=== PATIENT | female | born 2000 | race Caucasian/White ===

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

== ENCOUNTER 2022-04-16 08:51 | Emergency (ER) | payer OTHER, SELFPAY ==
--- NOTE | 2022-04-16 08:51 | ECG_ITS ---
APPROVED REPORT Exam: Resting ECG HR:106 bpm ECG Measurements Heart Rate 106 AXES WV 124 P 39 QRSd 87 QRS 34 QT 339 T 1 QTc 401 Conclusion SINUS TACHYCARDIA NONSPECIFIC ST & T-WAVE ABNORMALITY ABNORMAL RHYTHM ECG UNCONFIRMED REPORT Electronically signed by : Yonny Howell MD 04/16/2022 19:58:35
[2022-04-16 08:53] VITALS: BP 143/93; PULSE 110; RESP 18; TEMP 36.9; O2SAT 98; BMI 28.3
--- NOTE | 2022-04-16 09:02 | PC.NURSE ---
DR. GRANT AT BEDSIDE FOR EVALUATION
[2022-04-16 09:20] LABS: Basophils % 0.3 % (0.1-2.0); Eosinophils # 0.2 K/mm3 (0.0-0.4); Eosinophils % 1.3 % (0.1-12.0); Hematocrit 33.9 % (37.0-47.0); Lymphocytes # 2.9 K/mm3 (0.7-4.5); Lymphocytes % 20.8 % (10-50); Mean Corpuscular HGB Conc 32.5 g/dL (31.8-35.4); Mean Corpuscular Hemoglobin 27.6 pg (27.0-31.2); Mean Corpuscular Volume 84.9 fl (81-99); Mean Platelet Volume 9.5 fl (7.4-10.4); Monocytes # 0.5 K/mm3 (0.1-1.0); Monocytes % 3.2 % (1.7-9.3); Neutrophils # 10.4 K/mm3 (1.8-7.8); Neutrophils % 74.4 % (37.0-80.0); Platelet Count 313 K/mm3 (142-424); Red Blood Count 3.99 M/mm3 (4.20-5.40); Red Cell Distribution Width 13.1 % (11.5-17.5)
[2022-04-16 09:23] LABS: Chloride 106 mmol/L (98-107)
[2022-04-16 09:24] LABS: Potassium 3.7 mmoL/L (3.5-5.1); Sodium 134 mmol/L (136-145)
[2022-04-16 09:26] LABS: Alanine Aminotransferase 12 U/L (12-78); Aspartate Amino Transferase 19 U/L (14-36); Blood Urea Nitrogen 7 mg/dl (7-17); Creatinine Clearance Estimated 273 mL/min (50-200); Estimated Glomerular Filt Rate 203 ml/min (>60); GFR (African American) 246 ML/MIN (>60)
[2022-04-16 09:27] LABS: Albumin Level 3.5 g/dl (3.5-5.0); Albumin/Globulin Ratio 1.2 (1.1-1.8); Alkaline Phosphatase 134 U/L (38-126); Anion Gap 5.7 mEq/L (5-15); Calcium 9.2 mg/dl (8.4-10.2); Carbon Dioxide 26 mmol/L (22.0-30.0); Glucose 82 mg/dl (74-100); Total Protein,Serum 6.5 g/dl (6.3-8.2)
[2022-04-16 09:31] LABS: Bilirubin,Total < 0.1 mg/dl (0.2-1.3)
[2022-04-16 09:34] LABS: NT Pro Brain Natriuretic Pep. 42.2 pg/mL (0-125)
[2022-04-16 09:38] LABS: Troponin I < 0.01 ng/ml (0.00-0.034)
--- NOTE | 2022-04-16 10:05 | PC.NURSE ---
DR. GRANT AT BEDSIDE TO REEVALUATE PT
[2022-04-16 10:10] VITALS: BP 125/75; PULSE 85; RESP 16; TEMP 36.7; O2SAT 100
--- NOTE | 2022-04-16 10:10 | HMH.EDCP ---
Discharge Plan Disposition Patient Disposition: Home, Self-Care Condition: Good Prescriptions Prescriptions: No Action Xulane 150-35 mcg/24 hr patch weekly 1 patch TRANSDERMA Q7D Rx Instructions: apply once weekly for 3 weeks of a 4-week cycle ondansetron 4 mg tablet,disintegrating 4 mg PO Q6H PRN (Reason: nausea and vomiting) 5 Days Qty: 20 0RF fluticasone propionate 120 SPR/BOT bottle 1 spr NS DAILY 14 Days Qty: 1 0RF Referrals Follow up/Referrals: Provider,Referral, MD [Primary Care Provider] - See instructions Activity Restrictions/Add. Instructions Additional Instructions/Restrictions: Please see your OBGYN within the next 2 days. Please continue to drink plenty of water and eat 3 balanced meals. Please return to ED if your symptoms worsen or reoccur. Please continue to take your anti nausea medication as prescribed. Clinical Impressions Clinical Impression: Atypical chest pain Stand Alone Forms Stand Alone Forms: Work/School Release Instructions Patient Instructions: DI for Atypical Chest Pain Print Language Print Language: Finnish Discharge ED Provider: Darya Singh Chest Pain HPI General Chief Complaint: Chest Pain Stated Complaint: SOB Time Seen by Provider: 04/16/22 09:00 Mode of Arrival: Ambulatory Source of Information: Patient Limitations: No Limitations Description of Symptoms (Recalled from ER Triage Doc. 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 PT STATES IT FELT LIKE ANXIETY STATES SHE HASN'T HAD THIS BEFORE. REPORTS BEING STRESSED. PT IS 28 WEEKS History of Present Illness HPI narrative: Miss munguia is a 21 yo female currenlty 28 weeks complicated by hyperemesis gravidum w/ no significant PMH presenting to the ED for chest pressure and dyspnea while at work. 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 She does have hx of anxiety, unclear if this is related. She reports she has not been on anxiety medications since 2019. She has been more stressed as her grandmother has moved in. She denies any other known stressors. Chest pain much improved shortly after arrival. complaint: chest pain Onset (ago): minute(s) Duration: constant Activity at onset: during rest Pain location: substernal Severity: moderate Quality: tightness Pain radiation: none Relieving factors: nothing Exacerbating factors: nothing Related Data Home Medications Medication Instructions Recorded Confirmed norelgestromin 150 mcg-e.estradiol 1 patch transdermal Q7D 06/04/19 05/19/20 35 mcg/24 hr weekly transderm patch (Xulane) Previous Rx's Medication Instructions Recorded ondansetron 4 mg disintegrating 4 mg PO Q6H PRN nausea and 05/19/20 tablet vomiting 5 days #20 tabs fluticasone propionate 50 1 spr NS DAILY 14 days ##1 08/06/20 mcg/actuation nasal spray,suspension Allergies Allergy/AdvReac Type Severity Reaction Status Date / Time Penicillins Allergy Severe Anaphylaxis Verified 08/06/20 14:56 PFSH PFSH Disclaimer: The information contained in this section may have been updated after the patient was seen, as this information can be updated by other users. Surgical History H/O adenoidectomy H/O wisdom tooth extraction Hx of tonsillectomy Family History Other No significant family history Social History Smoking Status: Never smoker alcohol intake: never substance use type: denies use current occupational status: employed Travel in the last 8 weeks: None household members: family housing: house ROS Obtained: Yes All systems reviewed & no additional complaints except as documented Physical Exam Gene
== END 2022-04-16 10:10 | disposition home or self-care (01) ==
PROVIDERS: Emergency Provider Student in an Organized Health Care Education/Training Program
DX: O26.893 Other specified pregnancy related conditions, third trimester (principal); R07.89 Other chest pain; R06.02 Shortness of breath; Z3A.28 28 weeks gestation of pregnancy; Z88.0 Allergy status to penicillin
CPT/HCPCS: 80053; 83880; 84484; 85025; 93005; 96365; 99284

== ENCOUNTER 2022-06-09 10:09 | Emergency (ER) | payer OTHER, SELFPAY ==
--- NOTE | 2022-06-09 11:19 | EXP.UTC ---
Discharge Plan Disposition Patient Disposition: Home, Self-Care Condition: Good Prescriptions Prescriptions: New azithromycin [Zithromax] 250 mg tablet 250 mg PO UD DOSE PK Qty: 6 0RF Rx Instructions: Take two (2) tablets today, then one (1) tablet days #2 thru #5 No Action Xulane 150-35 mcg/24 hr patch weekly 1 patch TRANSDERMA Q7D Rx Instructions: apply once weekly for 3 weeks of a 4-week cycle ondansetron 4 mg tablet,disintegrating 4 mg PO Q6H PRN (Reason: nausea and vomiting) 5 Days Qty: 20 0RF fluticasone propionate 120 SPR/BOT bottle 1 spr NS DAILY 14 Days Qty: 1 0RF Referrals Follow up/Referrals: Provider,Referral, MD [Primary Care Provider] - See instructions Activity Restrictions/Add. Instructions Additional Instructions/Restrictions: Drink plenty of fluids. Take tylenol for pain or fever. Take the medications as directed. Follow up with your regular doctor. 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 Clinical Impressions Clinical Impression: Sinusitis, Instructions Patient Instructions: DI for Sinusitis Discharge ED Provider: Poncho Beckford [facility] [place] HPI General Stated complaint: Ear Ache,Sore throat Time Seen by Provider: 06/09/22 11:19 History of Present Illness Provider Complaint: She states that for the past 3 days she has had sinus congestion and chest congestion. She is 35 weeks . Related Data Home Medications Medication Instructions Recorded Confirmed norelgestromin 150 mcg-e.estradiol 1 patch transdermal Q7D 06/04/19 05/19/20 35 mcg/24 hr weekly transderm patch (Xulane) Previous Rx's Medication Instructions Recorded ondansetron 4 mg disintegrating 4 mg PO Q6H PRN nausea and 05/19/20 tablet vomiting 5 days #20 tabs fluticasone propionate 50 1 spr NS DAILY 14 days ##1 08/06/20 mcg/actuation nasal spray,suspension azithromycin 250 mg tablet 250 mg PO UD DOSE PK #6 tabs 06/09/22 (Zithromax) Allergies Allergy/AdvReac Type Severity Reaction Status Date / Time Penicillins Allergy Severe Anaphylaxis Verified 06/09/22 11:35 [facility] Disclaimer: The information contained in this section may have been updated after the patient was seen, as this information can be updated by other users. Surgical History H/O adenoidectomy H/O wisdom tooth extraction Hx of tonsillectomy Family History Other No significant family history Social History Smoking Status: Never smoker alcohol intake: never substance use type: denies use current occupational status: employed Travel in the last 8 weeks: None household members: family housing: house ROS Obtained: Yes All systems reviewed & no additional complaints except as documented Constitutional Constitutional: Denies chills, Denies fever(s) and Reports poor appetite Eyes Eyes: Denies eye discharge ENT Ears, Nose, Mouth, and Throat: Denies ear discharge, Reports otalgia, Denies hearing loss, Denies sinus pain and Reports sore throat Cardiovascular Cardiovascular: Denies chest pain and Denies dyspnea Respiratory Respiratory: Denies chest congestion, Reports cough and Denies dyspnea Gastrointestinal Gastrointestingal: Denies abdominal pain, diarrhea, nausea or vomiting Musculoskeletal Musculoskeletal: Denies arthralgias Integumentary/Breasts Skin/Breast: Denies rash Physical Exam General General appearance: alert and in no apparent distress Eye Eye exam: Present normal appearance, PERRL and EOMI ENT ENT exam: Present mucous membranes moist and normal external ear exam Expanded ENT Exam External ear exam: Present normal external inspection TM/Canal exam: Bilateral TM: erythema and bulging Nose exam: Absent sinus tenderness Nasal speculum exam: Bilat
[2022-06-09 11:20] VITALS: BP 129/79; PULSE 102; RESP 20; TEMP 36.8; O2SAT 99; BMI 30.9
[2022-06-09 11:33] LABS: UTC Strep Screen (Rapid) Negative (Negative)
[2022-06-09 12:01] VITALS: BP 129/79; PULSE 102; RESP 20; TEMP 36.8; O2SAT 99
== END 2022-06-09 12:00 | disposition home or self-care (01) ==
PROVIDERS: Emergency Provider Nurse Practitioner Family
DX: O26.893 Other specified pregnancy related conditions, third trimester (principal); J32.9 Chronic sinusitis, unspecified; Z3A.35 35 weeks gestation of pregnancy
CPT/HCPCS: 87880; 99212; 99213; C9803; G0463; U0003; U0005

== ENCOUNTER 2023-04-22 17:31 | Emergency (ER) | payer OTHER, SELFPAY ==
[2023-04-22] VITALS (7 sets, daily range): BP systolic 117–141; BP diastolic 69–80; PULSE 65–102; RESP 18; TEMP 36.6–36.9; O2SAT 96–100; BMI 28.1
--- NOTE | 2023-04-22 18:34 | HMH.EDGENADL ---
Discharge Plan Disposition Patient Disposition: Home, Self-Care Prescriptions Prescriptions: No Action Xulane 150-35 mcg/24 hr patch weekly 1 patch TRANSDERMA Q7D Rx Instructions: apply once weekly for 3 weeks of a 4-week cycle ondansetron 4 mg tablet,disintegrating 4 mg PO Q6H PRN (Reason: nausea and vomiting) 5 Days Qty: 20 0RF fluticasone propionate 120 SPR/BOT bottle 1 spr NS DAILY 14 Days Qty: 1 0RF azithromycin [Zithromax] 250 mg tablet 250 mg PO UD DOSE PK Qty: 6 0RF Rx Instructions: Take two (2) tablets today, then one (1) tablet days #2 thru #5 Referrals Follow up/Referrals: Debra Arvizu APRN [Primary Care Provider] - See instructions Activity Restrictions/Add. Instructions Additional Instructions/Restrictions: Recommend taking large doses of MiraLAX and titrate with goal of having daily soft stools. Consider enemas as needed as well. 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 Please return to the emergency department if you develop any new or worsening symptoms or become concerned for your health. Clinical Impressions Clinical Impression: Abdominal pain Constipation Qualifiers: Constipation type: unspecified constipation type Qualified Code(s): K59.00 - Constipation, unspecified Stand Alone Forms Stand Alone Forms: Work/School Release Instructions Patient Instructions: DI for Acute Abdominal Pain Discharge ED Provider: Chito Hebert General Adult HPI General Chief complaint: Abdominal Pain Stated complaint: 8 wks no bowel movement 2 weeks Time Seen by Provider: 04/22/23 18:34 Mode of Arrival: Ambulatory Source of Information: Patient Limitations: No Limitations Description of Symptoms (Recalled from ER Triage Doc. by RN): c/o not being able to have a bm for 14 days, states her ob has given her about 18 different medicine to help with this issue. pt is 8 weeks History of Present Illness HPI narrative: 22-year-old female, G2, P1, 8 weeks presents for constipation. She reports generalized abdominal discomfort. She reports that she normally has bowel movements every day. Reports that she has IBS. For the last 2 weeks she has been unable to have a bowel movement despite multiple enemas and MiraLAX/laxatives. She reports intermittent fever, but also has had a URI recently. Denies any urinary symptoms. Related Data Home Medications Medication Instructions Recorded Confirmed norelgestromin 150 mcg-e.estradiol 1 patch transdermal Q7D 06/04/19 05/19/20 35 mcg/24 hr weekly transderm patch (Xulane) Previous Rx's Medication Instructions Recorded ondansetron 4 mg disintegrating 4 mg PO Q6H PRN nausea and 05/19/20 tablet vomiting 5 days #20 tabs fluticasone propionate 50 1 spr NS DAILY 14 days ##1 08/06/20 mcg/actuation nasal spray,suspension azithromycin 250 mg tablet 250 mg PO UD DOSE PK #6 tabs 06/09/22 (Zithromax) Allergies Allergy/AdvReac Type Severity Reaction Status Date / Time Penicillins Allergy Severe Anaphylaxis Verified 06/09/22 11:35 [facility] Disclaimer: The information contained in this section may have been updated after the patient was seen, as this information can be updated by other users. Surgical History H/O adenoidectomy H/O wisdom tooth extraction Hx of tonsillectomy Family History Other No significant family history Social History Smoking Status: Never smoker alcohol intake: never substance use type: denies use current occupational status: employed Travel in the last 8 weeks: None household members: family housing: house ROS Obtained: Yes All systems reviewed & no additional complaints except as documented Physical Exam General General appearance: alert and in no apparent distress
--- NOTE | 2023-04-22 19:00 | PC.NURSE ---
Pt moved to room 1 and assiste to change into gown. Warm blanket provided.
[2023-04-22 20:12] LABS: Microscopic, Urine URINE MICROSCOPIC (MICROSCOPIC)
[2023-04-22 20:16] LABS: Appearance,Urine CLEAR (Clear); Bilirubin,Urine Negative (Negative); Blood, Urine Negative (Negative); Color,Urine YELLOW (Yellow); Glucose,Urine (UA) Negative (Negative); Ketones,Urine Negative (Negative); Leukocyte Esterase,Urine Negative (Negative); Nitrate,Urine Negative (Negative); Protein,Urine Negative (Negative); Specific Gravity, Urine >= 1.030 (1.005-1.030)
[2023-04-22 20:46] LABS: Calcium Oxalate Crystals,Urine 3+ /lpf; RBC,Urine Occasional #/hpf (0-3); Squamous Epithelial Cell,Urine Occasional #/hpf (0-5)
[2023-04-22 21:08] LABS: Basophils # 0.1 K/mm3 (0-0.2); Basophils % 0.4 % (0.1-2.0); Eosinophils # 0.2 K/mm3 (0.0-0.4); Eosinophils % 1.9 % (0.1-12.0); Hematocrit 38.9 % (37.0-47.0); Hemoglobin 13.5 g/dL (12.2-16.2); Lymphocytes # 4.2 K/mm3 (0.7-4.5); Lymphocytes % 34.2 % (10-50); Mean Corpuscular HGB Conc 34.7 g/dL (31.8-35.4); Mean Corpuscular Hemoglobin 27.8 pg (27.0-31.2); Mean Corpuscular Volume 80.2 fl (81-99); Mean Platelet Volume 9.4 fl (7.4-10.4); Monocytes # 0.5 K/mm3 (0.1-1.0); Monocytes % 3.9 % (1.7-9.3); Neutrophils # 7.3 K/mm3 (1.8-7.8); Neutrophils % 59.5 % (37.0-80.0); Platelet Count 281 K/mm3 (142-424); Red Blood Count 4.85 M/mm3 (4.20-5.40); Red Cell Distribution Width 14.1 % (11.5-17.5); White Blood Count 12.2 K/mm3 (4.8-10.8)
--- NOTE | 2023-04-22 21:17 | PC.NURSE ---
pt refused to let me put blood pressure cuff on her but did let me put pulse ox on. she reported pain and that she could throw up.
[2023-04-22 21:18] LABS: Lactic Acid 1.3 mmol/L (0.7-2.1)
[2023-04-22 21:56] LABS: Alanine Aminotransferase 44 U/L (12-78); Albumin Level 4.4 g/dl (3.5-5.0); Albumin/Globulin Ratio 1.3 (1.1-1.8); Alkaline Phosphatase 95 U/L (38-126); Anion Gap 10.7 mEq/L (5-15); Aspartate Amino Transferase 33 U/L (14-36); Bilirubin,Total 0.2 mg/dl (0.2-1.3); Blood Urea Nitrogen 7 mg/dl (7-17); Calcium 9.1 mg/dl (8.4-10.2); Carbon Dioxide 23 mmol/L (22.0-30.0); Chloride 104 mmol/L (98-107); Creatinine Clearance Estimated 191 mL/min (50-200); Estimated Glomerular Filt Rate 126 ml/min (>60); GFR (African American) 153 ML/MIN (>60); Globulin 3.3 g/dL (1.3-3.2); Glucose 124 mg/dl (74-100); Lipase 92 U/L (23-300); Magnesium 1.7 mg/dl (1.6-2.3); Potassium 3.7 mmoL/L (3.5-5.1); Sodium 134 mmol/L (136-145); Total Protein,Serum 7.7 g/dl (6.3-8.2)
[2023-04-22 22:43] LABS: HCG,Quantitative 113020 mIU/ml (0-5.42)
== END 2023-04-22 22:42 | disposition home or self-care (01) ==
PROVIDERS: Emergency Provider Emergency Medicine; PCP Nurse Practitioner Family
DX: O99.611 Diseases of the digestive system complicating pregnancy, first trimester (principal); K59.00 Constipation, unspecified; Z3A.08 8 weeks gestation of pregnancy
CPT/HCPCS: 80053; 81001; 83605; 83690; 83735; 84702; 85025; 96360; 99285

== ENCOUNTER 2023-05-22 09:50 | Emergency (ER) | payer OTHER, SELFPAY ==
[2023-05-22 10:05] VITALS: BP 131/84; PULSE 115; RESP 20; TEMP 36.8; O2SAT 96; BMI 29.6
--- NOTE | 2023-05-22 10:43 | ED_ITS ---
Discharge Plan Disposition Patient Disposition: Home, Self-Care Condition: Good Prescriptions Prescriptions: No Action Vitamin 27 mg iron- 800 mcg tablet 1 tab PO DAILY Patient Comments: TAKE 1 TABLET BY MOUTH ONCE DAILY Referrals Follow up/Referrals: Provider,Referral, [Primary Care Provider] - See instructions Activity Restrictions/Add. Instructions Additional Instructions/Restrictions: *Monitor Temp, Over the counter Motrin or Tylenol as directed/as needed Tylenol every 4 hours and Motrin every 6 hours (as long as your family doctor has told you that you can take it) for fever or pain. and straight to ER if unable to lower temp less than 101.0 after medication given *Warm salt water gargles may help to soothe the throat *Throat Lozenges? *Warm fluids like tea with honey may help to soothe the throat? *Sleep elevated *Humidifier/Vaporizer Your throat swab was sent for culture. Those results are typically sent to your primary care. Be sure to follow up in 2-3 days with your family doctor/primary care physician if no improvement so they can review those result and treat if necessary. If you don?t have a primary care doctor, I recommend you get one but in the mean time, you will have to return to a walk in clinic Follow up IMMEDIATELY for new or worsening symptoms or no Noticeable improvement over the next 48-72 hours. 911 for difficulty breathing or swallowing Clinical Impressions Clinical Impression: Viral upper respiratory infection Instructions Patient Instructions: DI for Viral Syndrome, Sore Throat Discharge ED Provider: Nell Juarez [facility] [place] HPI General Stated complaint: cough, sore throat Mode of Arrival: Ambulatory Source of Information: Patient Limitations: No Limitations Time Seen by Provider: 05/22/23 10:43 Description of Symptoms (Recalled from Triage Doc. by RN): Pt's symptoms are snotty nose, cough, sore throat, vomiting, and (poop) stomach cramps. HEENT Symptoms (Recalled from RN notes): Yes Resp Symptoms (Recalled from RN notes): No Skin Symptoms (Recalled from RN notes): No MS Symptoms (Recalled from RN notes): No Functional Status (Recalled from RN notes): n/a History of Present Illness Provider Complaint: Patient states she is 12wks OB states she has been having snotty nose, cough, sore throat, N/V and having cramping like feeling like she is going to use the bathroom but has been having problems with constipation and she has seen OBGYN for Denies any cramping or pain at this time States that she is worried she may have strep throat Related Data Home Medications Medication Instructions Recorded Confirmed vits no.130-ferrous fum 1 tab PO DAILY 05/22/23 05/22/23 27 mg iron-folic acid 800 mcg tablet ( Vitamin) Allergies Allergy/AdvReac Type Severity Reaction Status Date / Time Penicillins Allergy Severe Anaphylaxis Verified 05/22/23 10:43 Worker's Comp Is this a Worker's Comp case?: No [facility] Disclaimer: The information contained in this section may have been updated after the patient was seen, as this information can be updated by other users. Surgical History H/O adenoidectomy H/O wisdom tooth extraction Hx of tonsillectomy Family History Other No significant family history Social History Smoking Status: Never smoker alcohol intake: never substance use type: denies use current occupational status: employed Travel in the last 8 weeks: None household members: family housing: house ROS Obtained: Yes All systems reviewed & no additional complaints except as docu mented and Yes Systems reviewed as appropriate & no additional complaints except as documented Constitutional Constitutional: Reports system reviewed and no additional complaints, except as documented and Reports as per HPI ENT Ears, Nose, Mouth, and Throat: Reports system reviewed and no additional c omplaints, except as documented, Reports as per HPI, Reports nasal congestion, Reports nasal discharge and Reports sore throat Cardiovascular Cardiovascular: Reports system reviewed and no additional complaints, except as documented and Reports as per HPI Respiratory Respiratory: Reports system reviewed and no additional complaints, except as documented and Reports as per HPI Gastrointestinal Gastrointestingal: Reports system reviewed and no additional complaints, except as documented, as per HPI, constipation, cramping (on and off before vomiting and using the bathroom) and vomiting Musculoskeletal Musculoskeletal: Reports system reviewed and no additional complaints, except as documented and Reports as per HPI Integumentary/Breasts Skin/Breast: Reports system reviewed and no additional complaints, except as documented and Reports as per HPI Physical Exam General General appearance: alert and in no apparent distress ENT ENT exam: Absent mucous membranes moist Expanded ENT Exam Nose exam: Absent sinus tenderness Throat exam: Present other (Pharyngeal erythema noted with PND) Respiratory Respiratory exam: Present normal lung sounds bilaterally; Absent respiratory distress or wheezes Cardiovascular Cardiovascular exam: Present regular rate, normal rhythm and tachycardia Neurological Exam Neurological exam: Present alert, oriented X3 and normal gait Medical Decision Making Gregory Inquiry Pt receiving controlled substance: No Gregory was queried for this patient: No Vital Signs: 05/22/23 10:05 Temperature 98.3 F Temperature Source Oral Pulse Rate [Right Radial] 115 H Respiratory Rate 20 Blood Pressure [Right Arm] 131/84 Blood Pressure Mean [Right Arm] 99 Blood Pressure Source [Right Arm] Automatic Cuff Blood Pressure Position [Right Arm] Sitting 02 Sat by Pulse Oximetry 96 Oxygen Delivery Method Room Air Lab Data Lab results reviewed: Yes I reviewed the patient's lab results.
[2023-05-22 10:54] LABS: UTC Influenza A Antigen Negative (Negative); UTC Influenza B Antigen Negative (Negative); UTC Strep Screen (Rapid) Negative (Negative)
[2023-05-22 11:12] VITALS: BP 131/84; PULSE 120; RESP 18; TEMP 36.8; O2SAT 96
[2023-05-22 11:18] LABS: Adenovirus,PCR Not Detected (NotDetected); Coronavirus 19, PCR Not Detected (NotDetected); Coronavirus 229E Not Detected (NotDetected); Coronavirus NL63 Not Detected (NotDetected); Coronavirus OC43 Not Detected (NotDetected); Coronovirus HKU1,PCR Not Detected (NotDetected); Human Metapneumovirus Not Detected (NotDetected); Influenza A, PCR Not Detected (NotDetected); Influenza AH1, 2009 Not Detected (NotDetected); Influenza AH1, PCR Not Detected (NotDetected); Influenza AH3,PCR Not Detected (NotDetected); Influenza B, PCR Not Detected (NotDetected); Parainfluenza 1, PCR Not Detected (NotDetected); Parainfluenza 2, PCR Not Detected (NotDetected); Parainfluenza 3, PCR Not Detected (NotDetected); Parainfluenza 4, PCR Not Detected (NotDetected); Respiratory Syncytial Virus Not Detected (NotDetected); Rhinovirus/Enterovirus Not Detected (NotDetected)
== END 2023-05-22 11:12 | disposition home or self-care (01) ==
PROVIDERS: Emergency Provider Nurse Practitioner
DX: O26.891 Other specified pregnancy related conditions, first trimester (principal); J06.9 Acute upper respiratory infection, unspecified; Z3A.12 12 weeks gestation of pregnancy; R05.9 Cough, unspecified; R07.0 Pain in throat; R11.2 Nausea with vomiting, unspecified; R09.81 Nasal congestion; B34.9 Viral infection, unspecified
CPT/HCPCS: 87632; 87635; 87804; 87880; 99212; 99214; G0463

== ENCOUNTER 2023-06-25 01:15 | Emergency (ER) | payer OTHER, SELFPAY ==
[2023-06-25 01:16] VITALS: BP 134/76; PULSE 97; RESP 20; TEMP 36.5; O2SAT 97; BMI 27.4
--- NOTE | 2023-06-25 01:17 | ECG_ITS ---
APPROVED REPORT Exam: Resting ECG HR:111 bpm ECG Measurements Heart Rate 111 AXES LA 134 P 55 QRSd 87 QRS 61 QT 324 T 3 QTc [address] DEVIATION AND MODERATE T-WAVE ABNORMALITY, CONSIDER ANTEROLATERAL ISCHEMIA [-0.1+ mV T-WAVE IN V3-V6] ABNORMAL ECG UNCONFIRMED REPORT Electronically signed by : Yonny Howell MD 06/25/2023 21:54:37
--- NOTE | 2023-06-25 01:32 | HMH.EDGENADL ---
Discharge Plan Disposition Patient Disposition: Home, Self-Care Prescriptions Prescriptions: New lidocaine 5 % adhesive patch,medicated 1 patch topical DAILY PRN (Reason: pain) Qty: 30 0RF Rx Instructions: leave on most painful area for up to 12 hrs No Action Vitamin 27 mg iron- 800 mcg tablet 1 tab PO DAILY Patient Comments: TAKE 1 TABLET BY MOUTH ONCE DAILY Referrals Follow up/Referrals: Provider,Referral, MD [Primary Care Provider] - See instructions Activity Restrictions/Add. Instructions Additional Instructions/Restrictions: Please follow-up with your primary care provider. Please return to the emergency department if you develop any new or worsening symptoms or become concerned for your health. Clinical Impressions Clinical Impression: Chest pain, Back pain Discharge ED Provider: Chito Hebert Adult HPI General Chief complaint: Chest Pain Stated complaint: chest pain Time Seen by Provider: 06/25/23 01:20 Mode of Arrival: Ambulatory Source of Information: Patient Limitations: No Limitations Description of Symptoms (Recalled from ER Triage Doc. by RN): Chest pain that started at 2230 midsternal started radiaiting into her jaw and midback about 2300. No medical hx, pt states she is currently 17 weeks History of Present Illness HPI narrative: 22-year-old female, , 17 weeks presents with chest pain neck pain back pain. She reports it started with chest pain around 1030 when she was laying down. She then started having some right-sided neck pain and back pain. She reports pain is worse with palpation, worse with movement. She denies any history of issues before. She denies any recent fever or illness. She denies any history of blood clots or cardiac pathology. Related Data Home Medications Medication Instructions Recorded Confirmed vits no.130-ferrous fum 1 tab PO DAILY 05/22/23 05/22/23 27 mg iron-folic acid 800 mcg tablet ( Vitamin) Previous Rx's Medication Instructions Recorded lidocaine 5 % topical patch 1 patch topical DAILY PRN pain #30 06/25/23 ea Allergies Allergy/AdvReac Type Severity Reaction Status Date / Time Penicillins Allergy Severe Anaphylaxis Verified 05/22/23 10:43 [facility] Disclaimer: The information contained in this section may have been updated after the patient was seen, as this information can be updated by other users. Surgical History H/O adenoidectomy H/O wisdom tooth extraction Hx of tonsillectomy Family History Other No significant family history Social History Smoking Status: Never smoker alcohol intake: never substance use type: denies use current occupational status: employed Travel in the last 8 weeks: None household members: family housing: house ROS Obtained: Yes All systems reviewed & no additional complaints except as documented Physical Exam General General appearance: alert and in no apparent distress Head Head exam: atraumatic and normocephalic Eye Eye exam: Present normal appearance, PERRL and EOMI ENT ENT exam: Present normal oropharynx and normal external ear exam Neck Neck exam: Present full ROM and other (Scant right anterior cervical lymphadenopathy noted, on palpation this reproduces patient's right neck pain.) Chest Chest inspection: Present normal inspection and symmetric chest wall rise; Absent tenderness Respiratory Respiratory exam: Present normal lung sounds bilaterally; Absent respiratory distress Cardiovascular Cardiovascular exam: Present normal rhythm and tachycardia Abdominal Exam Abdominal exam: Present soft; Absent distention, tenderness or guarding Extremities Exam Extremities exam: Present normal inspection; Absent edema or joint swelling Back Exam Back exam: Present normal inspection and tenderness (Tenderness to ovation of the right mid thoracic back.) Neurological Exam Neurological exam: Present alert and oriented X3; Absent motor sensory deficit Psychiatric Psychiatric exam: Present normal affect and normal mood Skin Skin exam: Present warm, dry and normal color Lymphatic Lymphatic Findings: no adenopathy Medical Decision Making Medical Records Medical records reviewed: Yes I reviewed the patient's medical records. Gregory Inquiry Pt receiving controlled substance: No Gregory was queried for this patient: No Vital Signs: 06/25/23 01:16 Temperature 97.7 F Temperature Source Oral Pulse Rate [Left] 97 H Respiratory Rate 20 Blood Pressure [Right Arm] 134/76 Blood Pressure Mean [Right Arm] 95 Blood Pressure Source [Right Arm] Automatic Cuff Blood Pressure Position [Right Arm] Sitting 02 Sat by Pulse Oximetry 97 Oxygen Delivery Method Room Air Lab Data Lab results reviewed: Yes I reviewed the patient's lab results. Lab Results 06/25/23 01:35: WBC 9.4, RBC 4.40, Hgb 12.2, Hct 36.5 L, MCV 83.0, MCH 27.8, MCHC 33.5, RDW 13.6, Plt Count 216, MPV 9.5, Neut % (Auto) 69.2, Lymph % (Auto) 24.8, [place] % (Auto) 3.9, Eos % (Auto) 1.7, Baso % (Auto) 0.4, Neut # (Auto) 6.5, Lymph # (Auto) 2.3, [place] # (Auto) 0.4, Eos # (Auto) 0.2, Baso # (Auto) 0.0, D-Dimer 0.49, Sodium 135 L, Potassium 3.5, Chloride 107, Carbon Dioxide 21 L, Anion Gap 10.5, BUN 6 L, Creatinine 0.40 L, Estimated Creat Clear 271, Estimated GFR 201, Est GFR ( Amer) 244, Glucose 98, Calcium 8.7, Total Bilirubin 0.3, AST 19, ALT 16, Alkaline Phosphatase 96, Troponin I < 0.01, Total Protein 6.5, Albumin 3.5, Globulin 3.0, Albumin/Globulin Ratio 1.2 06/25/23 01:35 06/25/23 01:35 Orders (Tests/Meds): ED MEDICATIONS Discontinued Medications Generic Name Dose Route Start Last Admin Trade Name Freq PRN Reason Stop Dose Admin Acetaminophen 1,000 mg 06/25/23 01:28 06/25/23 01:57 Acetaminophen 500mg Tab PO 06/25/23 01:29 Not Given ONCE ONE Acetaminophen 1,000 mg 06/25/23 01:47 06/25/23 01:53 Acetaminophen 325mg/10.15ml Udc PO 06/25/23 01:48 1,000 mg ONCE ONE Administration Lidocaine 1 each 06/25/23 01:28 06/25/23 01:43 Lidocaine 5% Transdermal Patch TP 06/25/23 01:29 1 each ONCE ONE Administration ORDERS Category Date Time Status CBC w/Auto Diff [Complete Blood Count Auto Diff] Stat Lab 06/25/23 01:35 Completed CMP [Comprehensive Metabolic Panel] Stat Lab 06/25/23 01:35 Completed D-Dimer Stat Lab 06/25/23 01:35 Completed Troponin I Q3H Lab 06/25/23 01:35 Completed Troponin I Q3H Lab 06/25/23 04:30 Ordered ECG Data Tracing #1: I reviewed this ECG and interpreted as documented below: Sinus rhythm, rate of 111, diffuse T wave inversions noted in the precordial leads. This is consistent with prior EKG in 2021. No evidence of arrhythmia. ECG initial impression date: 06/25/23 ECG initial impression time: : HEART Score History (anamnesis): Slightly suspicious ECG: Non-specific disturbance Age: <45 years Risk factors: No known risk factors Troponin: </= normal limit HEART Score: 1 Medical Decision Narrative: 22-year-old female, G2, P1 at 17 weeks presents with chest pain neck pain and back pain starting several hours prior to arrival.. History was obtained via conversation with patient. On arrival, patient is [afebrile, hemodynamically stable, satting appropriately, alert, oriented x4, GCS 15], mildly tachycardic, moving all extremities spontaneously. Full physical exam performed and significant for scant right neck lymphadenopathy with associated tenderness, tenderness over the right side of the mid back that reproduces pain. Clear lungs bilaterally. Differential includes but is not limited to musculoskeletal pain, reflux, lymphadenopathy, cardiac pathology, PE. Patient was given p.o. Tylenol, lidocaine patch for symptomatic management and correction of underlying abnormalities. Workup initiated including CBC CMP D-dimer troponin EKG. Unable to PERC out secondary to tachycardia. Chest x-ray was considered, but given status and normal lung exam, is felt to be of low utility. Aspirin was considered but deemed unnecessary given no significant concern for ACS. On re-evaluation, patient [remains afebrile, HD stable.] Reports mild symptomatic improvement. On my interpretation of commercial insurance underwriter, patient is now in normal sinus rhythm, tachycardia resolved. Laboratory workup independently interpreted by me and significant for no significant electrolyte derangement, D-dimer within normal limits. Initial troponin negative. No negation for repeat troponin given no significant turn for ACS. Given patient history, exam and workup, patient's presentation most likely represents musculoskeletal pain and developing right anterior cervical lymphadenopathy. No significant concern for emergent cardiac or pulmonary pathology at this time. Patient discharged in stable condition. Return precautions given. Procedures Risk/Benefits of Procedure(s) Were Explained: Yes Critical Care Critical Care Time Critical Care Time: No
[2023-06-25] MEDS: LIDOCAINE 5% TRANSDERMAL PATCH 1 EACH TP (01:43)
[2023-06-25 01:45] LABS: Basophils % 0.4 % (0.1-2.0); Eosinophils # 0.2 K/mm3 (0.0-0.4); Eosinophils % 1.7 % (0.1-12.0); Hematocrit 36.5 % (37.0-47.0); Hemoglobin 12.2 g/dL (12.2-16.2); Lymphocytes # 2.3 K/mm3 (0.7-4.5); Lymphocytes % 24.8 % (10-50); Mean Corpuscular HGB Conc 33.5 g/dL (31.8-35.4); Mean Corpuscular Hemoglobin 27.8 pg (27.0-31.2); Mean Platelet Volume 9.5 fl (7.4-10.4); Monocytes # 0.4 K/mm3 (0.1-1.0); Monocytes % 3.9 % (1.7-9.3); Neutrophils # 6.5 K/mm3 (1.8-7.8); Neutrophils % 69.2 % (37.0-80.0); Platelet Count 216 K/mm3 (142-424); Red Cell Distribution Width 13.6 % (11.5-17.5); White Blood Count 9.4 K/mm3 (4.8-10.8)
--- NOTE | 2023-06-25 01:46 | PC.NURSE ---
Pt unable to swallow pills
[2023-06-25 01:52] LABS: Alanine Aminotransferase 16 U/L (12-78); Albumin Level 3.5 g/dl (3.5-5.0); Albumin/Globulin Ratio 1.2 (1.1-1.8); Alkaline Phosphatase 96 U/L (38-126); Anion Gap 10.5 mEq/L (5-15); Aspartate Amino Transferase 19 U/L (14-36); Bilirubin,Total 0.3 mg/dl (0.2-1.3); Blood Urea Nitrogen 6 mg/dl (7-17); Calcium 8.7 mg/dl (8.4-10.2); Carbon Dioxide 21 mmol/L (22.0-30.0); Chloride 107 mmol/L (98-107); Creatinine Clearance Estimated 271 mL/min (50-200); Estimated Glomerular Filt Rate 201 ml/min (>60); GFR (African American) 244 ML/MIN (>60); Glucose 98 mg/dl (74-100); Potassium 3.5 mmoL/L (3.5-5.1); Sodium 135 mmol/L (136-145); Total Protein,Serum 6.5 g/dl (6.3-8.2)
[2023-06-25] MEDS: ACETAMINOPHEN 325MG/10.15ML UDC 1000 MG PO (01:53)
[2023-06-25 01:56] LABS: D-Dimer 0.49 ug/mL (0.0-0.5)
[2023-06-25 02:19] LABS: Troponin I < 0.01 ng/ml (0.00-0.034)
[2023-06-25 02:31] VITALS: BP 132/81; PULSE 86; RESP 18; TEMP 36.5; O2SAT 99
== END 2023-06-25 02:32 | disposition home or self-care (01) ==
PROVIDERS: Emergency Provider Emergency Medicine
DX: O26.892 Other specified pregnancy related conditions, second trimester (principal); R07.9 Chest pain, unspecified; M54.9 Dorsalgia, unspecified; Z3A.17 17 weeks gestation of pregnancy
CPT/HCPCS: 80053; 84484; 85025; 85378; 93005; 99284

== ENCOUNTER 2023-07-06 19:31 | Emergency (ER) | payer OTHER, SELFPAY ==
[2023-07-06 19:32] VITALS: BP 129/83; PULSE 116; RESP 20; TEMP 36.7; O2SAT 98; BMI 27.4
--- NOTE | 2023-07-06 19:50 | HMH.EDGENADL ---
Discharge Plan Disposition Patient Disposition: Home, Self-Care Prescriptions Prescriptions: New cefdinir 300 mg capsule 300 mg PO BID 7 Days Qty: 14 0RF No Action Vitamin 27 mg iron- 800 mcg tablet 1 tab PO DAILY Patient Comments: TAKE 1 TABLET BY MOUTH ONCE DAILY lidocaine 5 % adhesive patch,medicated 1 patch topical DAILY PRN (Reason: pain) Qty: 30 0RF Rx Instructions: leave on most painful area for up to 12 hrs Referrals Follow up/Referrals: Provider,Referral, MD [Primary Care Provider] - See instructions Activity Restrictions/Add. Instructions Additional Instructions/Restrictions: Call your family doctor to establish care for this visit to the emergency department and schedule follow-up within 48 hours to ensure improvement. If you have any worsening of your condition or any other concerning signs or symptoms, return to the emergency department or your primary care doctor for further evaluation. Take cefdinir twice daily for 7 days. Be aware cefdinir can cause diarrhea and dark/maroon stools, so do not be concerned if you have these symptoms. Clinical Impressions Clinical Impression: Acute bacterial sinusitis Discharge ED Provider: Ben De Los Santos General Adult HPI General Chief complaint: Upper Respiratory Infection Stated complaint: sinus pressure, runny nose, sore throat Time Seen by Provider: 07/06/23 19:34 History of Present Illness HPI narrative: This is a 22-year-old female with no relevant medical history presenting with acute on subacute worsening of sinus symptoms. Patient states that she has been having sore throat, cough, congestion for about 8 or 9 days. Today, she started having thick, green discharge from her nose associated with pressure in her face, behind her eyes, and in her teeth. Does not think she has had any fevers, has not been vomiting or having diarrhea. No vision changes, productive cough, or any other concerns. Related Data Home Medications Medication Instructions Recorded Confirmed vits no.130-ferrous fum 1 tab PO DAILY 05/22/23 05/22/23 27 mg iron-folic acid 800 mcg tablet ( Vitamin) Previous Rx's Medication Instructions Recorded lidocaine 5 % topical patch 1 patch topical DAILY PRN pain #30 06/25/23 ea cefdinir 300 mg capsule 300 mg PO BID 7 days #14 caps 07/06/23 Allergies Allergy/AdvReac Type Severity Reaction Status Date / Time Penicillins Allergy Severe Anaphylaxis Verified 05/22/23 10:43 [facility] Disclaimer: The information contained in this section may have been updated after the patient was seen, as this information can be updated by other users. Surgical History H/O adenoidectomy H/O wisdom tooth extraction Hx of tonsillectomy Family History Other No significant family history Social History Smoking Status: Never smoker alcohol intake: never substance use type: denies use current occupational status: employed Travel in the last 8 weeks: None household members: family housing: house ROS Obtained: Yes All systems reviewed & no additional complaints except as documented Physical Exam General General appearance: alert and in no apparent distress Head Head exam: atraumatic and normocephalic Eye Eye exam: Present normal appearance, PERRL and EOMI ENT ENT exam: Present mucous membranes moist Neck Neck exam: Present normal inspection, full ROM and trachea midline Respiratory Respiratory exam: Present normal lung sounds bilaterally; Absent respiratory distress, wheezes, stridor, accessory muscle use or prolonged expiratory phase Cardiovascular Cardiovascular exam: Present normal rhythm and tachycardia Abdominal Exam Abdominal exam: Present soft; Absent distention, tenderness, guarding, rebound or rigidity Extremities Exam Extremities exam: Absent edema Neurological Exam Neurological exam: Present alert, oriented X3, CN II-XII intact and normal gait; Absent motor sensory deficit Skin Skin exam: Present warm and dry; Absent diaphoresis or erythema Medical Decision Making Medical Records Medical records reviewed: Yes I reviewed the patient's medical records. Gregory Inquiry Pt receiving controlled substance: No Gregory was queried for this patient: No Vital Signs: 07/06/23 19:32 Temperature 98.0 F Temperature Source Oral Pulse Rate [Left] 116 H Respiratory Rate 20 Blood Pressure [Right Arm] 129/83 Blood Pressure Mean [Right Arm] 98 02 Sat by Pulse Oximetry 98 Oxygen Delivery Method Room Air Orders (Tests/Meds): ED MEDICATIONS Generic Name Dose Route Start Last Admin Trade Name Freq PRN Reason Stop Dose Admin Cefdinir 300 mg 07/06/23 19:50 07/06/23 19:55 Cefdinir 300mg Capsule PO 07/06/23 19:51 300 mg ONCE ONE Administration Medical Decision Narrative: This is a 22-year-old female with no relevant medical history presenting with acute on subacute worsening of sinus symptoms. Patient states that she has been having sore throat, cough, congestion for about 8 or 9 days. Today, she started having thick, green discharge from her nose associated with pressure in her face, behind her eyes, and in her teeth. Does not think she has had any fevers, has not been vomiting or having diarrhea. No vision changes, productive cough, or any other concerns. History was obtained via conversation with patient. On arrival, patient hemodynamically stable, alert, oriented x4, appropriate, GCS 15, moving all extremities spontaneously, pupils equal and reactive to light. Full physical exam performed and significant for well-appearing woman in no acute distress. Cardiopulmonary send within normal limits. Intermittently coughing. Afebrile, mildly tachycardic.. Differential includes viral versus bacterial sinusitis. Patient was given cefdinir for symptomatic management and correction of underlying abnormalities. She was kept in the emergency department for period of observation prior to discharge. She tolerated this well. Because patient very well-appearing, nontoxic, without any other concerning physical exam findings or history, deemed appropriate for outpatient management. Given patient presentation, workup, history, this most likely represents bacterial sinusitis. Because patient at baseline without signs or symptoms of clinical decompensation, deemed appropriate for discharge. Results were relayed to patient who voiced understanding and were agreeable to outpatient management and follow up. At the time of discharge the patient was hemodynamically stable, tolerating PO, and mobilizing appropriately. Critical Care Critical Care Time Critical Care Time: No
[2023-07-06] MEDS: CEFDINIR 300MG CAPSULE 300 MG PO (19:55)
--- NOTE | 2023-07-06 20:05 | PC.NURSE ---
Rounded on pt at this time. Pt has no complaints at this time.
[2023-07-06 20:30] VITALS: BP 131/79; PULSE 72; RESP 16; TEMP 36.8; O2SAT 98
== END 2023-07-06 20:31 | disposition home or self-care (01) ==
PROVIDERS: Emergency Provider Emergency Medicine
DX: J01.90 Acute sinusitis, unspecified (principal); J02.9 Acute pharyngitis, unspecified
CPT/HCPCS: 99283

== ENCOUNTER 2023-07-17 19:23 | Emergency (ER) | payer OTHER, SELFPAY ==
[2023-07-17 19:26] VITALS: BP 123/78; PULSE 101; RESP 16; TEMP 36.8; O2SAT 99; BMI 28.2
--- NOTE | 2023-07-17 19:57 | ECG_ITS ---
APPROVED REPORT Exam: Resting ECG HR:91 bpm ECG Measurements Heart Rate 91 AXES IL 156 P 55 QRSd 87 QRS 53 QT 331 T 15 QTc 380 Conclusion SINUS RHYTHM WITH SINUS ARRHYTHMIA No acute ND Electronically signed by : SAMEER MONTEJO, 07/18/2023 00:14:53
--- NOTE | 2023-07-17 19:58 | PC.NURSE ---
FHR 126
--- NOTE | 2023-07-17 19:59 | ED_ITS ---
Discharge Plan Disposition Patient Disposition: Xfer Other Prescriptions Prescriptions: No Action Vitamin 27 mg iron- 800 mcg tablet 1 tab PO DAILY Patient Comments: TAKE 1 TABLET BY MOUTH ONCE DAILY lidocaine 5 % adhesive patch,medicated 1 patch topical DAILY PRN (Reason: pain) Qty: 30 0RF Rx Instructions: leave on most painful area for up to 12 hrs cefdinir 300 mg capsule 300 mg PO BID 7 Days Qty: 14 0RF Referrals Follow up/Referrals: Glenn Vasquez MD [Primary Care Provider] - See instructions Activity Restrictions/Add. Instructions Additional Instructions/Restrictions: Please proceed directly to OB for evaluation. Clinical Impressions Clinical Impression: Pelvic pain affecting , Leukocytosis Discharge ED Provider: Chantelle Hood General Adult HPI General Chief complaint: Dizziness Stated complaint: SOA,abdominal pain Time Seen by Provider: 07/17/23 19:40 Mode of Arrival: Ambulatory Source of Information: Patient Limitations: No Limitations Description of Symptoms (Recalled from ER Triage Doc. by RN): pt c/o having a dizzy spell with blurred vision and back and lower abd pressure. pt states she is currently 20 weeks pregant History of Present Illness HPI narrative: This patient is a 22-year-old female presents to the emergency department for evaluation with concern for back and lower abdominal pain and pressure. She states that it feels like a constant squeezing. She is currently 20 weeks . She also complains of headache. She denies any other concerns, such as chest pain, shortness of breath, vaginal discharge, leaking of fluid, vaginal bleeding, or other concerns. On medical review, she has had multiple recent ED evaluations for similar complaints in the past. Related Data Home Medications Medication Instructions Recorded Confirmed vits no.130-ferrous fum 1 tab PO DAILY 05/22/23 05/22/23 27 mg iron-folic acid 800 mcg tablet ( Vitamin) Previous Rx's Medication Instructions Recorded lidocaine 5 % topical patch 1 patch topical DAILY PRN pain #30 06/25/23 ea cefdinir 300 mg capsule 300 mg PO BID 7 days #14 caps 07/06/23 Allergies Allergy/AdvReac Type Severity Reaction Status Date / Time Penicillins Allergy Severe Anaphylaxis Verified 05/22/23 10:43 [facility] Disclaimer: The information contained in this section may have been updated after the patient was seen, as this information can be updated by other users. Surgical History H/O wisdom tooth extraction H/O adenoidectomy Hx of tonsillectomy Family History Other No significant family history Social History Smoking Status: Never smoker alcohol intake: never substance use type: denies use current occupational status: employed Travel in the last 8 weeks: None household members: family housing: house ROS Obtained: Yes All systems reviewed & no additional complaints except as documented Physical Exam General General appearance: alert and anxious Head Head exam: atraumatic and normocephalic Eye Eye exam: Present normal appearance, PERRL and EOMI ENT ENT exam: Present normal exam, normal oropharynx, mucous membranes moist and normal external ear exam Neck Neck exam: Present normal inspection, full ROM and trachea midline; Absent tenderness Chest Chest inspection: Present normal inspection and symmetric chest wall rise; Absent tenderness Respiratory Respiratory exam: Present normal lung sounds bilaterally; Absent respiratory distress, wheezes, stridor or accessory muscle use Cardiovascular Cardiovascular exam: Present regular rate and normal rhythm Abdominal Exam Abdominal exam: Present soft and tenderness (Fundal/suprapubic); Absent distention, guarding, rebound or rigidity Extremities Exam Extremities exam: Present normal inspection, full ROM and normal capillary refill; Absent tenderness or edema Back Exam Back exam: Present normal inspection and full ROM; Absent tenderness Neurological Exam Neurological exam: Present alert, oriented X3, CN II-XII intact and normal gait; Absent motor sensory deficit Psychiatric Psychiatric exam: Present anxious Skin Skin exam: Present warm and dry Medical Decision Making Medical Records Medical records reviewed: Yes I reviewed the patient's medical records. Gregory Inquiry Pt receiving controlled substance: No Vital Signs: 07/17/23 19:26 07/17/23 21:06 Temperature 98.2 F 98.2 F Temperature Source Oral Oral Pulse Rate 91 H Pulse Rate [Right] 101 H Respiratory Rate 16 16 Blood Pressure 134/75 Blood Pressure [Right Arm] 123/78 Blood Pressure Mean [Right Arm] 93 02 Sat by Pulse Oximetry 99 Lab Data Lab results reviewed: Yes I reviewed the patient's lab results. Lab Results 07/17/23 20:09: WBC 16.9 H, RBC 4.47, Hgb 12.4, Hct 38.4, MCV 85.8, MCH 27.7, MCHC 32.2, RDW 13.5, Plt Count 294, MPV 9.2, Neut % (Auto) 79.3, Lymph % (Auto) 15.9, [place] % (Auto) 2.9, Eos % (Auto) 1.6, Baso % (Auto) 0.4, Neut # (Auto) 13.4 H, Lymph # (Auto) 2.7, [place] # (Auto) 0.5, Eos # (Auto) 0.3, Baso # (Auto) 0.1, Sodium 137, Potassium 3.6, Chloride 105, Carbon Dioxide 24, Anion Gap 11.6, BUN 6 L, Creatinine 0.50 L, Estimated Creat Clear 223, Estimated GFR 156, Est GFR ( Amer) 188, Glucose 96, Calcium 9.2, Total Bilirubin 0.3, AST 18, ALT 14, Alkaline Phosphatase 133 H, C-Reactive Protein 22.4 H, Total Protein 7.4, Albumin 4.0, Globulin 3.4 H, Albumin/Globulin Ratio 1.2, Lipase 47 07/17/23 20:23: Urine Color Yellow, Urine Appearance Clear, Urine pH 5.5, Ur Specific [place] >= 1.030, Urine Protein Negative, Urine Glucose (UA) Negative, Urine Ketones Trace, Urine Blood Trace-i, Urine Nitrate Negative, Urine Bilirubin Negative, Urine Urobilinogen 0.2, Ur Leukocyte Esterase Trace, Urine RBC 3-5, Urine WBC 3-5, Ur Squamous Epith Cells 3-5, Calcium Oxalate Crystal 1+, Urine Bacteria 1+ 07/17/23 20:09 07/17/23 20:09 Orders (Tests/Meds): ED MEDICATIONS Discontinued Medications Generic Name Dose Route Start Last Admin Trade Name Freq PRN Reason Stop Dose Admin Acetaminophen 1,000 mg 07/17/23 19:40 07/17/23 20:19 Acetaminophen 500mg Tab PO 07/17/23 19:41 1,000 mg ONCE ONE Administration Lactated Ringer's 1,000 mls @ 999 mls/hr 07/17/23 19:40 07/17/23 20:19 Lactated Ringer's 1000 Ml Bag IV 07/17/23 20:40 999 mls/hr .Q1H1M ONE Administration Ondansetron HCl 4 mg 07/17/23 19:40 07/17/23 20:19 Ondansetron 4mg/2ml Vial IV 07/17/23 19:41 4 mg ONCE ONE Administration ORDERS Category Date Time Status C-Reactive Protein Stat Lab 07/17/23 20:09 Completed Complete Blood Count Auto Diff Stat Lab 07/17/23 20:09 Results Comprehensive Metabolic Panel Stat Lab 07/17/23 20:09 Completed Lipase Stat Lab 07/17/23 20:09 Completed Troponin I Q3H Lab 07/17/23 20:09 Received Urinalysis and Microscopic Stat Lab 07/17/23 20:23 Completed ECG Data Tracing #1: I reviewed this ECG and interpreted as documented below: Normal sinus rhythm with a ventricular rate of [address] changes concerning for ischemia. Normal axis and intervals. ECG initial impression date: 07/17/23 ECG initial impression time: 20:03 Medical Decision Narrative: In summary, this patient is a 22-year-old female presenting to the Emergency Department for evaluation of abdominal pain and pressure in the setting of . Differential diagnoses considered include but are not limited to placental abruption, ovarian torsion, ovarian cyst, appendicitis cystitis, gastritis, contractions. Ruling out the most morbid conditions drove assessment. On exam, the patient is well but anxious appearing. She has tenderness palpation of her uterus, especially at the fundus. She is also tender across her lower abdomen. Workup included CBC, CMP, CRP, urinalysis, lipase. Patient has leukocytosis and elevated CRP, which are nonspecific. Labs otherwise reassuring. heart tones were obtained and were slightly low in the 120s. She seems to be exquisitely tender over her uterus, so I called and had an indirect discussion with Dr. Mondragon with OBGYN. He advised she could be sent to triage for evaluation there. She was into OB triage. We are happy to accept the patient for reassessment if acute obstetric emergency is excluded and we need to search for other causes, such as appendicitis or other concern. Patient was transported to OB triage in stable condition. Critical Care Critical Care Time Critical Care Time: No
[2023-07-17] MEDS: ONDANSETRON 4MG/2ML VIAL 4 MG IV (20:19)
[2023-07-17] MEDS: ACETAMINOPHEN 500MG TAB 1000 MG PO (20:19)
[2023-07-17] MEDS: LACTATED RINGERS 1000ML 1,000 ML 999 ML IV (20:19)
[2023-07-17 20:21] LABS: Basophils # 0.1 K/mm3 (0-0.2); Basophils % 0.4 % (0.1-2.0); Eosinophils # 0.3 K/mm3 (0.0-0.4); Eosinophils % 1.6 % (0.1-12.0); Hematocrit 38.4 % (37.0-47.0); Hemoglobin 12.4 g/dL (12.2-16.2); Lymphocytes # 2.7 K/mm3 (0.7-4.5); Lymphocytes % 15.9 % (10-50); Mean Corpuscular HGB Conc 32.2 g/dL (31.8-35.4); Mean Corpuscular Hemoglobin 27.7 pg (27.0-31.2); Mean Corpuscular Volume 85.8 fl (81-99); Mean Platelet Volume 9.2 fl (7.4-10.4); Monocytes # 0.5 K/mm3 (0.1-1.0); Monocytes % 2.9 % (1.7-9.3); Neutrophils # 13.4 K/mm3 (1.8-7.8); Neutrophils % 79.3 % (37.0-80.0); Platelet Count 294 K/mm3 (142-424); Red Blood Count 4.47 M/mm3 (4.20-5.40); Red Cell Distribution Width 13.5 % (11.5-17.5); White Blood Count 16.9 K/mm3 (4.8-10.8)
[2023-07-17 20:27] LABS: MANUAL DIFFERENTIAL MANUAL DIFFERENTIAL (MANUAL DIFF)
[2023-07-17 20:27] LABS: Microscopic, Urine URINE MICROSCOPIC (MICROSCOPIC)
[2023-07-17 20:30] LABS: Appearance,Urine CLEAR (Clear); Blood, Urine TRACE-I (Negative); Color,Urine YELLOW (Yellow); Glucose,Urine (UA) Negative (Negative); Ketones,Urine TRACE (Negative); Leukocyte Esterase,Urine TRACE (Negative); Nitrate,Urine Negative (Negative); PH,Urine 5.5 (5.0-8.5); Protein,Urine Negative (Negative); Specific Gravity, Urine >= 1.030 (1.005-1.030); Urobilinogen,Urine 0.2 EU/dl (0.2)
[2023-07-17 20:30] LABS: Alanine Aminotransferase 14 U/L (12-78); Albumin/Globulin Ratio 1.2 (1.1-1.8); Alkaline Phosphatase 133 U/L (38-126); Anion Gap 11.6 mEq/L (5-15); Aspartate Amino Transferase 18 U/L (14-36); Bilirubin,Total 0.3 mg/dl (0.2-1.3); Blood Urea Nitrogen 6 mg/dl (7-17); Calcium 9.2 mg/dl (8.4-10.2); Carbon Dioxide 24 mmol/L (22.0-30.0); Chloride 105 mmol/L (98-107); Creatinine Clearance Estimated 223 mL/min (50-200); Estimated Glomerular Filt Rate 156 ml/min (>60); GFR (African American) 188 ML/MIN (>60); Globulin 3.4 g/dL (1.3-3.2); Glucose 96 mg/dl (74-100); Lipase 47 U/L (23-300); Potassium 3.6 mmoL/L (3.5-5.1); Sodium 137 mmol/L (136-145); Total Protein,Serum 7.4 g/dl (6.3-8.2)
[2023-07-17 20:46] LABS: Bilirubin,Urine Negative (Negative)
[2023-07-17 20:47] LABS: Bacteria,Urine 1+ /lpf; Calcium Oxalate Crystals,Urine 1+ /lpf
[2023-07-17 21:01] LABS: C-Reactive Protein 22.4 mg/L (0-4)
[2023-07-17 21:06] VITALS: BP 134/75; PULSE 91; RESP 16; TEMP 36.8; O2SAT 99
[2023-07-17 21:16] LABS: Lymphocytes % 17 % (10-50); Monocytes % 6 % (2-9); Neutrophils % 77 % (42-76); Platelet Estimate Normal; RBC Morphology Normal; Total Cells Counted 100
== END 2023-07-17 21:07 | disposition other institution (70) ==
PROVIDERS: Emergency Provider Emergency Medicine; PCP Obstetrics & Gynecology
DX: O26.892 Other specified pregnancy related conditions, second trimester (principal); R10.2 Pelvic and perineal pain; Z3A.20 20 weeks gestation of pregnancy; D72.829 Elevated white blood cell count, unspecified; M54.59 Other low back pain; R51.9 Headache, unspecified
CPT/HCPCS: 80053; 81001; 83690; 85007; 85025; 86140; 93005; 96361; 96374; 99284; J2405

== ENCOUNTER 2023-07-17 21:08 | Outpatient (CLI) | payer OTHER, SELFPAY ==
[2023-07-17] MEDS: NITROFURANTOIN 100MG CAPSULE 100 MG PO (21:46)
[2023-07-17 21:54] VITALS: BP 126/63; PULSE 88; RESP 18; TEMP 36.6; O2SAT 99; BMI 26.5
== END 2023-07-17 22:05 | disposition home or self-care (01) ==
LOC: OBOUT 21:09 → OB 21:10
PROVIDERS: Visit Provider Nurse Practitioner Obstetrics & Gynecology
DX: O26.892 Other specified pregnancy related conditions, second trimester (principal); Z3A.20 20 weeks gestation of pregnancy; R51.9 Headache, unspecified; R10.9 Unspecified abdominal pain; F41.9 Anxiety disorder, unspecified; H53.8 Other visual disturbances
CPT/HCPCS: G0463

== ENCOUNTER 2023-08-18 16:36 | Emergency (ER) | payer OTHER, SELFPAY ==
[2023-08-18 16:38] VITALS: BP 127/77; PULSE 89; RESP 16; TEMP 36.8; O2SAT 97; BMI 29.0
--- NOTE | 2023-08-18 16:48 | HMH.EDGENADL ---
Discharge Plan Disposition Patient Disposition: Home, Self-Care Prescriptions Prescriptions: No Action Vitamin 27 mg iron- 800 mcg tablet 1 tab PO DAILY Patient Comments: TAKE 1 TABLET BY MOUTH ONCE DAILY lidocaine 5 % adhesive patch,medicated 1 patch topical DAILY PRN (Reason: pain) Qty: 30 0RF Rx Instructions: leave on most painful area for up to 12 hrs cefdinir 300 mg capsule 300 mg PO BID 7 Days Qty: 14 0RF Referrals Follow up/Referrals: Debra Arvizu APRN [Primary Care Provider] - See instructions Clinical Impressions Clinical Impression: Second trimester , Constipation, Rectal pressure Discharge ED Provider: Cindy Rivera General Adult HPI General Stated complaint: having trouble with bowel movement Time Seen by Provider: 08/18/23 16:39 History of Present Illness HPI narrative: Is a 22-year-old female G2, P1 at 25 weeks x 5 trimester ultrasound presenting today with rectal pressure constipation abdominal pain and back pain. She states that this feels similar to the pain and discomfort she had when she went into labor with her last child. Denies any significant pain at the moment. But they state the symptoms are significant. She has been using suppositories at home has not had a bowel movement in 2 days but feels she is primarily constipated. Denies any loss of fluid vaginal bleeding she is still having movement. Denies any urinary symptoms including frequency dysuria urgency etc. Related Data Home Medications Medication Instructions Recorded Confirmed vits no.130-ferrous fum 1 tab PO DAILY 05/22/23 05/22/23 27 mg iron-folic acid 800 mcg tablet ( Vitamin) Previous Rx's Medication Instructions Recorded lidocaine 5 % topical patch 1 patch topical DAILY PRN pain #30 06/25/23 ea cefdinir 300 mg capsule 300 mg PO BID 7 days #14 caps 07/06/23 Allergies Allergy/AdvReac Type Severity Reaction Status Date / Time Penicillins Allergy Severe Anaphylaxis Verified 05/22/23 10:43 [facility] Disclaimer: The information contained in this section may have been updated after the patient was seen, as this information can be updated by other users. Surgical History H/O wisdom tooth extraction H/O adenoidectomy Hx of tonsillectomy Family History Other No significant family history Social History Smoking Status: Never smoker alcohol intake: never substance use type: denies use current occupational status: unemployed Travel in the last 8 weeks: None household members: family housing: house ROS Obtained: Yes All systems reviewed & no additional complaints except as documented Physical Exam General General appearance: alert and in no apparent distress Respiratory Respiratory exam: Present normal lung sounds bilaterally Cardiovascular Cardiovascular exam: Present regular rate and normal rhythm Abdominal Exam Abdominal exam: Present distention; Absent tenderness Neurological Exam Neurological exam: Present alert and oriented X3 Medical Decision Making Gregory Inquiry Pt receiving controlled substance: No Orders (Tests/Meds): ORDERS Category Date Time Status POCUS Point of Care (ER Only) Stat Exams 08/18/23 16:40 Ordered UA [Urinalysis and Microscopic] Stat Lab 08/18/23 16:46 Ordered Medical Decision Narrative: 22-year-old female with above history and physical. Differential includes constipation round ligament pain labor etc. I favor constipation most likely. Limited bedside ultrasound was unremarkable and normal and consistent with dates. She has no historical or physical exam findings consistent with surgical pathology or ongoing labor but will need to be monitored. Given the fact that she is over 20 weeks does have symptoms that could be associated with she will be sent to OB triage area. Urinalysis will be performed as well. She is cleared from an emergency standpoint and will be further monitored and managed by OB. Procedures Miscellaneous Procedure Procedure Performed: Limited OB ultrasound Indication: Abdominal pain Identified structures: [-Uterus -Left adnexa -Right adnexa -Pouch of Dre] Findings: Uterus: Definitive IUP consistent with dates normal amniotic fluid placenta is anterior no evidence of hemorrhaging positive movements FHR: 180 Right adnexa: No free fluid Left adnexa: No free fluid Cul de sac: No free fluid Impression: -IUP: Present - heart rate: 180 -Ectopic : Absent -Free fluid: Absent Images were saved to permanent archive The study was not technically adequate CPT Transabdominal: 11123-83 This study was performed by me, and I personally interpreted all images/videos. Based on my clinical judgement, these images were adequate and did not necessitate further imaging. Critical Care Critical Care Time Critical Care Time: No
[2023-08-18 17:02] LABS: Microscopic, Urine URINE MICROSCOPIC (MICROSCOPIC)
[2023-08-18 17:11] LABS: Appearance,Urine CLEAR (Clear); Bilirubin,Urine Negative (Negative); Blood, Urine TRACE-I (Negative); Color,Urine YELLOW (Yellow); Glucose,Urine (UA) Negative (Negative); Ketones,Urine Negative (Negative); Leukocyte Esterase,Urine Negative (Negative); Nitrate,Urine Negative (Negative); Protein,Urine Negative (Negative); Urobilinogen,Urine 0.2 EU/dl (0.2)
[2023-08-18 17:12] VITALS: BP 127/77; PULSE 86; RESP 18; TEMP 36.8; O2SAT 98
[2023-08-18 17:36] LABS: RBC,Urine Occasional #/hpf (0-3); Squamous Epithelial Cell,Urine Occasional #/hpf (0-5); WBC,Urine Occasional #/hpf (0-3)
== END 2023-08-18 17:14 | disposition home or self-care (01) ==
PROVIDERS: Emergency Provider Student in an Organized Health Care Education/Training Program; PCP Nurse Practitioner Family
DX: O26.892 Other specified pregnancy related conditions, second trimester (principal); K59.00 Constipation, unspecified; R19.8 Other specified symptoms and signs involving the digestive system and abdomen; Z3A.25 25 weeks gestation of pregnancy
CPT/HCPCS: 81001; 99284

== ENCOUNTER 2023-08-18 16:55 | Outpatient (CLI) | payer OTHER, SELFPAY ==
[2023-08-18 17:45] VITALS: BMI 29.0
[2023-08-18 18:06] LABS: Barbiturates Screen,Urine Negative ng/ml (<200)
[2023-08-18 18:07] LABS: Benzodiazepines Screen,Urine Negative ng/ml (<200)
[2023-08-18 18:08] LABS: Cannabinoid Screen,Urine Negative ng/ml (<50)
[2023-08-18 18:09] LABS: Cocaine Screen,Urine Negative ng/ml (<300)
[2023-08-18 18:10] LABS: Methadone Screen,Urine Negative ng/ml (<300); Opiate Screen,Urine Negative ng/ml (<300)
[2023-08-18 18:11] LABS: Phencyclidine Screen,Urine Negative ng/ml (<25)
[2023-08-18 18:15] LABS: Amphetamine/Metha Screen,Urine Negative ng/ml (<1000)
== END 2023-08-18 18:33 | disposition home or self-care (01) ==
LOC: OBOUT 16:59 → OB 17:01
PROVIDERS: PCP Nurse Practitioner Family; Visit Provider Nurse Practitioner Obstetrics & Gynecology
DX: O26.892 Other specified pregnancy related conditions, second trimester (principal); Z3A.25 25 weeks gestation of pregnancy; K59.09 Other constipation; R10.9 Unspecified abdominal pain; M54.50 Low back pain, unspecified
CPT/HCPCS: 80307; G0463

== ENCOUNTER 2023-10-06 20:46 | Emergency (ER) | payer OTHER, SELFPAY ==
[2023-10-06 20:50] VITALS: BP 130/75; PULSE 93; RESP 18; TEMP 36.8; O2SAT 98; BMI 31.4
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
--- NOTE | 2023-10-06 21:06 | ED_ITS ---
Discharge Plan Disposition Patient Disposition: Home, Self-Care Prescriptions Prescriptions: No Action Vitamin 27 mg iron- 800 mcg tablet 1 tab PO DAILY Patient Comments: TAKE 1 TABLET BY MOUTH ONCE DAILY lidocaine 5 % adhesive patch,medicated 1 patch topical DAILY PRN (Reason: pain) Qty: 30 0RF Rx Instructions: leave on most painful area for up to 12 hrs cefdinir 300 mg capsule 300 mg PO BID 7 Days Qty: 14 0RF Referrals Follow up/Referrals: Debra Arvizu APRN [Primary Care Provider] - See instructions Riog Andersen MD [Staff Physician] - See instructions Activity Restrictions/Add. Instructions Additional Instructions/Restrictions: No evidence of any life-threatening hemorrhage. Rectal exam you deferred. I recommend a follow-up with Dr. Park for an outpatient colonoscopy which will likely be performed after you deliver your child. An outpatient order for diarrhea PCR panel was placed please bring your stool sample back as informed by nursing staff. You may follow-up with results from that with your primary care doctor. Return with any large-volume bleeding or other concerns. Clinical Impressions Clinical Impression: Hematochezia, Intrauterine Instructions Patient Instructions: DI for Gastrointestinal Bleeding Discharge ED Provider: Cindy Rivera General Adult HPI General Chief complaint: GI Bleed Stated complaint: abd pain cramping, blood in stool Time Seen by Provider: 10/06/23 20:51 Mode of Arrival: Ambulatory Source of Information: Patient Limitations: No Limitations Description of Symptoms (Recalled from ER Triage Doc. by RN): Pt presents with concerns for rectal bleeding x 10 days. States blood is bright red with mucus. Was seen by [facility] ER, no hemorrhoid, given fluids and ulcer medication. Pt is currently 32 wks , denies any vaginal bledding. History of Present Illness HPI narrative: Patient is a G2, P1 at 32 weeks gestational age presenting today with blood in her stool. She states that she had diarrhea which began 10 days ago which is since formed and normal hard stools and has had some blood in her stool with some mucus. No fevers or chills no significant abdominal pain has been to [facility] emergency department several times for this had a rectal exam which they said was normal. No further workup or evaluation has been performed. She is not bleeding elsewhere is not on any blood thinners anticoagulation or antiplatelet agents. She does states she has a family history of maternal mother and grandmother who had colon cancer including 1 of whom had cancer at the age of 23. She has never had a colonoscopy before. She denies any bleeding elsewhere or any bruising elsewhere. She denies any significant abdominal pain vaginal bleeding significant vaginal discharge loss of fluid or contractions. Related Data Home Medications Medication Instructions Recorded Confirmed vits no.130-ferrous fum 1 tab PO DAILY 05/22/23 05/22/23 27 mg iron-folic acid 800 mcg tablet ( Vitamin) Previous Rx's Medication Instructions Recorded lidocaine 5 % topical patch 1 patch topical DAILY PRN pain #30 06/25/23 ea cefdinir 300 mg capsule 300 mg PO BID 7 days #14 caps 07/06/23 Allergies Allergy/AdvReac Type Severity Reaction Status Date / Time Penicillins Allergy Severe Anaphylaxis Verified 05/22/23 10:43 [facility] Disclaimer: The information contained in this section may have been updated after the patient was seen, as this information can be updated by other users. Surgical History H/O wisdom tooth extraction H/O adenoidectomy Hx of tonsillectomy Family History Other No significant family history Social History Smoking Status: Never smoker alcohol intake: never substance use type: denies use current occupational status: employed Travel in the last 8 weeks: None household members: family housing: house ROS Obtained: Yes All systems reviewed & no additional complaints except as doc umented Physical Exam General General appearance: alert Respiratory Respiratory exam: Present normal lung sounds bilaterally Cardiovascular Cardiovascular exam: Present regular rate Abdominal Exam Abdominal exam: Present soft and distention (Gravid); Absent tenderness Rectal Exam Rectal exam: Present deferred (Patient states she recently had a rectal exam and deferred at tonight) Neurological Exam Neurological exam: Present alert and oriented X3 Medical Decision Making Gregory Inquiry Pt receiving controlled substance: No Vital Signs: 10/06/23 20:50 Temperature 98.3 F Temperature Source Oral Pulse Rate [Left] 93 H Respiratory Rate 18 Blood Pressure [Right Arm] 130/75 Blood Pressure Mean [Right Arm] 93 Blood Pressure Source [Right Arm] Automatic Cuff Blood Pressure Position [Right Arm] Sitting 02 Sat by Pulse Oximetry 98 Oxygen Delivery Method Room Air Orders (Tests/Meds): ORDERS Category Date Time Status POCUS Point of Care (ER Only) Stat Exams 10/06/23 20:56 Ordered Medical Decision Narrative: Well-appearing 22-year-old female G2, P1 at 32 weeks gestational age presents with blood in her stool very low quantity she showed me a picture. Look to be less than a teaspoon. She has had some normal intermittent bowel movements that have been hard it is possible she has some constipation that is causing some rectal tearing. She deferred rectal exam as she recently had a rectal exam at [facility]. She has no evidence of tachycardia or hypotension or significant bleeding from historical standpoint. Also possible is that she has invasive bacterial or viral species that could be causing the symptoms and inflammatory changes thus bleeding. No emergent indication for diarrhea PCR panel but I did give her an outpatient order to follow-up with her primary care doctor and to bring her stool sample back to the hospital.. Bedside ultrasound was performed which demonstrated a living IUP consistent with dates. My only major concern is the fact that she has history of family colon cancer at a very young age and I recommend that she get a colonoscopy likely after she delivers her baby. Referral has been made. Procedures Miscellaneous Procedure Procedure Performed: Limited OB ultrasound Indication: Rectal bleeding in the setting of Identified structures: [-Uterus -Left adnexa -Right adnexa -Pouch of Dre] Findings: Definitive IUP consistent with dates heart rate of 173 anterior placenta normal amniotic fluid positive movements Right adnexa: No free fluid Left adnexa: No free fluid Cul de sac: No free fluid Impression: Single living IUP consistent with dates Images were saved to permanent archive The study was technically adequate CPT Transabdominal: 49267-45 This study was performed by me, and I personally interpreted all images/videos. Based on my clinical judgement, these images were adequate and did not necessitate further imaging. Critical Care Critical Care Time Critical Care Time: No
[2023-10-06 21:10] VITALS: BP 130/75; PULSE 93; RESP 18; TEMP 36.8; O2SAT 98
== END 2023-10-06 21:10 | disposition home or self-care (01) ==
PROVIDERS: Emergency Provider Student in an Organized Health Care Education/Training Program; PCP Nurse Practitioner Family
DX: O26.893 Other specified pregnancy related conditions, third trimester (principal); K92.1 Melena; Z3A.32 32 weeks gestation of pregnancy
CPT/HCPCS: 99284

== ENCOUNTER 2023-10-08 17:21 | Emergency (ER) | payer OTHER, SELFPAY ==
[2023-10-08 18:30] VITALS: BP 152/72; PULSE 103; RESP 18; TEMP 36.7; O2SAT 99; BMI 31.4
--- NOTE | 2023-10-08 18:42 | EXP.UTC ---
Discharge Plan Disposition Patient Disposition: Home, Self-Care Condition: Good Prescriptions Prescriptions: No Action Vitamin 27 mg iron- 800 mcg tablet 1 tab PO DAILY Patient Comments: TAKE 1 TABLET BY MOUTH ONCE DAILY lidocaine 5 % adhesive patch,medicated 1 patch topical DAILY PRN (Reason: pain) Qty: 30 0RF Rx Instructions: leave on most painful area for up to 12 hrs famotidine 20 mg tablet See Rx Instructions .ROUTE .COMPLEX Patient Comments: TAKE 1 TABLET BY MOUTH EVERY 12 HOURS FOR 10 DAYS Rx Instructions: TAKE 1 TABLET BY MOUTH EVERY 12 HOURS FOR 10 DAYS nitrofurantoin monohyd/m-cryst 100 mg capsule See Rx Instructions .ROUTE .COMPLEX Patient Comments: TAKE 1 CAPSULE BY MOUTH EVERY 12 HOURS FOR 7 DAYS Rx Instructions: TAKE 1 CAPSULE BY MOUTH EVERY 12 HOURS FOR 7 DAYS Referrals Follow up/Referrals: Debra Arvizu APRN [Primary Care Provider] - See instructions Activity Restrictions/Add. Instructions Additional Instructions/Restrictions: Drink plenty of fluids. Take tylenol for pain or fever. The throat culture will take 3 days to complete, please f/u with your primary care physician regarding this. Follow up with your regular doctor. GO TO THE ER FOR ANY WORSENING SYMPTOMS Clinical Impressions Clinical Impression: Exposure to methicillin resistant Staphylococcus aureus Instructions Patient Instructions: DI for Staph Infection, Staph Infection Discharge ED Provider: Poncho Beckford [facility] General Stated complaint: Exposed to staff infection strep Time Seen by Provider: 10/08/23 18:41 Related Data Home Medications Medication Instructions Recorded Confirmed vits no.130-ferrous fum 1 tab PO DAILY 05/22/23 10/08/23 27 mg iron-folic acid 800 mcg tablet ( Vitamin) famotidine 20 mg tablet See Rx Instructions .Route .COMPLEX 10/08/23 10/08/23 nitrofurantoin See Rx Instructions .Route .COMPLEX 10/08/23 10/08/23 monohydrate/macrocrystals 100 mg capsule Previous Rx's Medication Instructions Recorded lidocaine 5 % topical patch 1 patch topical DAILY PRN pain #30 06/25/23 ea Allergies Allergy/AdvReac Type Severity Reaction Status Date / Time Penicillins Allergy Severe Anaphylaxis Verified 10/08/23 18:58 [facility] Disclaimer: The information contained in this section may have been updated after the patient was seen, as this information can be updated by other users. Surgical History H/O wisdom tooth extraction H/O adenoidectomy Hx of tonsillectomy Family History Other No significant family history Social History Smoking Status: Never smoker alcohol intake: never substance use type: denies use current occupational status: employed Travel in the last 8 weeks: None household members: family housing: house ROS Obtained: Yes All systems reviewed & no additional complaints except as documented Constitutional Constitutional: Denies chills and Denies fever(s) Eyes Eyes: Denies eye discharge ENT Ears, Nose, Mouth, and Throat: Denies dizziness, Denies otalgia and Denies sore throat Cardiovascular Cardiovascular: Denies chest pain Respiratory Respiratory: Denies shortness of breath, Denies chest congestion, Denies cough, Denies stridor and Denies wheezing Gastrointestinal Gastrointestingal: Denies nausea or vomiting Musculoskeletal Musculoskeletal: Reports system reviewed and no additional complaints, except as documented and Denies arthralgias Integumentary/Breasts Skin/Breast: Denies rash Neurologic Neurologic: Denies dizziness and Denies paresthesias Allergic/Immunologic Allergic/Immunologic: Denies wheezing Physical Exam General General appearance: alert and in no apparent distress Head Head exam: atraumatic, normocephalic and normal inspection Eye Eye exam: Present normal appearance, PERRL and EOMI ENT ENT exam: Present normal exam, normal oropharynx, mucous membranes moist, TM's normal bilaterally and normal external ear exam Neck Neck exam: Present normal inspection, full ROM and trachea midline; Absent meningismus or lymphadenopathy Chest Chest inspection: Present normal inspection and symmetric chest wall rise; Absent tenderness Respiratory Respiratory exam: Present normal lung sounds bilaterally; Absent respiratory distress Cardiovascular Cardiovascular exam: Present regular rate and normal rhythm; Absent JVD Abdominal Exam Abdominal exam: Present soft and normal bowel sounds; Absent distention, tenderness or guarding Extremities Exam Extremities exam: Present normal inspection, full ROM and normal capillary refill; Absent calf tenderness Back Exam Back exam: Present normal inspection; Absent tenderness Neurological Exam Neurological exam: Present alert and oriented X3 Psychiatric Psychiatric exam: Present normal affect and normal mood Skin Skin exam: Present warm, dry, intact and normal color Lymphatic Lymphatic Findings: no adenopathy Medical Decision Making Medical Records Medical records reviewed: No I reviewed the patient's medical records. Gregory Inquiry Pt receiving controlled substance: No
--- NOTE | 2023-10-08 19:21 | PC.NURSE ---
Sent throat culture to lab via tube system
[2023-10-08 19:23] VITALS: BP 152/72; PULSE 103; RESP 18; TEMP 36.7; O2SAT 99
== END 2023-10-08 19:23 | disposition home or self-care (01) ==
PROVIDERS: Emergency Provider Nurse Practitioner Family; PCP Nurse Practitioner Family
DX: Z20.818 Contact with and (suspected) exposure to other bacterial communicable diseases (principal)
CPT/HCPCS: 87070; 87077; 99212; G0463

== ENCOUNTER 2023-11-13 03:57 | Emergency (ER) | payer OTHER, SELFPAY ==
--- NOTE | 2023-11-13 04:00 | HMH.EDGENADL ---
Discharge Plan Disposition Patient Disposition: Home, Self-Care Prescriptions Prescriptions: No Action Vitamin 27 mg iron- 800 mcg tablet 1 tab PO DAILY Patient Comments: TAKE 1 TABLET BY MOUTH ONCE DAILY lidocaine 5 % adhesive patch,medicated 1 patch topical DAILY PRN (Reason: pain) Qty: 30 0RF Rx Instructions: leave on most painful area for up to 12 hrs famotidine 20 mg tablet See Rx Instructions .ROUTE .COMPLEX Patient Comments: TAKE 1 TABLET BY MOUTH EVERY 12 HOURS FOR 10 DAYS Rx Instructions: TAKE 1 TABLET BY MOUTH EVERY 12 HOURS FOR 10 DAYS nitrofurantoin monohyd/m-cryst 100 mg capsule See Rx Instructions .ROUTE .COMPLEX Patient Comments: TAKE 1 CAPSULE BY MOUTH EVERY 12 HOURS FOR 7 DAYS Rx Instructions: TAKE 1 CAPSULE BY MOUTH EVERY 12 HOURS FOR 7 DAYS Referrals Follow up/Referrals: Debra Arvizu APRN [Primary Care Provider] - See instructions Activity Restrictions/Add. Instructions Additional Instructions/Restrictions: Please follow-up with your [employer]. Please monitor for fever, foul-smelling vaginal discharge, tachycardia, or worsening bleeding. Please return to the emergency department if you develop any new or worsening symptoms or become concerned for your health. Clinical Impressions Clinical Impression: Lower abdominal pain bleeding Qualifiers: hemorrhage type: delayed hemorrhage Qualified Code(s): O72.2 - Delayed and secondary hemorrhage Instructions Patient Instructions: DI for Acute Abdominal Pain Discharge ED Provider: Chito Hebert General Adult HPI General Chief complaint: Abdominal Pain Stated complaint: abd pain, 4 days , vomiting Time Seen by Provider: 11/13/23 04:00 History of Present Illness HPI narrative: 23-year-old female, G2, P2, 3 days from a vaginal delivery at 36 weeks without complication presents with lower abdominal pain. She has history of constipation. Reports her last bowel movement was this morning and was normal for her. She denies any urinary symptoms. She reports that she is having a normal amount of vaginal discharge, not foul-smelling, just scant and bloody. Denies any fevers at home. She reports the pain started very sharply and suddenly. She took ibuprofen at home without improvement. Related Data Home Medications Medication Instructions Recorded Confirmed vits no.130-ferrous fum 1 tab PO DAILY 05/22/23 10/08/23 27 mg iron-folic acid 800 mcg tablet ( Vitamin) famotidine 20 mg tablet See Rx Instructions .Route .COMPLEX 10/08/23 10/08/23 nitrofurantoin See Rx Instructions .Route .COMPLEX 10/08/23 10/08/23 monohydrate/macrocrystals 100 mg capsule Previous Rx's Medication Instructions Recorded lidocaine 5 % topical patch 1 patch topical DAILY PRN pain #30 06/25/23 ea Allergies Allergy/AdvReac Type Severity Reaction Status Date / Time Penicillins Allergy Severe Anaphylaxis Verified 10/08/23 18:58 [facility] Disclaimer: The information contained in this section may have been updated after the patient was seen, as this information can be updated by other users. Surgical History H/O wisdom tooth extraction H/O adenoidectomy Hx of tonsillectomy Family History Other No significant family history Social History Smoking Status: Never smoker alcohol intake: never substance use type: denies use current occupational status: employed Travel in the last 8 weeks: None household members: family housing: house ROS Obtained: Yes All systems reviewed & no additional complaints except as documented Physical Exam General General appearance: alert and anxious Head Head exam: atraumatic and normocephalic Eye Eye exam: Present normal appearance, PERRL and EOMI ENT ENT exam: Present normal oropharynx and normal external ear exam Neck Neck exam: Present normal inspection and full ROM Chest Chest inspection: Present normal inspection and symmetric chest wall rise; Absent tenderness Respiratory Respiratory exam: Present normal lung sounds bilaterally; Absent respiratory distress Cardiovascular Cardiovascular exam: Present regular rate and normal rhythm Abdominal Exam Abdominal exam: Present soft and tenderness (Suprapubic); Absent distention or guarding Extremities Exam Extremities exam: Present normal inspection; Absent edema or joint swelling Back Exam Back exam: Present normal inspection; Absent tenderness Neurological Exam Neurological exam: Present alert and oriented X3; Absent motor sensory deficit Psychiatric Psychiatric exam: Present normal affect and normal mood Skin Skin exam: Present warm, dry and normal color Lymphatic Lymphatic Findings: no adenopathy Medical Decision Making Medical Records Medical records reviewed: Yes I reviewed the patient's medical records. Gregory Inquiry Pt receiving controlled substance: No Gregory was queried for this patient: No Vital Signs: 11/13/23 04:07 11/13/23 05:27 11/13/23 05:30 Temperature 97.7 F Temperature Source Oral Pulse Rate 63 59 L Pulse Rate [Left Radial] 85 Respiratory Rate 22 Blood Pressure 107/69 L 112/66 Blood Pressure [Right Arm] 143/92 H Blood Pressure Mean [Right Arm] 109 02 Sat by Pulse Oximetry 98 97 98 Oxygen Delivery Method Room Air Lab Data Lab results reviewed: Yes I reviewed the patient's lab results. Lab Results 11/13/23 04:10: Urine Color Yellow, Urine Appearance Slightly cloudy, Urine pH 6.0, Ur Specific [place] 1.015, Urine Protein Negative, Urine Glucose (UA) Negative, Urine Ketones Negative, Urine Blood 3+, Urine Nitrate Negative, Urine Bilirubin Negative, Urine Urobilinogen 0.2, Ur Leukocyte Esterase 2+ A, Urine RBC 10-20, Urine WBC 5-10, Ur Squamous Epith Cells 3-5, Urine Bacteria Trace 11/13/23 04:21: WBC 13.0 H, RBC 4.40, Hgb 11.3 L, Hct 34.6 L, MCV 78.6 L, MCH 25.8 L, MCHC 32.8, RDW 15.1, Plt Count 343, MPV 9.4, Neut % (Auto) 55.0, Lymph % (Auto) 36.5, [place] % (Auto) 4.0, Eos % (Auto) 3.9, Baso % (Auto) 0.7, Neut # (Auto) 7.2, Lymph # (Auto) 4.8 H, Curry # (Auto) 0.5, Eos # (Auto) 0.5 H, Baso # (Auto) 0.1, Sodium 139, Potassium 4.1, Chloride 106, Carbon Dioxide 26, Anion Gap 11.1, BUN 17, Creatinine 0.60, Estimated Creat Clear 190, Estimated GFR 125, Est GFR ( Amer) 151, Glucose 93, Calcium 9.4, Total Bilirubin 0.2, AST 21, ALT 20, Alkaline Phosphatase 157 H, Total Protein 6.7, Albumin 3.3 L, Globulin 3.4 H, Albumin/Globulin Ratio 1.0 L 11/13/23 04:21 11/13/23 04:21 Orders (Tests/Meds): ED MEDICATIONS Generic Name Dose Route Start Last Admin Trade Name Freq PRN Reason Stop Dose Admin Sodium Chloride 10 ml 11/13/23 04:46 11/13/23 04:47 Sodium Chloride 0.9% 10ml Syr (Rad Only) IV 12/13/23 04:45 10 ml NEEDED PRN Administration Maintain IV Site Discontinued Medications Generic Name Dose Route Start Last Admin Trade Name Ambar PRN Reason Stop Dose Admin Acetaminophen 1,000 mg 11/13/23 04:07 11/13/23 04:19 Acetaminophen 500mg Tab PO 11/13/23 04:08 1,000 mg ONCE ONE Administration Iopamidol 75 ml 11/13/23 04:46 11/13/23 04:47 Iopamidol-370 (76%);100ml Bottle IV 11/13/23 04:47 75 ml ONCE ONE Administration Morphine Sulfate 4 mg 11/13/23 04:07 11/13/23 04:20 Morphine 4mg/Ml Syringe IV 11/13/23 04:08 4 mg ONCE ONE Administration Ondansetron HCl 4 mg 11/13/23 04:07 11/13/23 04:19 Ondansetron 4mg/2ml Vial IV 11/13/23 04:08 4 mg ONCE ONE Administration ORDERS Category Date Time Status CT abdomen pelvis w con Stat Cat Scan 11/13/23 04:08 Completed CBC w/Auto Diff [Complete Blood Count Auto Diff] Stat Lab 11/13/23 04:21 Completed CMP [Comprehensive Metabolic Panel] Stat Lab 11/13/23 04:21 Completed UA [Urinalysis and Microscopic] Stat Lab 11/13/23 04:10 Completed Urine Culture Stat Micro 11/13/23 04:10 Received Medical Decision Narrative: 23-year-old female, G2, P2, 3 days from reportedly uncomplicated vaginal delivery at [facility] presents with sudden onset lower abdominal pain. History was obtained interactive discussion with patient. On arrival, patient is [afebrile, hemodynamically stable, satting appropriately, alert, oriented x4, GCS 15], moving all extremities spontaneously. Full physical exam performed and significant for suprapubic tenderness. Differential includes but is not limited to constipation, cystitis, appendicitis, ovarian pathology, endometritis. Patient has no fever, her pain started suddenly, she has had no foul smelling lochia to suggest endometritis. Patient was given Tylenol and morphine for symptomatic management and correction of underlying abnormalities. Workup initiated including CBC CMP UA CT abdomen and pelvis with IV contrast.. On re-evaluation, patient [remains afebrile, HD stable.] Reports significant symptomatic improvement. During a trip to the bathroom, she reports that she had a larger amount of blood out than previously, approximately a tablespoon to 1/4 cup. Laboratory workup independently interpreted by me and significant for mild leukocytosis with white count of 13, normal electrolytes and renal function, urine appears to be a unclean catch given 10-20 RBCs and 3-5 squames.. Imaging independently interpreted by me and significant for size uterus with likely hemorrhage in the lower uterine segment and vagina. No appendicitis or other acute pathology.. See radiology read for full review of final results. I discussed the case with the on-call [employer]. Given she has had no fevers, has had unremarkable vaginal discharge to this point, had sudden onset of pain, it is felt that she is unlikely to have endometritis at this time. She has normal vital signs, stable hemoglobin, no large-volume vaginal bleeding to suggest significant hemorrhage. Transvaginal ultrasound was considered, but deemed unnecessary due to CT findings, hemodynamic stability, physical exam. Treatment of urine was considered, but deemed unnecessary given alternative diagnosis, likely poor catch, no urinary symptoms. Given patient history, exam and workup, patient's presentation most likely represents sudden onset lower abdominal pain secondary to self-limiting small-volume delayed hemorrhage. I had an extensive interaction discussion with patient regarding her symptoms and workup. She was discharged in stable condition with instructions to follow-up with her [employer] and monitor for signs of endometritis and hemorrhage.. Procedures Risk/Benefits of Procedure(s) Were Explained: Yes Critical Care Critical Care Time Critical Care Time: No
[2023-11-13 04:07] VITALS: BP 143/92; PULSE 85; RESP 22; TEMP 36.5; O2SAT 98; BMI 29.9
--- NOTE | 2023-11-13 04:08 | CT_ITS ---
PROCEDURE INFORMATION: Exam: CT Abdomen And Pelvis With Contrast Exam date and time: 11/13/2023 4:41 AM Age: 23 years old Clinical indication: Abdominal pain; Additional info: Severe suprapubic pain, 3 days TECHNIQUE: Imaging protocol: Computed tomography of the abdomen and pelvis with contrast. Radiation optimization: All CT scans at this facility use at least one of these dose optimization techniques: automated exposure control; mA and/or kV adjustment per patient size (includes targeted exams where dose is matched to clinical indication); or iterative reconstruction. Contrast material: ISOVUE; Contrast volume: 75 ml; Contrast route: IV; COMPARISON: No relevant prior studies available. FINDINGS: Liver: Normal. No mass. Gallbladder and biliary ducts: Normal. No calcified stones. No ductal dilation. Pancreas: Normal. No ductal dilation. Spleen: Normal. No splenomegaly. Adrenal glands: Normal. No mass. Kidneys and ureters: Normal. No hydronephrosis. Stomach and bowel: Unremarkable. No obstruction. No mucosal thickening. Appendix: No evidence of appendicitis. Intraperitoneal space: Unremarkable. No free air. No significant fluid collection. Vasculature: Unremarkable. No abdominal aortic aneurysm. Lymph nodes: Unremarkable. No enlarged lymph nodes. Urinary bladder: Unremarkable as visualized. Reproductive: size uterus is identified. The endometrium is distended. Probable hemorrhage is seen in the lower uterine segment and vagina. No acute process otherwise identified. Bones/joints: Unremarkable. No acute fracture. Soft tissues: Unremarkable. IMPRESSION: sized uterus is identified. The endometrium is distended. Probable hemorrhage is seen in the lower uterine segment and vagina. No acute process otherwise identified.
--- NOTE | 2023-11-13 04:10 | PC.NURSE ---
rounded on patient, no needs at this time
[2023-11-13 04:15] LABS: Bilirubin,Urine Negative (Negative); Blood, Urine 3+ (Negative); Color,Urine YELLOW (Yellow); Glucose,Urine (UA) Negative (Negative); Ketones,Urine Negative (Negative); Leukocyte Esterase,Urine 2+ (Negative); Microscopic, Urine URINE MICROSCOPIC (MICROSCOPIC); Nitrate,Urine Negative (Negative); Protein,Urine Negative (Negative); Specific Gravity, Urine 1.015 (1.005-1.030); Urobilinogen,Urine 0.2 EU/dl (0.2)
[2023-11-13 04:16] LABS: Appearance,Urine Slightly Cloudy (Clear)
[2023-11-13] MEDS: ACETAMINOPHEN 500MG TAB 1000 MG PO (04:19)
[2023-11-13] MEDS: ONDANSETRON 4MG/2ML VIAL 4 MG IV (04:19)
[2023-11-13] MEDS: MORPHINE 4MG/ML SYRINGE 4 MG IV (04:20)
[2023-11-13 04:28] LABS: Basophils # 0.1 K/mm3 (0-0.2); Basophils % 0.7 % (0.1-2.0); Eosinophils # 0.5 K/mm3 (0.0-0.4); Eosinophils % 3.9 % (0.1-12.0); Hematocrit 34.6 % (37.0-47.0); Hemoglobin 11.3 g/dL (12.2-16.2); Lymphocytes # 4.8 K/mm3 (0.7-4.5); Lymphocytes % 36.5 % (10-50); Mean Corpuscular HGB Conc 32.8 g/dL (31.8-35.4); Mean Corpuscular Hemoglobin 25.8 pg (27.0-31.2); Mean Corpuscular Volume 78.6 fl (81-99); Mean Platelet Volume 9.4 fl (7.4-10.4); Monocytes # 0.5 K/mm3 (0.1-1.0); Neutrophils # 7.2 K/mm3 (1.8-7.8); Platelet Count 343 K/mm3 (142-424); Red Cell Distribution Width 15.1 % (11.5-17.5)
[2023-11-13 04:29] LABS: Bacteria,Urine Trace /lpf
[2023-11-13 04:36] LABS: Alanine Aminotransferase 20 U/L (12-78); Albumin Level 3.3 g/dl (3.5-5.0); Alkaline Phosphatase 157 U/L (38-126); Anion Gap 11.1 mEq/L (5-15); Aspartate Amino Transferase 21 U/L (14-36); Bilirubin,Total 0.2 mg/dl (0.2-1.3); Blood Urea Nitrogen 17 mg/dl (7-17); Calcium 9.4 mg/dl (8.4-10.2); Carbon Dioxide 26 mmol/L (22.0-30.0); Chloride 106 mmol/L (98-107); Creatinine Clearance Estimated 190 mL/min (50-200); Estimated Glomerular Filt Rate 125 ml/min (>60); GFR (African American) 151 ML/MIN (>60); Globulin 3.4 g/dL (1.3-3.2); Glucose 93 mg/dl (74-100); Potassium 4.1 mmoL/L (3.5-5.1); Sodium 139 mmol/L (136-145); Total Protein,Serum 6.7 g/dl (6.3-8.2)
[2023-11-13] MEDS: SODIUM CHLORIDE 0.9% 10ML SYR (RAD ONLY) 10 ML IV (04:47)
[2023-11-13] MEDS: IOPAMIDOL-370 (76%);100ML BOTTLE 75 ML IV (04:47)
[2023-11-13 05:27] VITALS: BP 107/69; PULSE 63; O2SAT 97
[2023-11-13 05:30] VITALS: BP 112/66; PULSE 59; O2SAT 98
--- NOTE | 2023-11-13 06:04 | PC.NURSE ---
rounded on patient at this time, voiced no needs.
--- NOTE | 2023-11-13 06:24 | PC.NURSE ---
Dr. Mondragon paged for ED doctor, registration is having an issue calling out to him
--- NOTE | 2023-11-13 06:28 | PC.NURSE ---
charge nurse contacted OB and OB staff will reach out to Dr. Mondragon, Dr. Mondragon on phone with ED doctor at this time
[2023-11-13 06:34] VITALS: BP 106/67; PULSE 74; RESP 18; TEMP 37.1; O2SAT 100
== END 2023-11-13 06:38 | disposition home or self-care (01) ==
PROVIDERS: Emergency Provider Emergency Medicine; PCP Nurse Practitioner Family
DX: O72.1 Other immediate postpartum hemorrhage (principal); R10.30 Lower abdominal pain, unspecified
CPT/HCPCS: 74177; 80053; 81001; 85025; 87086; 96374; 96375; 99285; J2270; J2405; Q9967

== ENCOUNTER 2023-12-11 21:46 | Emergency (ER) | payer OTHER, SELFPAY ==
[2023-12-11 21:47] VITALS: BP 119/60; PULSE 81; RESP 18; TEMP 36.4; O2SAT 98; BMI 27.4
--- NOTE | 2023-12-11 23:22 | ED_ITS ---
Discharge Plan Disposition Patient Disposition: Home, Self-Care Condition: Good Prescriptions Prescriptions: No Action Vitamin 27 mg iron- 800 mcg tablet 1 tab PO DAILY Patient Comments: TAKE 1 TABLET BY MOUTH ONCE DAILY lidocaine 5 % adhesive patch,medicated 1 patch topical DAILY PRN (Reason: pain) Qty: 30 0RF Rx Instructions: leave on most painful area for up to 12 hrs famotidine 20 mg tablet See Rx Instructions .ROUTE .COMPLEX Patient Comments: TAKE 1 TABLET BY MOUTH EVERY 12 HOURS FOR 10 DAYS Rx Instructions: TAKE 1 TABLET BY MOUTH EVERY 12 HOURS FOR 10 DAYS nitrofurantoin monohyd/m-cryst 100 mg capsule See Rx Instructions .ROUTE .COMPLEX Patient Comments: TAKE 1 CAPSULE BY MOUTH EVERY 12 HOURS FOR 7 DAYS Rx Instructions: TAKE 1 CAPSULE BY MOUTH EVERY 12 HOURS FOR 7 DAYS Referrals Follow up/Referrals: Provider,Referral, [Primary Care Provider] - See instructions Activity Restrictions/Add. Instructions Additional Instructions/Restrictions: Please follow-up with your primary care provider. Please return to the emergency department if you develop any new or worsening symptoms or become concerned for your health. Clinical Impressions Clinical Impression: Acute eruption of skin Print Language Print Language: Polish Discharge ED Provider: Chito Hebert General Adult HPI General Chief complaint: Skin/Abscess/Foreign Body Stated complaint: rash all over Time Seen by Provider: 12/11/23 23:22 History of Present Illness HPI narrative: 23-year-old female without significant past medical history presents for rash . She reports that she has had some bumps pop up over the last couple of days on her extremities. They are itchy. She reports she is concerned it could be poison freedom and she does not want to give it to her small child. She reports that she has been outside and has not been going to the nance. Denies any fever or other symptoms, denies any new medications. Related Data Home Medications ?Medication ?Instructions ?Recorded ?Confirmed vits no.130-ferrous fum 1 tab PO DAILY 05/22/23 10/08/23 27 mg iron-folic acid 800 mcg tablet ( Vitamin) famotidine 20 mg tablet See Rx Instructions .Route .COMPLEX 10/08/23 10/08/23 nitrofurantoin See Rx Instructions .Route .COMPLEX 10/08/23 10/08/23 monohydrate/macrocrystals 100 mg capsule Previous Rx's ?Medication ?Instructions ?Recorded lidocaine 5 % topical patch 1 patch topical DAILY PRN pain #30 06/25/23 ea Allergies Allergy/AdvReac Type Severity Reaction Status Date / Time Penicillins Allergy Severe Anaphylaxis Verified 10/08/23 18:58 [facility] Disclaimer: The information contained in this section may have been updated after the pat ient was seen, as this information can be updated by other users. Surgical History H/O wisdom tooth extraction H/O adenoidectomy Hx of tonsillectomy Family History Other No significant family history Social History Smoking Status: Never smoker alcohol intake: never substance use type: denies use current occupational status: employed Travel in the last 8 weeks: None household members: family housing: house ROS Obtained: Yes All systems reviewed & no additional complaints except as documented Physical Exam General General appearance: alert and in no apparent distress Head Head exam: atraumatic and normocephalic Eye Eye exam: Present normal appearance, PERRL and EOMI ENT ENT exam: Present normal oropharynx and normal external ear exam Neck Neck exam: Present normal inspection and full ROM Chest Chest inspection: Present normal inspection and symmetric chest wall rise; Absent tenderness Respiratory Respiratory exam: Present normal lung sounds bilaterally; Absent respiratory distress Cardiovascular Cardiovascular exam: Present regular rate and normal rhythm Abdominal Exam Abdominal exam: Present soft; Absent distention, tenderness or guarding Extremities Exam Extremities exam: Present normal inspection; Absent edema or joint swelling Back Exam Back exam: Present normal inspection; Absent tenderness Neurological Exam Neurological exam: Present alert and oriented X3; Absent motor sensory deficit Psychiatric Psychiatric exam: Present normal affect and normal mood Skin Skin exam: Present other (Scattered erythematous papules that appear consistent with bug bites) Lymphatic Lymphatic Findings: no adenopathy Medical Decision Making Medical Records Medical records reviewed: Yes I reviewed the patient's medical records. Gregory Inquiry Pt receiving controlled substance: No Gregory was queried for this patient: No Vital Signs: 12/11/23 21:47 12/11/23 23:45 Temperature 97.6 F 98.8 F Temperature Source Oral Oral Pulse Rate 80 Pulse Rate [Right Radial] 81 Respiratory Rate 18 18 Blood Pressure 124/86 Blood Pressure [Right Arm] 119/60 Blood Pressure Mean [Right Arm] 79 Blood Pressure Source Automatic Cuff Blood Pressure Source [Right Arm] Automatic Cuff Blood Pressure Position Sitting Blood Pressure Position [Right Arm] Sitting 02 Sat by Pulse Oximetry 98 Oxygen Delivery Method Room Air Lab Data Lab results reviewed: Yes I reviewed the patient's lab results. Medical Decision Narrative: 23-year-old female without significant past medical history presents with red itchy spots that developed over the last couple of days, she was to make sure it is not poison freedom. Differential diagnosis includes but limited to contact dermatitis, allergic reaction, bug bites, abscess, cellulitis, autoimmune condition. Physical exam is most consistent with bug bites, such as mosquito bites. Does not look like bedbugs. No evidence of other emergent pathology at this time. These findings were discussed with patient and she was discharged in stable condition. Procedures Risk/Benefits of Procedure(s) Were Explained: Yes Critical Care Critical Care Time Critical Care Time: No
[2023-12-11 23:45] VITALS: BP 124/86; PULSE 80; RESP 18; TEMP 37.1; O2SAT 97
== END 2023-12-11 23:49 | disposition home or self-care (01) ==
LOC: ER 23:51
PROVIDERS: Emergency Provider Emergency Medicine
DX: R21 Rash and other nonspecific skin eruption (principal)
CPT/HCPCS: 99282

== ENCOUNTER 2023-12-27 22:26 | Emergency (ER) | payer OTHER, SELFPAY ==
[2023-12-27 22:28] VITALS: BP 136/74; PULSE 81; RESP 16; TEMP 36.8; O2SAT 99; BMI 29.9
--- NOTE | 2023-12-27 23:04 | ED_ITS ---
Discharge Plan Disposition Patient Disposition: Home, Self-Care Prescriptions Prescriptions: No Action Vitamin 27 mg iron- 800 mcg tablet 1 tab PO DAILY Patient Comments: TAKE 1 TABLET BY MOUTH ONCE DAILY lidocaine 5 % adhesive patch,medicated 1 patch topical DAILY PRN (Reason: pain) Qty: 30 0RF Rx Instructions: leave on most painful area for up to 12 hrs famotidine 20 mg tablet See Rx Instructions .ROUTE .COMPLEX Patient Comments: TAKE 1 TABLET BY MOUTH EVERY 12 HOURS FOR 10 DAYS Rx Instructions: TAKE 1 TABLET BY MOUTH EVERY 12 HOURS FOR 10 DAYS nitrofurantoin monohyd/m-cryst 100 mg capsule See Rx Instructions .ROUTE .COMPLEX Patient Comments: TAKE 1 CAPSULE BY MOUTH EVERY 12 HOURS FOR 7 DAYS Rx Instructions: TAKE 1 CAPSULE BY MOUTH EVERY 12 HOURS FOR 7 DAYS Referrals Follow up/Referrals: Shameka Quiñones APRN [Primary Care Provider] - See instructions Activity Restrictions/Add. Instructions Additional Instructions/Restrictions: Please follow-up with your primary care provider and your [facility]NAGER [facility]. Please return to the emergency department if you develop any new or worsening symptoms or become concerned for your health. Please take Tylenol ibuprofen and your previously prescribed opiates as needed for pain. Clinical Impressions Clinical Impression: Postoperative abdominal pain Print Language Print Language: Indonesian Discharge ED Provider: Chito Hebert Adult HPI General Chief complaint: PAIN Stated complaint: abd pain w/breathing right shoulder pain Time Seen by Provider: 12/27/23 23:04 Mode of Arrival: Ambulatory Source of Information: Patient Limitations: No Limitations Description of Symptoms (Recalled from ER Triage Doc. by RN): Pt presents with pain in her right rib area and chest since having a tubal on Saturday. Pt states she is passing gas and belching. Taking control for vag bleeding, and norco for pain. History of Present Illness HPI narrative: 23-year-old female with history of tubal ligation a few days ago presents for worsening right upper quadrant pain and right shoulder pain. She reports she has been taking her Percocets that she was given and it has been controlling the pain up until today when it got significantly worse. She denies any history of gallbladder issues. She reports the surgery was uncomplicated. She had her surgery done in [place]. Related Data Home Medications ?Medication ?Instructions ?Recorded ?Confirmed vits no.130-ferrous fum 1 tab PO DAILY 05/22/23 10/08/23 27 mg iron-folic acid 800 mcg tablet ( Vitamin) famotidine 20 mg tablet See Rx Instructions .Route .COMPLEX 10/08/23 10/08/23 nitrofurantoin See Rx Instructions .Route .COMPLEX 10/08/23 10/08/23 monohydrate/macrocrystals 100 mg capsule Previous Rx's ?Medication ?Instructions ?Recorded lidocaine 5 % topical patch 1 patch topical DAILY PRN pain #30 06/25/23 ea Allergies Allergy/AdvReac Type Severity Reaction Status Date / Time Penicillins Allergy Severe Anaphylaxis Verified 10/08/23 18:58 [facility] Disclaimer: The information contained in this section may have been updated after the patient was seen, as this information can be updated by other users. Surgical History H/O wisdom tooth extraction H/O adenoidectomy Hx of tonsillectomy Family History Other No significant family history Social History Smoking Status: Never smoker alcohol intake: never substance use type: denies use current occupational status: employed Travel in the last 8 weeks: None household members: family housing: house ROS Obtained: Yes All systems reviewed & no additional complaints except as documented Physical Exam General General appearance: alert and in no apparent distress Head Head exam: atraumatic and normocephalic Eye Eye exam: Present normal appearance, PERRL and EOMI ENT ENT exam: Present normal oropharynx and normal external ear exam Neck Neck exam: Present normal inspection and full ROM Chest Chest inspection: Present normal inspection and symmetric chest wall rise; Absent tenderness Respiratory Respiratory exam: Present normal lung sounds bilaterally; Absent respiratory distress Cardiovascular Cardiovascular exam: Present regular rate and normal rhythm Abdominal Exam Abdominal exam: Present soft and tenderness (Right upper quadrant, with guarding. Well-healing incisions); Absent distention or guarding Extremities Exam Extremities exam: Present normal inspection; Absent edema or joint swelling Back Exam Back exam: Present normal inspection; Absent tenderness Neurological Exam Neurological exam: Present alert and oriented X3; Absent motor sensory deficit Psychiatric Psychiatric exam: Present normal affect and normal mood Skin Skin exam: Present warm, dry and normal color Lymphatic Lymphatic Findings: no adenopathy Medical Decision Making Medical Records Medical records reviewed: Yes I reviewed the patient's medical records. Gregory Inquiry Pt receiving controlled substance: No Gregory was queried for this patient: No Vital Signs: 12/27/23 22:28 12/28/23 01:03 Temperature 98.3 F Temperature Source Oral Pulse Rate 70 Pulse Rate [Left] 81 Respiratory Rate 16 20 Blood Pressure 131/76 Blood Pressure [Right Arm] 136/74 Blood Pressure Mean [Right Arm] 94 Blood Pressure Source Automatic Cuff Blood Pressure Source [Right Arm] Automatic Cuff Blood Pressure Position Sitting Blood Pressure Position [Right Arm] Sitting 02 Sat by Pulse Oximetry 99 95 Oxygen Delivery Method Room Air Room Air Lab Data Lab results reviewed: Yes I reviewed the patient's lab results. Lab Results 12/27/23 23:35: WBC 13.5 H, RBC 4.09 L, Hgb 10.9 L, Hct 33.8 L, MCV 82.8, MCH 26.7 L, MCHC 32.3, RDW 16.4, Plt Count 278, MPV 8.2, Neut % (Auto) 62.0, Lymph % (Auto) 31.6, Cherry % (Auto) 2.9, Eos % (Auto) 2.6, Baso % (Auto) 0.9, Neut # (Auto) 8.4 H, Lymph # (Auto) 4.3, Cherry # (Auto) 0.4, Eos # (Auto) 0.4, Baso # (Auto) 0.1, D-Dimer 0.37, Sodium 138, Potassium 4.0, Chloride 108 H, Carbon Dioxide 25, Anion Gap 9.0, BUN 17, Creatinine 0.80, Estimated Creat Clear 142, Estimated GFR 90, Est GFR ( Amer) 109, Glucose 102 H, Calcium 8.6, Total Bilirubin 0.4, AST 41 H, ALT 32, Alkaline Phosphatase 91, Total Protein 6.5, Albumin 3.5, Globulin 3.0, Albumin/Globulin Ratio 1.2, Lipase 58 12/27/23 23:35 12/27/23 23:35 Orders (Tests/Meds): ED MEDICATIONS Generic Name Dose Route Start Last Admin Trade Name Freq PRN Reason Stop Dose Admin Sodium Chloride 10 ml 12/28/23 00:42 12/28/23 00:43 Sodium Chloride 0.9% 10ml Syr (Rad Only) IV 01/27/24 00:41 10 ml NEEDED PRN Administration Maintain IV Site Discontinued Medications Generic Name Dose Route Start Last Admin Trade Name Ambar PRN Reason Stop Dose Admin Acetaminophen 1,000 mg 12/27/23 23:11 12/27/23 23:21 Acetaminophen 500mg Tab PO 12/27/23 23:12 1,000 mg ONCE ONE Administration Iopamidol 75 ml 12/28/23 00:42 12/28/23 00:43 Iopamidol-370 (76%);100ml Bottle IV 12/28/23 00:43 75 ml ONCE ONE Administration Ketorolac Tromethamine 30 mg 12/27/23 23:11 12/27/23 23:22 Ketorolac 30mg/Ml Vial IV 12/27/23 23:12 30 mg ONCE ONE Administration Morphine Sulfate 4 mg 12/27/23 23:11 12/27/23 23:21 Morphine 4mg/Ml Syringe IV 12/27/23 23:12 4 mg ONCE ONE Administration Ondansetron HCl 4 mg 12/27/23 23:11 12/27/23 23:22 Ondansetron 4mg/2ml Vial IV 12/27/23 23:12 4 mg ONCE ONE Administration ORDERS Category Date Time Status CT abdomen pelvis w con Stat Cat Scan 12/27/23 23:11 Completed CBC w/Auto Diff [Complete Blood Count Auto Diff] Stat Lab 12/27/23 23:35 Completed CMP [Comprehensive Metabolic Panel] Stat Lab 12/27/23 23:35 Completed D-Dimer Stat Lab 12/27/23 23:35 Completed Lipase Stat Lab 12/27/23 23:35 Completed Medical Decision Narrative: 23-year-old female with history of tubal ligation a couple of days ago presents with worsening right upper quadrant and right shoulder pain. History was obtained via interactive discussion with patient, chart review. On arrival, patient is [afebrile, hemodynamically stable, satting appropriately, alert, oriented x4, GCS 15], moving all extremities spontaneously. Full physical exam performed and significant for moderate to severe right upper quadrant tenderness Differential includes but is not limited to expected postoperative pain secondary to irritation of the diaphragm related to retained gas, cholecystitis, abscess, postoperative complication, PE Patient was given Tylenol, Toradol, morphine for symptomatic management and correction of underlying abnormalities. Workup initiated including CBC CMP CT abdomen pelvis IV contrast, lipase. D-dimer ordered as patient cannot be perked out due to recent surgery. On re-evaluation, patient [remains afebrile, HD stable.] Pain improved after medication intervention Laboratory workup independently interpreted by me and significant for mild leukocytosis, normal lipase, minimally elevated AST, D-dimer within normal limits. Imaging independently interpreted by me and significant for air between the diaphragm and the liver, expected in the setting of recent insufflation. No obvious abscess or other postoperative complication, gallbladder appears normal. See radiology read for full review of final results. Given patient history, exam and workup, patient's presentation most likely represents postoperative pain secondary to retained gas from insufflation. These findings were communicated patient and she was discharged in stable condition. Procedures Risk/Benefits of Procedure(s) Were Explained: Yes Critical Care Critical Care Time Critical Care Time: No
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
[2023-12-27] MEDS: ACETAMINOPHEN 500MG TAB 1000 MG PO (23:21)
[2023-12-27] MEDS: MORPHINE 4MG/ML SYRINGE 4 MG IV (23:21)
[2023-12-27] MEDS: ONDANSETRON 4MG/2ML VIAL 4 MG IV (23:22)
[2023-12-27] MEDS: KETOROLAC 30MG/ML VIAL 30 MG IV (23:22)
[2023-12-27 23:46] LABS: Basophils # 0.1 K/mm3 (0-0.2); Basophils % 0.9 % (0.1-2.0); Eosinophils # 0.4 K/mm3 (0.0-0.4); Eosinophils % 2.6 % (0.1-12.0); Hematocrit 33.8 % (37.0-47.0); Hemoglobin 10.9 g/dL (12.2-16.2); Lymphocytes # 4.3 K/mm3 (0.7-4.5); Lymphocytes % 31.6 % (10-50); Mean Corpuscular HGB Conc 32.3 g/dL (31.8-35.4); Mean Corpuscular Hemoglobin 26.7 pg (27.0-31.2); Mean Corpuscular Volume 82.8 fl (81-99); Mean Platelet Volume 8.2 fl (7.4-10.4); Monocytes # 0.4 K/mm3 (0.1-1.0); Monocytes % 2.9 % (1.7-9.3); Neutrophils # 8.4 K/mm3 (1.8-7.8); Platelet Count 278 K/mm3 (142-424); Red Blood Count 4.09 M/mm3 (4.20-5.40); Red Cell Distribution Width 16.4 % (11.5-17.5); White Blood Count 13.5 K/mm3 (4.8-10.8)
[2023-12-27 23:57] LABS: Alanine Aminotransferase 32 U/L (12-78); Albumin Level 3.5 g/dl (3.5-5.0); Albumin/Globulin Ratio 1.2 (1.1-1.8); Alkaline Phosphatase 91 U/L (38-126); Aspartate Amino Transferase 41 U/L (14-36); Bilirubin,Total 0.4 mg/dl (0.2-1.3); Blood Urea Nitrogen 17 mg/dl (7-17); Calcium 8.6 mg/dl (8.4-10.2); Carbon Dioxide 25 mmol/L (22.0-30.0); Chloride 108 mmol/L (98-107); Creatinine Clearance Estimated 142 mL/min (50-200); Estimated Glomerular Filt Rate 90 ml/min (>60); GFR (African American) 109 ML/MIN (>60); Glucose 102 mg/dl (74-100); Lipase 58 U/L (23-300); Sodium 138 mmol/L (136-145); Total Protein,Serum 6.5 g/dl (6.3-8.2)
[2023-12-28 00:03] LABS: D-Dimer 0.37 ug/mL (0.0-0.5)
[2023-12-28] MEDS: SODIUM CHLORIDE 0.9% 10ML SYR (RAD ONLY) 10 ML IV (00:43)
[2023-12-28] MEDS: IOPAMIDOL-370 (76%);100ML BOTTLE 75 ML IV (00:43)
[2023-12-28 01:03] VITALS: BP 131/76; PULSE 70; RESP 20; O2SAT 95
[2023-12-28 02:05] VITALS: BP 128/71; PULSE 61; RESP 20; TEMP 36.8; O2SAT 100
== END 2023-12-28 02:11 | disposition home or self-care (01) ==
PROVIDERS: Emergency Provider Emergency Medicine; PCP Nurse Practitioner Family
DX: R10.11 Right upper quadrant pain (principal); G89.18 Other acute postprocedural pain; M25.511 Pain in right shoulder; Z98.51 Tubal ligation status
CPT/HCPCS: 74177; 80053; 83690; 85025; 85378; 96374; 96375; 99284; J1885; J2270; J2405; Q9967

== ENCOUNTER 2023-12-30 17:55 | Emergency (ER) | payer OTHER, SELFPAY ==
[2023-12-30 17:58] VITALS: BP 138/93; PULSE 89; RESP 16; TEMP 36.8; O2SAT 99; BMI 23.5
[2023-12-30 18:06] VITALS: BP 138/93; PULSE 153; O2SAT 100
--- NOTE | 2023-12-30 18:15 | CT_ITS ---
PROCEDURE INFORMATION: Exam: CTA Chest With Contrast Exam date and time: 12/30/2023 6:43 PM Age: 23 years old Clinical indication: Other: Pleuritic chest pain; Additional info: Pleuritic chest pain/soa, post op TECHNIQUE: Imaging protocol: Computed tomographic angiography of the chest with contrast. Exam focused on the arteries. 3D rendering (Not supervised by radiologist): MIP and/or 3D reconstructed images were created by the technologist. Radiation optimization: All CT scans at this facility use at least one of these dose optimization techniques: automated exposure control; mA and/or kV adjustment per patient size (includes targeted exams where dose is matched to clinical indication); or iterative reconstruction. Contrast material: ISOVUE 370; Contrast volume: 50 ml; Contrast route: INTRAVENOUS (IV); COMPARISON: CT ABDOMEN PELVIS W CON 12/30/2023 6:43 PM FINDINGS: Pulmonary arteries: Severely limited pulmonary angiogram with main pulmonary artery attenuation measuring 95 Hounsfield units, below requirement of 180 Hounsfield units. Given limits of examination there are no large filling defects involving the main pulmonary arteries. Smaller pulmonary artery branch evaluation is beyond the limits of the examination. Aorta: Unremarkable. No aortic aneurysm. No aortic dissection. Lungs: Compressive atelectasis of the lungs. Pleural spaces: Small bilateral pleural effusions are present. Heart: Unremarkable. No cardiomegaly. No pericardial effusion. Lymph nodes: Unremarkable. No enlarged lymph nodes. Bones/joints: Unremarkable. No acute fracture. Soft tissues: Unremarkable. IMPRESSION: 1. Small bilateral pleural effusions with compressive atelectasis. 2. Severely limited pulmonary angiogram with main pulmonary artery attenuation measuring 95 Hounsfield units, below requirement of 180 Hounsfield units. Given limits of examination there are no large filling defects involving the main pulmonary arteries. Smaller pulmonary artery branch evaluation is beyond the limits of the examination.
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
[2023-12-30 18:24] LABS: Coronavirus 19, PCR Not Detected (NotDetected); Influenza A, PCR Not Detected (NotDetected); Influenza B, PCR Not Detected (NotDetected)
[2023-12-30] MEDS: ACETAMINOPHEN 1,000MG/100ML VIAL 1000 MG IV (18:30)
[2023-12-30] MEDS: LACTATED RINGERS 1000ML 1,000 ML 999 ML IV (18:30)
[2023-12-30] MEDS: KETOROLAC 30MG/ML VIAL 15 MG IV (18:30)
[2023-12-30] MEDS: ONDANSETRON 4MG/2ML VIAL 4 MG IV (18:31)
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
[2023-12-30 18:44] LABS: Albumin Level 4.1 g/dl (3.5-5.0); Chloride 106 mmol/L (98-107)
--- NOTE | 2023-12-30 18:44 | PC.NURSE ---
PT gone to RAD for CT
[2023-12-30 18:45] LABS: Potassium 3.9 mmoL/L (3.5-5.1); Sodium 138 mmol/L (136-145)
[2023-12-30 18:47] LABS: Alanine Aminotransferase 27 U/L (12-78); Albumin/Globulin Ratio 1.2 (1.1-1.8); Alkaline Phosphatase 107 U/L (38-126); Anion Gap 8.9 mEq/L (5-15); Aspartate Amino Transferase 20 U/L (14-36); Bilirubin,Total 0.3 mg/dl (0.2-1.3); Blood Urea Nitrogen 13 mg/dl (7-17); Calcium 8.9 mg/dl (8.4-10.2); Carbon Dioxide 27 mmol/L (22.0-30.0); Creatinine Clearance Estimated 118 mL/min (50-200); Estimated Glomerular Filt Rate 90 ml/min (>60); GFR (African American) 109 ML/MIN (>60); Globulin 3.3 g/dL (1.3-3.2); Glucose 99 mg/dl (74-100); Lipase 74 U/L (23-300); Total Protein,Serum 7.4 g/dl (6.3-8.2)
[2023-12-30] MEDS: SODIUM CHLORIDE 0.9% 10ML SYR (RAD ONLY) 10 ML IV (18:51)
[2023-12-30] MEDS: 0.9 % SODIUM CHLORIDE 50 ML VIAL 40 ML IV (18:51)
[2023-12-30 18:52] LABS: Basophils # 0.1 K/mm3 (0-0.2); Basophils % 0.6 % (0.1-2.0); Eosinophils # 0.3 K/mm3 (0.0-0.4); Eosinophils % 1.9 % (0.1-12.0); Hematocrit 35.9 % (37.0-47.0); Hemoglobin 11.1 g/dL (12.2-16.2); Lymphocytes # 3.1 K/mm3 (0.7-4.5); Lymphocytes % 23.1 % (10-50); Mean Corpuscular HGB Conc 30.8 g/dL (31.8-35.4); Mean Corpuscular Hemoglobin 25.4 pg (27.0-31.2); Mean Corpuscular Volume 82.3 fl (81-99); Mean Platelet Volume 8.2 fl (7.4-10.4); Monocytes # 0.5 K/mm3 (0.1-1.0); Monocytes % 3.7 % (1.7-9.3); Neutrophils # 9.4 K/mm3 (1.8-7.8); Neutrophils % 70.8 % (37.0-80.0); Platelet Count 316 K/mm3 (142-424); Red Blood Count 4.36 M/mm3 (4.20-5.40); Red Cell Distribution Width 16.2 % (11.5-17.5); White Blood Count 13.3 K/mm3 (4.8-10.8)
[2023-12-30] MEDS: IOPAMIDOL-370 (76%);100ML BOTTLE 100 ML IV (18:52)
--- NOTE | 2023-12-30 18:59 | ECG_ITS ---
APPROVED REPORT Exam: Resting ECG HR:71 bpm ECG Measurements Heart Rate 71 AXES PA 130 P 42 QRSd 84 QRS 67 QT 386 T 43 QTc 409 Conclusion SINUS RHYTHM WITH SINUS ARRHYTHMIA NORMAL ECG Electronically signed by : SAMEER MONTEJO, 12/31/2023 19:16:05
[2023-12-30 19:01] VITALS: BP 113/61; PULSE 73; O2SAT 96
--- NOTE | 2023-12-30 19:02 | PC.NURSE ---
PT returned to room from RAD
[2023-12-30 19:24] LABS: Troponin I < 0.01 ng/ml (0.00-0.034)
[2023-12-30 19:56] VITALS: BP 111/65; PULSE 55; O2SAT 100
[2023-12-30 20:28] VITALS: BP 132/57; PULSE 74; RESP 16; TEMP 36.6; O2SAT 97
== END 2023-12-30 20:29 | disposition home or self-care (01) ==
PROVIDERS: Emergency Provider Emergency Medicine; PCP Nurse Practitioner Family
DX: R07.9 Chest pain, unspecified (principal); R11.0 Nausea; R10.84 Generalized abdominal pain; G89.18 Other acute postprocedural pain
CPT/HCPCS: 71275; 74177; 80053; 83690; 84484; 85025; 87636; 93005; 96361; 96374; 96375; 99285; J0131; J1885; J2405; J7120; Q9967

== ENCOUNTER 2024-01-20 21:31 | Emergency (ER) | payer OTHER, SELFPAY ==
[2024-01-20 22:23] VITALS: BP 129/79; PULSE 100; RESP 22; TEMP 36.7; O2SAT 97; BMI 25.8
--- NOTE | 2024-01-20 22:29 | [facility].EDGENADL ---
Discharge Plan Disposition Patient Disposition: Home, Self-Care Prescriptions Prescriptions: New roorbobhziukapc-kpcprkacq-GI [Bromfed DM] 2-30-10 mg/5 mL syrup 5 ml PO Q6H PRN (Reason: cold symptoms) Qty: 118 0RF No Action Vitamin 27 mg iron- 800 mcg tablet 1 tab PO DAILY Patient Comments: TAKE 1 TABLET BY MOUTH ONCE DAILY lidocaine 5 % adhesive patch,medicated 1 patch topical DAILY PRN (Reason: pain) Qty: 30 0RF Rx Instructions: leave on most painful area for up to 12 hrs ondansetron 4 mg tablet,disintegrating 4 mg PO Q8H PRN (Reason: nausea and vomiting) 4 Days Qty: 12 0RF famotidine 20 mg tablet See Rx Instructions .ROUTE .COMPLEX Patient Comments: TAKE 1 TABLET BY MOUTH EVERY 12 HOURS FOR 10 DAYS Rx Instructions: TAKE 1 TABLET BY MOUTH EVERY 12 HOURS FOR 10 DAYS nitrofurantoin monohyd/m-cryst 100 mg capsule See Rx Instructions .ROUTE .COMPLEX Patient Comments: TAKE 1 CAPSULE BY MOUTH EVERY 12 HOURS FOR 7 DAYS Rx Instructions: TAKE 1 CAPSULE BY MOUTH EVERY 12 HOURS FOR 7 DAYS Referrals Follow up/Referrals: Shameka Quiñones APRN [Primary Care Provider] - See instructions Activity Restrictions/Add. Instructions Additional Instructions/Restrictions: At this time it was felt you are safe to be discharged home. If new or worsening symptoms please do not hesitate to return the emergency department. If your COVID swab is positive we will call you this evening. Please take your medication as prescribed. As discussed you have fluid in the middle ear on your right side that is not infected if you become running a high fever or have significant ear pain over the next few days please have your family doctor take a look to make sure that you do not need antibiotics. Clinical Impressions Clinical Impression: Upper respiratory infection, viral, Acute middle ear effusion Print Language Print Language: Citizen Of [place] Discharge ED Provider: Gatito Ortega General Adult HPI General Chief complaint: Upper Respiratory Infection Stated complaint: cough, jewel Time Seen by Provider: 01/20/24 22:15 Mode of Arrival: Family Vehicle Source of Information: Patient Limitations: No Limitations Description of Symptoms (Recalled from ER Triage Doc. by RN): 23 yo female presents with cough and congestion, sore throat, and bilat ear discomfort. 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 No fever. Denies smoking/vaping. PMH: recent tubal. Allergic to PCN (anaphylaxis). History of Present Illness HPI narrative: Patient is a 23-year-old female who presents emergency department for evaluation of cough, ear discomfort, sore throat. 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 Adequate p.o. intake and urine output. No other acute complaints at this time. The sore throat only happens when she coughs and does not have a rest. Related Data Home Medications ?Medication ?Instructions ?Recorded ?Confirmed vits no.130-ferrous fum 1 tab PO DAILY 05/22/23 10/08/23 27 mg iron-folic acid 800 mcg tablet ( Vitamin) famotidine 20 mg tablet See Rx Instructions .Route .COMPLEX 10/08/23 10/08/23 nitrofurantoin See Rx Instructions .Route .COMPLEX 10/08/23 10/08/23 monohydrate/macrocrystals 100 mg capsule Previous Rx's ?Medication ?Instructions ?Recorded lidocaine 5 % topical patch 1 patch topical DAILY PRN pain #30 06/25/23 ea ondansetron 4 mg disintegrating 4 mg PO Q8H PRN nausea and 12/30/23 tablet vomiting 4 days #12 tabs kztzsrzczkxymke-ozxbaqthivkksiq-TY 5 ml PO Q6H PRN cold symptoms #118 01/20/24 2 mg-30 mg-10 mg/5 mL oral syrup mL (Bromfed DM) Allergies Allergy/AdvReac Type Severity Reaction Status Date / Time Penicillins Allergy Severe Anaphylaxis Verified 10/08/23 18:58 [facility] Disclaimer: The information contained in this section may have been updated after the patient was seen, as this information can be updated by other users. Surgical History H/O wisdom tooth extraction H/O adenoidectomy Hx of tonsillectomy Family History Other No significant family history Social History Smoking Status: Unknown if ever smoked alcohol intake: never substance use type: denies use current occupational status: employed Travel in the last 8 weeks: None household members: family housing: house ROS Obtained: Yes Systems reviewed as appropriate & no additional complaints except as documented Physical Exam General General appearance: alert and in no apparent distress Head Head exam: atraumatic and normocephalic Eye Eye exam: Present PERRL and EOMI ENT ENT exam: Present mucous membranes moist; Absent TM's normal bilaterally (Serous right-sided middle ear effusion) Neck Neck exam: Present normal inspection Chest Chest inspection: Present normal inspection and symmetric chest wall rise Respiratory Respiratory exam: Present normal lung sounds bilaterally; Absent respiratory distress Cardiovascular Cardiovascular exam: Present regular rate and normal rhythm Abdominal Exam Abdominal exam: Present soft Extremities Exam Extremities exam: Present normal inspection Neurological Exam Neurological exam: Present alert Psychiatric Psychiatric exam: Present normal affect Skin Skin exam: Present warm and dry Medical Decision Making Gregory Inquiry Pt receiving controlled substance: No Vital Signs: 01/20/24 22:23 Temperature 98.0 F Temperature Source Oral Pulse Rate [Right Brachial] 100 H Respiratory Rate 22 Blood Pressure [Right Arm] 129/79 Blood Pressure Mean [Right Arm] 95 Blood Pressure Source [Right Arm] Automatic Cuff Blood Pressure Position [Right Arm] Sitting 02 Sat by Pulse Oximetry 97 Oxygen Delivery Method Room Air Orders (Tests/Meds): ORDERS Category Date Time Status Rapid PCR Covid and Flu A/B Stat Lab 01/20/24 22:27 Ordered Medical Decision Narrative: In summary patient is a 23-year-old female past medical history described above presents emergency department for evaluation of cough, ear fullness, sore throat. Patient is hemodynamically stable nontoxic-appearing upon arrival, afebrile. Patient is clear to auscultation all lung [place] therefore workup with imaging was considered for pneumonia but will be deferred at this time. The back of her oropharynx is clear and shared decision-making discussion was had as to the utility of swabbing for strep and will be deferred. Limited workup be conducted with COVID swab and patient is appropriate for discharge at this time. Patient will be discharged with Bromfed was given return precautions. Critical Care Critical Care Time Critical Care Time: No
[2024-01-20 22:36] VITALS: BP 139/83; PULSE 84; RESP 20; TEMP 37.1; O2SAT 99
[2024-01-20 22:40] LABS: Coronavirus 19, PCR Not Detected (NotDetected); Influenza A, PCR Not Detected (NotDetected); Influenza B, PCR Not Detected (NotDetected)
== END 2024-01-20 22:42 | disposition home or self-care (01) ==
PROVIDERS: Emergency Provider Emergency Medicine; PCP Nurse Practitioner Family
DX: H66.003 Acute suppurative otitis media without spontaneous rupture of ear drum, bilateral (principal); R05.9 Cough, unspecified; J06.9 Acute upper respiratory infection, unspecified; B34.9 Viral infection, unspecified
CPT/HCPCS: 87636; 99283

== ENCOUNTER 2024-01-27 01:01 | Emergency (ER) | payer OTHER, SELFPAY ==
--- NOTE | 2024-01-27 01:22 | HMH.EDGENADL ---
Discharge Plan Disposition Patient Disposition: Home, Self-Care Prescriptions Prescriptions: No Action Vitamin 27 mg iron- 800 mcg tablet 1 tab PO DAILY Patient Comments: TAKE 1 TABLET BY MOUTH ONCE DAILY lidocaine 5 % adhesive patch,medicated 1 patch topical DAILY PRN (Reason: pain) Qty: 30 0RF Rx Instructions: leave on most painful area for up to 12 hrs ondansetron 4 mg tablet,disintegrating 4 mg PO Q8H PRN (Reason: nausea and vomiting) 4 Days Qty: 12 0RF famotidine 20 mg tablet See Rx Instructions .ROUTE .COMPLEX Patient Comments: TAKE 1 TABLET BY MOUTH EVERY 12 HOURS FOR 10 DAYS Rx Instructions: TAKE 1 TABLET BY MOUTH EVERY 12 HOURS FOR 10 DAYS nitrofurantoin monohyd/m-cryst 100 mg capsule See Rx Instructions .ROUTE .COMPLEX Patient Comments: TAKE 1 CAPSULE BY MOUTH EVERY 12 HOURS FOR 7 DAYS Rx Instructions: TAKE 1 CAPSULE BY MOUTH EVERY 12 HOURS FOR 7 DAYS [id number]-[id number] [Bromfed DM] 2-30-10 mg/5 mL syrup 5 ml PO Q6H PRN (Reason: cold symptoms) Qty: 118 0RF Referrals Follow up/Referrals: Shameka Quiñones APRN [Primary Care Provider] - See instructions Activity Restrictions/Add. Instructions Additional Instructions/Restrictions: Please follow-up with your primary care provider. Please return to the emergency department if you develop any new or worsening symptoms or become concerned for your health. Clinical Impressions Clinical Impression: Epigastric abdominal pain Instructions Patient Instructions: DI for Acute Abdominal Pain Print Language Print Language: Sami Discharge ED Provider: Chito Hebert General Adult HPI General Chief complaint: Abdominal Pain Stated complaint: abd pain, tubal surgery 4 weeks ago Time Seen by Provider: 01/27/24 01:21 History of Present Illness HPI narrative: 23-year-old female presents with epigastric abdominal pain. I saw her about a month ago for similar symptoms. At that time she was within a couple of days of a bilateral tubal ligation. Her workup at that time demonstrated air above the liver without any other abnormalities. She reports that her pain went away for a few days after that visit, and has been there sporadically over the last month or so. She comes in tonight because the pain has been worsening and has begun to get severe and associated with nausea. She reports the pain is more epigastric rather than right upper quadrant. Denies any fever at home. Related Data Home Medications ?Medication ?Instructions ?Recorded ?Confirmed vits no.130-ferrous fum 1 tab PO DAILY 05/22/23 10/08/23 27 mg iron-folic acid 800 mcg tablet ( Vitamin) famotidine 20 mg tablet See Rx Instructions .Route .COMPLEX 10/08/23 10/08/23 nitrofurantoin See Rx Instructions .Route .COMPLEX 10/08/23 10/08/23 monohydrate/macrocrystals 100 mg capsule Previous Rx's ?Medication ?Instructions ?Recorded lidocaine 5 % topical patch 1 patch topical DAILY PRN pain #30 06/25/23 ea ondansetron 4 mg disintegrating 4 mg PO Q8H PRN nausea and 12/30/23 tablet vomiting 4 days #12 tabs arxtzrvvfrvpihx-dezehjmdrhasqte-OO 5 ml PO Q6H PRN cold symptoms #118 01/20/24 2 mg-30 mg-10 mg/5 mL oral syrup mL (Bromfed DM) Allergies Allergy/AdvReac Type Severity Reaction Status Date / Time Penicillins Allergy Severe Anaphylaxis Verified 10/08/23 18:58 [facility] Disclaimer: The information contained in this section may have been updated after the patient was seen, as this information can be updated by other users. Surgical History H/O wisdom tooth extraction H/O adenoidectomy Hx of tonsillectomy Family History Other No significant family history Social History Smoking Status: Never smoker alcohol intake: never substance use type: denies use current occupational status: employed Travel in the last 8 weeks: None household members: family housing: house ROS Obtained: Yes All systems reviewed & no additional complaints except as documented Physical Exam General General appearance: alert and in no apparent distress Head Head exam: atraumatic and normocephalic Eye Eye exam: Present normal appearance, PERRL and EOMI ENT ENT exam: Present normal oropharynx and normal external ear exam Neck Neck exam: Present normal inspection and full ROM Chest Chest inspection: Present normal inspection and symmetric chest wall rise; Absent tenderness Respiratory Respiratory exam: Present normal lung sounds bilaterally; Absent respiratory distress Cardiovascular Cardiovascular exam: Present regular rate and normal rhythm Abdominal Exam Abdominal exam: Present soft and tenderness (Mild, epigastric); Absent distention or guarding Extremities Exam Extremities exam: Present normal inspection; Absent edema or joint swelling Back Exam Back exam: Present normal inspection; Absent tenderness Neurological Exam Neurological exam: Present alert and oriented X3; Absent motor sensory deficit Psychiatric Psychiatric exam: Present normal affect and normal mood Skin Skin exam: Present warm, dry and normal color Lymphatic Lymphatic Findings: no adenopathy Medical Decision Making Medical Records Medical records reviewed: Yes I reviewed the patient's medical records. Gregory Inquiry Pt receiving controlled substance: No Gregory was queried for this patient: No Vital Signs: 01/27/24 01:25 Temperature 98.0 F Temperature Source Axillary Pulse Rate [Right] 71 Respiratory Rate 18 Blood Pressure [Right Arm] 144/83 H Blood Pressure Mean [Right Arm] 103 02 Sat by Pulse Oximetry 98 Oxygen Delivery Method Room Air Lab Data Lab results reviewed: Yes I reviewed the patient's lab results. Lab Results 01/27/24 01:29: WBC 9.6, RBC 4.32, Hgb 11.2 L, Hct 35.7 L, MCV 82.7, MCH 26.0 L, MCHC 31.4 L, RDW 16.5, Plt Count 265, MPV 9.0, Neut % (Auto) 54.4, Lymph % (Auto) 39.0, [place] % (Auto) 4.2, Eos % (Auto) 1.9, Baso % (Auto) 0.6, Neut # (Auto) 5.2, Lymph # (Auto) 3.8, [place] # (Auto) 0.4, Eos # (Auto) 0.2, Baso # (Auto) 0.1, Sodium 140, Potassium 3.4 L, Chloride 108 H, Carbon Dioxide 28, Anion Gap 7.4, BUN 13, Creatinine 0.80, Estimated Creat Clear 134, Estimated GFR 90, Est GFR ( Amer) 109, Glucose 111 H, Calcium 8.5, Total Bilirubin 0.4, AST 21, ALT 19, Alkaline Phosphatase 91, Total Protein 6.9, Albumin 3.9, Globulin 3.0, Albumin/Globulin Ratio 1.3, Lipase 117 01/27/24 01:29 01/27/24 01:29 Orders (Tests/Meds): ED MEDICATIONS Generic Name Dose Route Start Last Admin Trade Name Freq PRN Reason Stop Dose Admin Sodium Chloride 10 ml 01/27/24 02:04 01/27/24 02:05 Sodium Chloride 0.9% 10ml Syr (Rad Only) IV 02/26/24 02:03 10 ml NEEDED PRN Administration Maintain IV Site Discontinued Medications Generic Name Dose Route Start Last Admin Trade Name Freq PRN Reason Stop Dose Admin Lactated Ringer's 1,000 mls @ 999 mls/hr 01/27/24 01:45 01/27/24 01:42 Lactated Ringer's 1000 Ml Bag IV 01/27/24 02:45 999 mls/hr .Q1H1M YESENIA Administration Iopamidol 75 ml 01/27/24 02:04 01/27/24 02:05 Iopamidol-370 (76%);100ml Bottle IV 01/27/24 02:05 75 ml ONCE ONE Administration Morphine Sulfate 4 mg 01/27/24 01:36 01/27/24 01:42 Morphine 4mg/Ml Syringe IV 01/27/24 01:37 4 mg ONCE ONE Administration Morphine Sulfate 4 mg 01/27/24 02:10 01/27/24 02:25 Morphine 4mg/Ml Syringe IV 01/27/24 02:11 4 mg ONCE ONE Administration Ondansetron HCl 4 mg 01/27/24 01:36 01/27/24 01:43 Ondansetron 4mg/2ml Vial IV 01/27/24 01:37 4 mg ONCE ONE Administration ORDERS Category Date Time Status CT abdomen pelvis w con Stat Cat Scan 01/27/24 01:36 Completed CBC w/Auto Diff [Complete Blood Count Auto Diff] Stat Lab 01/27/24 01:29 Completed CMP [Comprehensive Metabolic Panel] Stat Lab 01/27/24 01:29 Completed Lipase Stat Lab 01/27/24 01:29 Completed Medical Decision Narrative: 23-year-old female with history of tubal ligation approximately 1 month ago presents for epigastric abdominal pain and nausea. History was obtained via interactive discussion with patient, family, chart review. On arrival, patient is [afebrile, hemodynamically stable, satting appropriately, alert, oriented x4, GCS 15], moving all extremities spontaneously. Full physical exam performed and significant for mild epigastric tenderness. Differential includes but is not limited to cholecystitis, pancreatitis, gastritis, constipation,. Patient was given IV morphine 4 mg x 2, fluid bolus, 4 mg IV Zofran. Patient took Tylenol and ibuprofen at home. Workup initiated including CBC CMP lipase CT abdomen and pelvis with IV contrast. On re-evaluation, patient [remains afebrile, HD stable.] Laboratory workup independently interpreted by me and significant for no significant leukocytosis, minimal hypokalemia, normal lipase. Imaging independently interpreted by me and significant for normal gallbladder, normal pancreas, no significant constipation or other pathology noted. See radiology read for full review of final results. On reassessment, patient reports marked symptomatic improvement. Given patient history, exam and workup, patient's presentation most likely represents epigastric abdominal pain that may be related to gastritis, stomach ulcer etc. Does not appear to be related to emergent pathology at this time. I gave her instructions regarding symptomatic care and encouraged her to follow-up with PCP and with GI for further assessment. Procedures Risk/Benefits of Procedure(s) Were Explained: Yes Critical Care Critical Care Time Critical Care Time: No
[2024-01-27 01:25] VITALS: BP 144/83; PULSE 71; RESP 18; TEMP 36.7; O2SAT 98; BMI 28.3
--- NOTE | 2024-01-27 01:36 | CT_ITS ---
PROCEDURE INFORMATION: Exam: CT Abdomen And Pelvis With Contrast Exam date and time: 01/27/2024 2:00 AM Age: 23 years old Clinical indication: Nausea; Abdominal pain; Epigastric; Additional info: Epigastric abd pain, nausea TECHNIQUE: Imaging protocol: Computed tomography of the abdomen and pelvis with contrast. Radiation optimization: All CT scans at this facility use at least one of these dose optimization techniques: automated exposure control; mA and/or kV adjustment per patient size (includes targeted exams where dose is matched to clinical indication); or iterative reconstruction. Contrast material: ISOVUE; Contrast volume: 75 ml; Contrast route: IV; COMPARISON: CT ABDOMEN PELVIS W CON 12/30/2023 6:43 PM FINDINGS: Liver: Normal. No mass. Gallbladder and biliary ducts: Normal. No calcified stones. No ductal dilation. Pancreas: Normal. No ductal dilation. Spleen: Normal. No splenomegaly. Adrenal glands: Normal. No mass. Kidneys and ureters: Normal. No hydronephrosis. Stomach and bowel: Unremarkable. No obstruction. No mucosal thickening. Appendix: No evidence of appendicitis. Intraperitoneal space: Unremarkable. No free air. No significant fluid collection. Vasculature: Unremarkable. No abdominal aortic aneurysm. Lymph nodes: Unremarkable. No enlarged lymph nodes. Urinary bladder: Unremarkable as visualized. Reproductive: Unremarkable as visualized. Bones/joints: Unremarkable. No acute fracture. Soft tissues: Unremarkable. IMPRESSION: No acute findings.
[2024-01-27 01:41] LABS: Basophils # 0.1 K/mm3 (0-0.2); Basophils % 0.6 % (0.1-2.0); Eosinophils # 0.2 K/mm3 (0.0-0.4); Eosinophils % 1.9 % (0.1-12.0); Hematocrit 35.7 % (37.0-47.0); Hemoglobin 11.2 g/dL (12.2-16.2); Lymphocytes # 3.8 K/mm3 (0.7-4.5); Mean Corpuscular HGB Conc 31.4 g/dL (31.8-35.4); Mean Corpuscular Volume 82.7 fl (81-99); Monocytes # 0.4 K/mm3 (0.1-1.0); Monocytes % 4.2 % (1.7-9.3); Neutrophils # 5.2 K/mm3 (1.8-7.8); Neutrophils % 54.4 % (37.0-80.0); Platelet Count 265 K/mm3 (142-424); Red Blood Count 4.32 M/mm3 (4.20-5.40); Red Cell Distribution Width 16.5 % (11.5-17.5); White Blood Count 9.6 K/mm3 (4.8-10.8)
[2024-01-27] MEDS: LACTATED RINGERS 1000ML 1,000 ML 999 ML IV (01:42)
[2024-01-27] MEDS: MORPHINE 4MG/ML SYRINGE 4 MG IV ×2 (01:42→02:25)
[2024-01-27 01:43] LABS: Albumin Level 3.9 g/dl (3.5-5.0); Chloride 108 mmol/L (98-107); Potassium 3.4 mmoL/L (3.5-5.1); Sodium 140 mmol/L (136-145)
[2024-01-27] MEDS: ONDANSETRON 4MG/2ML VIAL 4 MG IV (01:43)
[2024-01-27 01:46] LABS: Alanine Aminotransferase 19 U/L (12-78); Albumin/Globulin Ratio 1.3 (1.1-1.8); Alkaline Phosphatase 91 U/L (38-126); Anion Gap 7.4 mEq/L (5-15); Aspartate Amino Transferase 21 U/L (14-36); Bilirubin,Total 0.4 mg/dl (0.2-1.3); Blood Urea Nitrogen 13 mg/dl (7-17); Carbon Dioxide 28 mmol/L (22.0-30.0); Creatinine Clearance Estimated 134 mL/min (50-200); Estimated Glomerular Filt Rate 90 ml/min (>60); GFR (African American) 109 ML/MIN (>60); Lipase 117 U/L (23-300); Total Protein,Serum 6.9 g/dl (6.3-8.2)
[2024-01-27 01:47] LABS: Calcium 8.5 mg/dl (8.4-10.2); Glucose 111 mg/dl (74-100)
[2024-01-27] MEDS: IOPAMIDOL-370 (76%);100ML BOTTLE 75 ML IV (02:05)
[2024-01-27] MEDS: SODIUM CHLORIDE 0.9% 10ML SYR (RAD ONLY) 10 ML IV (02:05)
[2024-01-27 03:58] VITALS: BP 129/72; PULSE 72; RESP 16; TEMP 36.7; O2SAT 100
== END 2024-01-27 04:06 | disposition home or self-care (01) ==
PROVIDERS: Emergency Provider Emergency Medicine; PCP Nurse Practitioner Family
DX: R10.13 Epigastric pain (principal); R11.0 Nausea
CPT/HCPCS: 74177; 80053; 83690; 85025; 96361; 96374; 96375; 96376; 99285; J2270; J2405; J7120; Q9967

== ENCOUNTER 2024-01-30 02:07 | Emergency (ER) | payer OTHER, SELFPAY ==
[2024-01-30 02:09] VITALS: BP 127/77; PULSE 69; RESP 20; TEMP 37.1; O2SAT 97; BMI 30.4
--- NOTE | 2024-01-30 02:24 | HMH.EDGENADL ---
Discharge Plan Disposition Patient Disposition: Home, Self-Care Condition: Good Chief Complaint: Abdominal Pain Prescriptions Prescriptions: No Action Vitamin 27 mg iron- 800 mcg tablet 1 tab PO DAILY Patient Comments: TAKE 1 TABLET BY MOUTH ONCE DAILY lidocaine 5 % adhesive patch,medicated 1 patch topical DAILY PRN (Reason: pain) Qty: 30 0RF Rx Instructions: leave on most painful area for up to 12 hrs ondansetron 4 mg tablet,disintegrating 4 mg PO Q8H PRN (Reason: nausea and vomiting) 4 Days Qty: 12 0RF famotidine 20 mg tablet See Rx Instructions .ROUTE .COMPLEX Patient Comments: TAKE 1 TABLET BY MOUTH EVERY 12 HOURS FOR 10 DAYS Rx Instructions: TAKE 1 TABLET BY MOUTH EVERY 12 HOURS FOR 10 DAYS nitrofurantoin monohyd/m-cryst 100 mg capsule See Rx Instructions .ROUTE .COMPLEX Patient Comments: TAKE 1 CAPSULE BY MOUTH EVERY 12 HOURS FOR 7 DAYS Rx Instructions: TAKE 1 CAPSULE BY MOUTH EVERY 12 HOURS FOR 7 DAYS tioiatyjlremoyw-caskvfvox-PZ [Bromfed DM] 2-30-10 mg/5 mL syrup 5 ml PO Q6H PRN (Reason: cold symptoms) Qty: 118 0RF Referrals Follow up/Referrals: Miguelangel Pierce MD [Staff Physician] - See instructions Shameka Quiñones APRN [Primary Care Provider] - See instructions Activity Restrictions/Add. Instructions Additional Instructions/Restrictions: Please call to establish care with our GI doctor. Please return to the emergency department if you develop any new or worsening symptoms or become concerned for your health. Clinical Impressions Clinical Impression: Abdominal pain, chronic, epigastric Instructions Patient Instructions: DI for Acute Abdominal Pain Print Language Print Language: Armenian Discharge ED Provider: Chito Hebert Adult HPI General Chief complaint: Abdominal Pain Stated complaint: abd pain Time Seen by Provider: 01/30/24 02:10 Mode of Arrival: Ambulatory Source of Information: Patient Limitations: No Limitations Description of Symptoms (Recalled from ER Triage Doc. by RN): Patient presents to ED with upper abd pain. Patient states she was seen in the ED two days ago and was dx with an ulcer. Patient was seen by her PCP on Saturday and was given Bentyl and pepcid. Patient reports those have not helped her pain. Patient states she is suppose to see a GI doctor but can not get in till March. History of Present Illness HPI narrative: 23-year-old female presents for chronic abdominal pain. I have seen her several times over the last couple of months. I saw her 2 days ago, she had stable symptoms at that time. Blood work and CT scan at that time showed no evidence of emergent pathology. She followed up with her PCP and started her on Pepcid and dicyclomine but she says it has not really helped. She reports that she does not deal with pain very well and is still hurting intermittently. She reports that she is trying to get into see a GI doctor but the earliest they can get her in is March. She denies any significant vomiting, fever. Related Data Home Medications ?Medication ?Instructions ?Recorded ?Confirmed vits no.130-ferrous fum 1 tab PO DAILY 05/22/23 10/08/23 27 mg iron-folic acid 800 mcg tablet ( Vitamin) famotidine 20 mg tablet See Rx Instructions .Route .COMPLEX 10/08/23 10/08/23 nitrofurantoin See Rx Instructions .Route .COMPLEX 10/08/23 10/08/23 monohydrate/macrocrystals 100 mg capsule Previous Rx's ?Medication ?Instructions ?Recorded lidocaine 5 % topical patch 1 patch topical DAILY PRN pain #30 06/25/23 ea ondansetron 4 mg disintegrating 4 mg PO Q8H PRN nausea and 12/30/23 tablet vomiting 4 days #12 tabs zfzfmxcrxbqvbii-cngykocgzdwwqrg-FE 5 ml PO Q6H PRN cold symptoms #118 01/20/24 2 mg-30 mg-10 mg/5 mL oral syrup mL (Bromfed DM) Allergies Allergy/AdvReac Type Severity Reaction Status Date / Time Penicillins Allergy Severe Anaphylaxis Verified 10/08/23 18:58 [facility] Disclaimer: The information contained in this section may have been updated after the patient was seen, as this information can be updated by other users. Surgical History H/O wisdom tooth extraction H/O adenoidectomy Hx of tonsillectomy Family History Other No significant family history Social History Smoking Status: Never smoker alcohol intake: never substance use type: denies use current occupational status: employed Travel in the last 8 weeks: None household members: family housing: house ROS Obtained: Yes All systems reviewed & no additional complaints except as documented Physical Exam General General appearance: alert and in no apparent distress Head Head exam: atraumatic and normocephalic Eye Eye exam: Present normal appearance, PERRL and EOMI ENT ENT exam: Present normal oropharynx and normal external ear exam Neck Neck exam: Present normal inspection and full ROM Chest Chest inspection: Present normal inspection and symmetric chest wall rise; Absent tenderness Respiratory Respiratory exam: Present normal lung sounds bilaterally; Absent respiratory distress Cardiovascular Cardiovascular exam: Present regular rate and normal rhythm Abdominal Exam Abdominal exam: Present soft; Absent distention, tenderness or guarding Extremities Exam Extremities exam: Present normal inspection; Absent edema or joint swelling Back Exam Back exam: Present normal inspection; Absent tenderness Neurological Exam Neurological exam: Present alert and oriented X3; Absent motor sensory deficit Psychiatric Psychiatric exam: Present normal affect and normal mood Skin Skin exam: Present warm, dry and normal color Lymphatic Lymphatic Findings: no adenopathy Medical Decision Making Medical Records Medical records reviewed: Yes I reviewed the patient's medical records. Screening: Per USPSTF and CDC recommendations, given the prevalence of disease in our region, it is our hospital?s policy to screen for HIV and viral Hepatitis for all patients aged 18 and over and those with ongoing risk factors. Gregory Inquiry Pt receiving controlled substance: No Gregory was queried for this patient: No Vital Signs: 01/30/24 02:09 Temperature 98.8 F Temperature Source Oral Pulse Rate [Right Brachial] 69 Respiratory Rate 20 Blood Pressure [Right Arm] 127/77 Blood Pressure Mean [Right Arm] 93 Blood Pressure Source [Right Arm] Automatic Cuff Blood Pressure Position [Right Arm] Supine 02 Sat by Pulse Oximetry 97 Oxygen Delivery Method Room Air Lab Data Lab results reviewed: Yes I reviewed the patient's lab results. Medical Decision Narrative: 23-year-old female with chronic abdominal pain presents for persistent symptoms she was seen here 2 days ago for the same symptoms.. History was obtained via interactive discussion with patient, chart review. On arrival, patient is [afebrile, hemodynamically stable, satting appropriately, alert, oriented x4, GCS 15], moving all extremities spontaneously. Full physical exam performed and significant for benign abdominal exam without tenderness or peritonitis. Differential includes but is not limited to functional abdominal pain, gastritis, gastroenteritis, pancreatitis, cholecystitis, colitis.. Blood work, stool studies, CT imaging, medication interventions was considered, but deemed unnecessary due to history and physical exam.. Given patient history, exam and workup, patient's presentation most likely represents chronic abdominal pain of uncertain etiology. Based on recent negative workup, stable symptoms, benign abdominal exam, I do not have any concern for significant emergent pathology at this time. Patient was discharged with instructions to call our GI to try to get in to be seen. She was discharged with return precautions. Procedures Risk/Benefits of Procedure(s) Were Explained: Yes Critical Care Critical Care Time Critical Care Time: No
[2024-01-30 02:26] VITALS: BP 127/77; PULSE 74; RESP 18; TEMP 37.1; O2SAT 99
== END 2024-01-30 02:27 | disposition home or self-care (01) ==
LOC: ER 02:27
PROVIDERS: Emergency Provider Emergency Medicine; PCP Nurse Practitioner Family
DX: R10.13 Epigastric pain (principal); G89.29 Other chronic pain
CPT/HCPCS: 99283

== ENCOUNTER 2024-06-15 08:13 | Emergency (ER) | payer OTHER, SELFPAY ==
--- NOTE | 2024-06-15 08:30 | ED_ITS ---
Discharge Plan Disposition Patient Disposition: Home, Self-Care Condition: Good Prescriptions Prescriptions: No Action dicyclomine 20 mg tablet 20 mg PO PRN Patient Comments: TAKE 1 TABLET BY MOUTH 4 TIMES DAILY NEEDED FOR ABDOMINAL PAIN pantoprazole 40 mg tablet,delayed release (DR/EC) PO Patient Comments: TAKE 1 TABLET BY MOUTH ONCE DAILY IN THE MORNING FOR 8 WEEKS sucralfate 1 gram tablet 1 g PO ONCE Patient Comments: TAKE 1 TABLET BY MOUTH EVERY 4 HOURS ON AN EMPTY STOMACH ON WAKING AND AT BEDTIME Referrals Follow up/Referrals: Provider,Referral, MD [Primary Care Provider] - See instructions Activity Restrictions/Add. Instructions Additional Instructions/Restrictions: Drink plenty of fluids. Take tylenol for pain or fever. Follow up with your regular doctor. GO TO THE ER FOR ANY WORSENING SYMPTOMS Clinical Impressions Clinical Impression: Acute viral syndrome Stand Alone Forms Stand Alone Forms: Work/School Release Instructions Patient Instructions: DI for Viral Syndrome Print Language Print Language: Tajik Discharge ED Provider: Poncho Beckford [facility] General Stated complaint: congestion and cough,24 weeks preg Time Seen by Provider: 06/15/24 08:26 Related Data Home Medications ?Medication ?Instructions ?Recorded ?Confirmed dicyclomine 20 mg tablet 20 mg PO PRN 01/30/24 01/30/24 pantoprazole 40 mg tablet,delayed mg PO 01/30/24 01/30/24 release sucralfate 1 gram tablet 1 g PO ONCE 01/30/24 01/30/24 Allergies Allergy/AdvReac Type Severity Reaction Status Date / Time Penicillins Allergy Severe Anaphylaxis Verified 01/30/24 10:39 [facility] Disclaimer: The information contained in this section may have been updated after the patient was seen, as this information can be updated by other users. Surgical History H/O wisdom tooth extraction H/O adenoidectomy Hx of tonsillectomy Family History Other No significant family history Social History Smoking Status: Never smoker alcohol intake: never substance use type: denies use current occupational status: employed Travel in the last 8 weeks: None household members: family housing: house Have you lived/traveled outside [place] in past 30 days?: No Contact w/someone who lives/traveled outside [place] past 30 days?: No Exposure to someone with infectious disease in past 14 days?: No Do you have a fever (greater than 100.4 F or 38 C)?: No Have you tested positive for COVID-19: No Exposed to someone with COVID-19 in past 14 days?: No Do you have a sore throat?: No Do you have a cough?: No Do you have any weakness?: No Do you have any diarrhea?: No Are you experiencing any unusual bleeding?: No Do you have any muscle aches/pain?: No Do you have any abdominal pain?: No Are you experiencing loss of taste or smell?: No ROS Obtained: Yes All systems reviewed & no additional complaints except as documented Constitutional Constitutional: Reports chills and Reports fever(s) Eyes Eyes: Denies eye discharge ENT Ears, Nose, Mouth, and Throat: Reports as per HPI Cardiovascular Cardiovascular: Denies chest pain Respiratory Respiratory: Denies chest congestion and Reports cough Gastrointestinal Gastrointestingal: Reports nausea; Denies abdominal pain, constipation, cramping, diarrhea or vomiting Musculoskeletal Musculoskeletal: Denies arthralgias Integumentary/Breasts Skin/Breast: Denies rash Neurologic Neurologic: Denies paresthesias Physical Exam General General appearance: alert and in no apparent distress Head Head exam: atraumatic, normocephalic and normal inspection Eye Eye exam: Present normal appearance, PERRL and EOMI ENT ENT exam: Present normal exam, normal oropharynx, mucous membranes moist, TM's normal bilaterally and normal external ear exam Neck Neck exam: Present normal inspection, full ROM and trachea midline; Absent meningismus or lymphadenopathy Chest Chest inspection: Present normal inspection and symmetric chest wall rise; Absent tenderness Respiratory Respiratory exam: Present normal lung sounds bilaterally; Absent respiratory distress Cardiovascular Cardiovascular exam: Present regular rate and normal rhythm; Absent JVD Abdominal Exam Abdominal exam: Present soft and normal bowel sounds; Absent distention, tenderness or guarding Extremities Exam Extremities exam: Present normal inspection, full ROM and normal capillary refill; Absent calf tenderness Back Exam Back exam: Present normal inspection; Absent tenderness Neurological Exam Neurological exam: Present alert and oriented X3 Psychiatric Psychiatric exam: Present normal affect and normal mood Skin Skin exam: Present warm, dry, intact and normal color Lymphatic Lymphatic Findings: no adenopathy Medical Decision Making Medical Records Medical records reviewed: No I reviewed the patient's medical records. Screening: Per USPSTF and CDC recommendations, given the prevalence of disease in our region, it is our hospital?s policy to screen for HIV and viral Hepatitis for all patients aged 18 and over and those with ongoing risk factors. Gregory Inquiry Pt receiving controlled substance: No Lab Data Lab results reviewed: Yes I reviewed the patient's lab results.
[2024-06-15 09:13] VITALS: BP 148/80; PULSE 64; RESP 17; TEMP 36.7; O2SAT 100; BMI 28.3
[2024-06-15 10:01] VITALS: BP 138/76; PULSE 61; RESP 16; TEMP 36.7; O2SAT 100
[2024-06-15 10:03] LABS: Coronavirus 19, PCR Not Detected (NotDetected); Human Rhinovirus Not Detected (NotDetected); Influenza A, PCR Not Detected (NotDetected); Influenza B, PCR Not Detected (NotDetected); Respiratory Syncytial Virus Not Detected (NotDetected)
== END 2024-06-15 10:08 | disposition home or self-care (01) ==
PROVIDERS: Emergency Provider Nurse Practitioner Family
DX: B34.9 Viral infection, unspecified (principal)
CPT/HCPCS: 87631; 99213; G0381

== ENCOUNTER 2024-07-30 16:30 | Outpatient (CLI) | payer OTHER, SELFPAY ==
[2024-07-30 20:44] LABS: Coronavirus 19, PCR Not Detected (NotDetected); Human Rhinovirus Not Detected (NotDetected); Influenza A, PCR Not Detected (NotDetected); Influenza B, PCR Not Detected (NotDetected); Respiratory Syncytial Virus Not Detected (NotDetected)
== END 2024-07-30 23:59 | disposition home or self-care (01) ==
LOC: LAB.DROPOF 07-31 13:04
PROVIDERS: PCP Nurse Practitioner; Visit Provider Nurse Practitioner
DX: B34.9 Viral infection, unspecified (principal); Z20.822 Contact with and (suspected) exposure to COVID-19; Z20.828 Contact with and (suspected) exposure to other viral communicable diseases
CPT/HCPCS: 87631

== ENCOUNTER 2024-08-15 18:02 | Emergency (ER) | payer OTHER, SELFPAY ==
[2024-08-15 18:10] LABS: Microscopic, Urine URINE MICROSCOPIC (MICROSCOPIC)
[2024-08-15 18:12] LABS: Appearance,Urine CLEAR (Clear); Bilirubin,Urine Negative (Negative); Blood, Urine Negative (Negative); Color,Urine YELLOW (Yellow); Glucose,Urine (UA) Negative (Negative); Ketones,Urine Negative (Negative); Leukocyte Esterase,Urine 1+ (Negative); Nitrate,Urine Negative (Negative); Protein,Urine Negative (Negative); Specific Gravity, Urine 1.015 (1.005-1.030); Urobilinogen,Urine 0.2 EU/dl (0.2)
[2024-08-15 18:16] VITALS: BP 158/85; PULSE 114; RESP 18; TEMP 36.5; O2SAT 99; BMI 29.9
[2024-08-15 18:28] LABS: Bacteria,Urine Trace /lpf
--- NOTE | 2024-08-15 19:14 | HMH.EDGENADL ---
Discharge Plan Disposition Patient Disposition: Home, Self-Care Chief Complaint: Urogenital-Female Prescriptions Prescriptions: No Action No Known Home Medications Referrals Follow up/Referrals: Provider,Referral, MD [Primary Care Provider] - See instructions Activity Restrictions/Add. Instructions Additional Instructions/Restrictions: Maintain follow-up with your [employer] as discussed. Also maintain ultrasound appointment as discussed. Call your family doctor to establish care for this visit to the emergency department and schedule follow-up within 48 hours to ensure improvement. If you have any worsening of your condition or any other concerning signs or symptoms, return to the emergency department or your primary care doctor for further evaluation. Clinical Impressions Clinical Impression: Abdominal pain Instructions Patient Instructions: DI for Urinary Tract Infection (UTI), DI for Urinary Tract Infection in Children Print Language Print Language: Armenian Discharge ED Provider: Ben De Los Santos General Adult HPI General Chief complaint: Urogenital-Female Stated complaint: abd pain, pain when urinating, 33 wks antepartum Time Seen by Provider: 08/15/24 18:08 Mode of Arrival: Ambulatory Source of Information: Patient Description of Symptoms (Recalled from ER Triage Doc. by RN): PT C/O LEFT SIDED BACK PAIN AND LEFT LOWER ABDOMINAL PAIN THAT BEGAN ABOUT A MONTH AGO. PT REPORTS IT GOT WORSE ABOUT 2 WEEKS AGO AND CONTINUES TO GET WORSE. PT REPORTS SHE HAS A BURNING PAIN WHILE URINATING AND HAS ITCHING AND DISCHARGE. PT HX OF YEAST INFECTIONS. History of Present Illness HPI narrative: Please note that above description of symptoms, in this electronic medical record under categorization of recalled from ER triage doctor by RN are reflective of an initial nursing assessment, however, is not reflective of my full history and physical exam that was personally taken and clarified. Consequentially, this preceding description of symptoms, which may include the patient's categorized chief complaint in the EMR, do not reflect my personal clinical impression, and the ultimate description of history of present illness and patient stated complaints should be deferred to this section of the note. Unless stated otherwise or congruent with this section of the note, additional signs, symptoms, or incongruence should be interpreted as inaccurate with my clinical impression. Related Data Home Medications ?Medication ?Instructions ?Recorded ?Confirmed No Known Home Medications 07/30/24 07/30/24 Allergies Allergy/AdvReac Type Severity Reaction Status Date / Time Penicillins Allergy Severe Anaphylaxis Verified 07/30/24 16:24 [facility] Disclaimer: The information contained in this section may have been updated after the patient was seen, as this information can be updated by other users. Medical History (Updated 08/15/24 @ 20:16 by Ben De Los Santos MD) Viral syndrome Surgical History H/O wisdom tooth extraction H/O adenoidectomy Hx of tonsillectomy Family History Other No significant family history Social History Smoking Status: Never smoker alcohol intake: never substance use type: denies use current occupational status: employed Travel in the last 8 weeks: None household members: family housing: house Have you lived/traveled outside [place] in past 30 days?: No Contact w/someone who lives/traveled outside [place] past 30 days?: No Exposure to someone with infectious disease in past 14 days?: No Do you have a fever (greater than 100.4 F or 38 C)?: No Have you tested positive for COVID-19: No Exposed to someone with COVID-19 in past 14 days?: No Do you have a sore throat?: No Do you have a cough?: No Do you have any weakness?: No Do you have any diarrhea?: No Are you experiencing any unusual bleeding?: No Do you have any muscle aches/pain?: No Do you have any abdominal pain?: No Are you experiencing loss of taste or smell?: No Other Medical History Have you received the Flu Vaccine for this season: Yes Have you received the Pneumonia Vaccine: No ROS Obtained: Yes All systems reviewed & no additional complaints except as documented Physical Exam General General appearance: alert Head Head exam: atraumatic and normocephalic Eye Eye exam: Present normal appearance, PERRL and EOMI Neck Neck exam: Present normal inspection, full ROM and trachea midline Respiratory Respiratory exam: Absent respiratory distress, wheezes, stridor, accessory muscle use or prolonged expiratory phase Cardiovascular Cardiovascular exam: Present other (Pulses equal symmetric in upper and lower extremities) Abdominal Exam Abdominal exam: Present soft; Absent distention, tenderness or pulsatile mass Extremities Exam Extremities exam: Absent edema Neurological Exam Neurological exam: Present alert, oriented X3 and CN II-XII intact; Absent motor sensory deficit Skin Skin exam: Present warm and dry; Absent diaphoresis or erythema Medical Decision Making Medical Records Medical records reviewed: Yes I reviewed the patient's medical records. Screening: Per USPSTF and CDC recommendations, given the prevalence of disease in our region, it is our hospital?s policy to screen for HIV and viral Hepatitis for all patients aged 18 and over and those with ongoing risk factors. Gregory Inquiry Pt receiving controlled substance: No Gregory was queried for this patient: No Vital Signs: 08/15/24 18:16 Temperature 97.7 F Temperature Source Oral Pulse Rate [Right] 114 H Respiratory Rate 18 Blood Pressure [Right Arm] 158/85 H Blood Pressure Mean [Right Arm] 109 Blood Pressure Source [Right Arm] Automatic Cuff Blood Pressure Position [Right Arm] Supine 02 Sat by Pulse Oximetry 99 Oxygen Delivery Method Room Air Lab Data Lab Results 08/15/24 18:06: Urine Color Yellow, Urine Appearance Clear, Urine pH 6.0, Ur Specific [place] 1.015, Urine Protein Negative, Urine Glucose (UA) Negative, Urine Ketones Negative, Urine Blood Negative, Urine Nitrate Negative, Urine Bilirubin Negative, Urine Urobilinogen 0.2, Ur Leukocyte Esterase 1+ A, Urine RBC None, Urine WBC 5-10, Ur Squamous Epith Cells 3-5, Urine Bacteria Trace 08/15/24 19:31: WBC 11.6 H, RBC 4.33, Hgb 10.8 L, Hct 33.8 L, MCV 78.1 L, MCH 24.9 L, MCHC 32.0, RDW 13.5, Plt Count 267, MPV 11.3 H, Neut % (Auto) 67.7, Lymph % (Auto) 23.5, Wolfe % (Auto) 4.8, Eos % (Auto) 1.0, Baso % (Auto) 0.3, Neut # (Auto) 7.8, Lymph # (Auto) 2.7, Wolfe # (Auto) 0.6, Eos # (Auto) 0.1, Baso # (Auto) 0.0, Sodium 135 L, Potassium 4.3, Chloride 106, Carbon Dioxide 23, Anion Gap 10.3, BUN 8, Creatinine 0.50 L, Estimated Creat Clear 227, Estimated GFR 154, Est GFR ( Amer) 187, Glucose 81, Calcium 8.6, Total Bilirubin 0.5, AST 34, ALT 17, Alkaline Phosphatase 166 H, Total Protein 6.9, Albumin 3.3 L, Globulin 3.6 H, Albumin/Globulin Ratio 0.9 L, Lipase 84 08/15/24 19:31 08/15/24 19:31 Orders (Tests/Meds): ED MEDICATIONS Discontinued Medications Generic Name Dose Route Start Last Admin Trade Name Ambar PRN Reason Stop Dose Admin Acetaminophen 1,000 mg 08/15/24 18:37 08/15/24 19:34 Acetaminophen 1,000mg/100ml Vial IV 08/15/24 18:38 1,000 mg ONCE ONE Administration ORDERS Category Date Time Status POCUS Point of Care (ER Only) Stat Exams 08/15/24 18:37 Ordered CBC w/Auto Diff [Complete Blood Count Auto Diff] Stat Lab 08/15/24 19:31 Completed CMP [Comprehensive Metabolic Panel] Stat Lab 08/15/24 19:31 Results HCG,Quantitative Stat Lab 08/15/24 19:31 Results Lipase Stat Lab 08/15/24 19:31 Results UA [Urinalysis and Microscopic] Stat Lab 08/15/24 18:06 Completed Urine Culture Stat Micro 08/15/24 18:06 Received Medical Decision Narrative: 23-year-old female presenting with left-sided abdominal pain. Currently 33 weeks . Apparently this been going on for a month. She states that she is following with [employer], supposed to get an ultrasound to look at her kidney because she had some blood in her urine recently. Concern for kidney stones. No urinary symptoms, but she states that pain is made better by urinating, worse in between episodes of urinating. Nothing in particular makes it better or worse. It is generally not there, but flares up and becomes 8 out of 10. Has been taking Tylenol and it seems to help. No fevers or chills or overt flank pain. Still feeling baby move, no vaginal bleeding, discharge, or gushes of fluid. History was obtained via conversation with patient. On arrival, patient hemodynamically stable, alert, oriented x4, appropriate, GCS 15, moving all extremities spontaneously, pupils equal and reactive to light. Full physical exam performed and significant for clinically well-appearing female no acute distress. Abdomen soft, nontender, nondistended, no flank tenderness, pain not elicited by external physical exam maneuvers. Differential includes PUD, gastritis, enteritis, gastroenteritis, pancreatitis, SBO, colitis, diverticulitis, nephrolithiasis, UTI, , cholecystitis, choledocholithiasis, appendicitis, hepatitis, torsion, aortic pathology, mesenteric ischemia among others. Patient placed on continuous cardiac monitoring and continuous pulse ox with initial blood pressure 158/85, heart rate 114, saturation 99% on room air. Patient was given 1 g of Tylenol for symptomatic management and correction of underlying abnormalities. Workup independently interpreted and significant for nonactionable hematologic workup, urinalysis negative, lipase negative. On independent interpretation of imaging, patient has no evidence of hydronephrosis or nephrolithiasis on bedside [id number] ultrasound. Bedside [id number] ultrasound also with healthy intrauterine with heart rate in the 140s. On reevaluation, patient still resting the same as she was on arrival, little bit better after Tylenol. Given patient presentation, workup, history, this most likely represents abdominal pain in , likely benign. Recommend she follow-up with her [employer], she voiced her understanding. Because patient at baseline without signs or symptoms of clinical decompensation, deemed appropriate for discharge. Results were relayed to patient who voiced understanding and were agreeable to outpatient management and follow up. I discussed my clinical impression with patient and answered all questions. At this time, the evidence for any other entities in the differential is insufficient to warrant any further testing or ED observation. This was explained as well. Advisory was given that persistent or worsening symptoms require further evaluation. I confirmed the understanding of this discussion. School Photographer disclaimer Much of this encounter note is an electronic delivery technician spoken language to printed text. Electronic delivery technician of the spoken language may permit errors. Although I have reviewed the note, some errors may still exist. Procedures Limited Ultrasound Indication:: Limited OB ultrasound Indication: IUP, abdominal pain Identified structures: -Uterus -Left adnexa -Right adnexa -Pouch of Dre Findings: Uterus: Definitive IUP with FHR in the 140s Right adnexa: -Normal Left adnexa: -Normal Cul de sac: -free fluid absent Impression: -IUP: Present with fhr in the 140s -Ectopic : Absent -Free fluid: Absent Images were saved to permanent archive The study was technically adequate CPT Transabdominal: 32376-66 This study was performed by me, and I personally interpreted all images/videos. Based on my clinical judgement, these images were adequate and did not necessitate further imaging Views:: Limited renal ultrasound Indication: A focused ultrasound of the kidneys was performed to evaluate for hydronephrosis and nephrolithiasis. The ultrasound was performed with the following indications, as noted in the H&P: Left flank and abdominal Identified structures: Left kidney -Bladder Findings: Normal left kidney, normal bladder, no evidence of hydronephrosis or calculi Impression: -Normal limited renal ultrasound, no evidence of hydronephrosis or calculi Images were saved to permanent archive The study was technically adequate CPT: 92168-01 This study was performed by me, and I personally interpreted all images/videos. Based on my clinical judgement, these images were adequate and did not necessitate further imaging. Critical Care Critical Care Time Critical Care Time: No
[2024-08-15] MEDS: ACETAMINOPHEN 1,000MG/100ML VIAL 1000 MG IV (19:34)
[2024-08-15 19:38] LABS: Basophils % 0.3 % (0.1-2.0); Eosinophils # 0.1 K/mm3 (0.0-0.4); Hematocrit 33.8 % (37.0-47.0); Hemoglobin 10.8 g/dL (12.2-16.2); Lymphocytes # 2.7 K/mm3 (0.7-4.5); Lymphocytes % 23.5 % (10-50); Mean Corpuscular Hemoglobin 24.9 pg (27.0-31.2); Mean Corpuscular Volume 78.1 fl (81-99); Mean Platelet Volume 11.3 fl (7.4-10.4); Monocytes # 0.6 K/mm3 (0.1-1.0); Monocytes % 4.8 % (1.7-9.3); Neutrophils # 7.8 K/mm3 (1.8-7.8); Neutrophils % 67.7 % (37.0-80.0); Platelet Count 267 K/mm3 (142-424); Red Blood Count 4.33 M/mm3 (4.20-5.40); Red Cell Distribution Width 13.5 % (11.5-17.5); White Blood Count 11.6 K/mm3 (4.8-10.8)
[2024-08-15 19:43] LABS: Albumin Level 3.3 g/dl (3.5-5.0); Chloride 106 mmol/L (98-107); Potassium 4.3 mmoL/L (3.5-5.1); Sodium 135 mmol/L (136-145)
[2024-08-15 19:46] LABS: Alanine Aminotransferase 17 U/L (12-78); Albumin/Globulin Ratio 0.9 (1.1-1.8); Alkaline Phosphatase 166 U/L (38-126); Anion Gap 10.3 mEq/L (5-15); Aspartate Amino Transferase 34 U/L (14-36); Bilirubin,Total 0.5 mg/dl (0.2-1.3); Blood Urea Nitrogen 8 mg/dl (7-17); Carbon Dioxide 23 mmol/L (22.0-30.0); Creatinine Clearance Estimated 227 mL/min (50-200); Estimated Glomerular Filt Rate 154 ml/min (>60); GFR (African American) 187 ML/MIN (>60); Globulin 3.6 g/dL (1.3-3.2); Lipase 84 U/L (23-300); Total Protein,Serum 6.9 g/dl (6.3-8.2)
[2024-08-15 19:47] LABS: Calcium 8.6 mg/dl (8.4-10.2); Glucose 81 mg/dl (74-100)
[2024-08-15 20:17] VITALS: BP 147/87; PULSE 92; RESP 20; TEMP 36.7; O2SAT 98
[2024-08-15 20:38] LABS: HCG,Quantitative 28954 mIU/ml (0-5.42)
--- OUTSIDE RECORDS SUMMARY | 2024-08-20 19:50 | XMS_ITS | Continuity of Care Document ---
Author Organization [facility] Phone Care Team Providers Care Ring Stamper Name Role Phone JUAQUIN MURDOCK Admitting KADE NICOLE Primary Care KADE NICOLE Unavailable JUAQUIN MURDOCK Primary Attending ALLERGIES AND ADVERSE REACTIONS ALLERGIES AND ADVERSE REACTIONS Code System Allergy Substance Adverse Reaction Date Reaction (Severity) Comment Status Reported By Updated By [id number] RXNorm Penicillin Rash (Severe) Shock active [id number] on August 17, 2024 8:24:35 PM UT FAMILY HISTORY RELATION: Father Status: LIVING SNOMED-CT Diagnosis Age At Onset [id number] Congestive heart failure RELATION: Mother Status: LIVING SNOMED-CT Diagnosis Age At Onset Information not available RESULTS Patient: PERCY Dotson Date of : 2000 LABORATORY RESULTS ORDER 100: CBC AUTO W DIFF ( LOINC: 73369-5) ORDER DATE: August 17, 2024 8:22:00 PM UTC Specimen Source: EDTA Specimen Type: Blood specime n with EDTA PERFORMING LAB: [address] [id number] Result Comment: Final Result Date: August 17, 2024 9:28:00 PM UTC (TECH: ADB) LOINC TEST FLAG RESULT REFERENCE RANGE UPDA WILLIAM BY 6690-2 Leukocytes [#/volume] in Blood by Automated count N 10.5 K/ul 4.0 K/ul - 10.5 K/ul August 17, 2024 9:28:00 PM UTC (TECH: ADB) 789-8 Erythrocytes [#/volume] in Blood by Automated count N 4.4 M/mm3 4.2 M/mm3 - 6.4 M/mm3 August 17, 2024 9:28:00 PM UTC (TECH: ADB) 718-7 Hemoglobin [Mass/volume] in Blood L 10.8 gm/dl 12.5 gm/dl - 16.0 gm/dl August 17, 2024 9:28:00 PM UTC (TECH: ADB) 81414-6 Hematocrit [Volume Fraction] of Blood L 34.2 % 37.0 % - 47.0 % August 17, 2024 9:28:00 PM UTC (TECH: ADB) 787-2 Erythrocyte mean corpuscular volume [Entitic volume] by Automated count L 77.2 fl 78 fl - 100 fl August 17, 2024 9:28:00 PM UTC (TECH: ADB) 785-6 Erythrocyte mean corpuscular hemoglobin [Entitic mass] by Automated count L 24.4 pg 27 pg - 31 pg August 17, 2024 9:28:00 PM UTC (TECH: ADB) 786-4 Erythrocyte mean corpuscular hemoglobin concentration [Mass/volume] by Automated count L 31.6 g/dl 32 g/dl - 36 g/dl August 17, 2024 9:28:00 PM UTC (TECH: ADB) 74410-5 Erythrocyte distribution width [Ratio] N 13.7 % 11.5 % - 14.0 % August 17, 2024 9:28:00 PM UTC (TECH: ADB) 777-3 Platelets [#/volume] in Blood by Automated count N 245 K/ul 150 K/ul - 450 K/ul August 17, 2024 9:28:00 PM UTC (TECH: ADB) 11571-0 Platelet mean volume [Entitic volume] in Blood by Automated count H 11.6 fl 6 fl - 9.5 fl August 17, 2024 9:28:00 PM UTC (TECH: ADB) 95157-6 Neutrophils/100 leukocytes in Blood H 72.7 % 43 % - 65 % August 17 9:28:00 PM UTC (TECH: ADB) 736-9 Lymphocytes/100 leukocytes in Blood by Automated count L 20.1 % 20.5 % - 45.5 % August 17, 2024 9:28:00 PM UTC (TECH: ADB) 5905-5 Monocytes/100 leukocytes in Blood by Automated count L 4.6 % 5.5 % - 11.7 % August 17, 2024 9:28:00 PM UTC (TECH: ADB) 713-8 Eosinophils/100 leukocytes in Blood by Automated count L 0.4 % 0.9 % - 2.9 % August 17, 2024 9:28:00 PM UTC (TECH: ADB) 706-2 Basophils/100 leukocytes in Blood by Automated count N 0.3 % 0.2 % - 1.0 % August 17, 2024 9:28:00 PM UTC (TECH: ADB) 55538-2 Immature granulocytes/100 leukocytes in Blood by Automated count H 1.9 % 0.0 % - 0.8 % August 17, 2024 9:28:00 PM UTC (TECH: ADB) 30251-8 Nucleated cells [#/volume] in Blood N 0.0 % August 17 9:28:00 PM UTC (TECH: ADB) 37985-7 Neutrophils [#/volume] in Blood H 7.7 K/uL 2.2 K/uL - 4.8 K/uL August 17, 2024 9:28:00 PM UTC (TECH: ADB) 731-0 Lymphocytes [#/volume] in Blood by Automated count N 2.1 CELL/MCL 1.3 CELL/MCL - 2.9 CELL/MCL August 17, 2024 9:28:00 PM UTC (TECH: ADB) 742-7 Monocytes [#/volume] in Blood by Automated count N 0.5 CELL/MCL 0.3 CELL/MCL - 0.8 CELL/MCL August 17, 2024 9:28:00 PM UTC (TECH: ADB) 711-2 Eosinophils [#/volume] in Blood by Automated count N 0.0 CELL/MCL 0 CELL/MCL - 0.2 CELL/MCL August 17, 2024 9:28:00 PM UTC (TECH: ADB) 704-7 Basophils [#/volume] in Blood by Automated count N 0.0 CELL/MCL 0.0 CELL/MCL - 1.0 CELL/MCL August 17, 2024 9:28:00 PM UTC (TECH: ADB) 28317-9 Immature granulocytes [#/volume] in Blood N 0.20 K/ul August 17 9:28:00 PM UTC (TECH: ADB) 93837-1 Nucleated cells [#/volume] in Blood N 0.00 K/uL August 17 9:28:00 PM UTC (TECH: ADB) 94606-1 Manual Differential panel - Blood N NO August 17, 2024 9:28:00 PM UTC (TECH: ADB) ORDER 200: COMP METABOLIC PA BURAK (LOINC: 61249-1) ORDER DATE: August 17, 2024 8:22:00 PM UTC Specimen Source: PLASMA Specimen Type: Plasma specim en PERFORMING LAB: [address] [id number] Result Comment: Final Result Date: August 17, 2024 9:19:00 PM UT (TECH: DTR) LOINC TEST FLAG RESULT REFERENCE RANGE UPDA WILLIAM BY 2951-2 Sodium [Moles/volume ] in Serum or Plasma N 137 mmol/L 136 mmol/L - 145 mmol/L August 17, 2024 9:15:00 PM UTC (TECH: DTR) 2823-3 Potassium [Moles/volume] in Serum or Plasma L 3.5 mmol/L 3.6 mmol/L - 5.0 mmol/L August 17, 2024 9:15:00 PM UTC (TECH: DTR) 2075-0 Chloride [Moles/volume] in Serum or Plasma N 101 mmol/L 98 mmol/L - 107 mmol/L August 17, 2024 9:15:00 PM UTC (TECH: DTR) 8-9 Carbon dioxide, tota l [Moles/volume] in Serum or Plasma N 22.4 mmol/L 21.0 mmol/L - 32.0 mmol/L August 17, 2024 9:15:00 PM UTC (TECH: DTR) 95306-8 Anion gap in Blood N 17.1 A pril 2024 9:15:00 PM UTC (TECH: DTR) 2345-7 Glucose [Mass/volume ] in Serum or Plasma H 123 mg/dl 70 mg/dl - 120 mg/dl August 17, 2024 9:15:00 PM UTC (TECH: DTR) 6299-2 Urea nitrogen [Mass/volume] in Blood N 7 mg/dL 7 mg/dL - 18 mg/dL August 17, 2024 9:15:00 PM [facility] (TECH: DTR) 25250-4 Creatinine [Moles/volume] in Blood N 0.6 mg/dL 0.6 mg/dL - 1.3 mg/dL August 17, 2024 9:15:00 PM [facility] (TECH: DTR) 36933-5 Glomerular filtratio n rate/1.73 sq M.predicted by Creatinine-based formula (MDRD) N 130 mlpermin 60 mlpermin August 17, 2024 9:15:00 PM [facility] (TECH: DTR) 09055-9 Osmolality of Serum or Plasma by calculated by sum of electrolytes N 284 mosm/kg 275 mosm/kg - 301 mosm/kg August 17, 2024 9:15:00 PM [facility] (TECH: DTR) 2885-2 Protein [Mass/volume ] in Serum or Plasma N 6.4 g/dl 6.4 g/dl - 8.2 g/dl August 17, 2024 9:19:00 PM [facility] (TECH: DTR) 1751-7 Albumin [Mass/volume ] in Serum or Plasma L 2.3 g/dl 3.4 g/dl - 5.0 g/dl August 17, 2024 9:19:00 PM UT (TECH: DTR) 2336-6 Globulin [Mass/volum e] in Serum N 4.1 August 17, 2024 9:19:00 PM [facility] (TECH: DTR) 1759-0 Albumin/Globulin [Ma ss Ratio] in Serum or Plasma L 0.6 0.7 - 2 August 17, 2024 9:19:00 PM [facility] (TECH: DTR) 26871-1 Calcium [Mass/volume ] in Serum or Plasma N 8.8 mg/dl 8.5 mg/dl - 10.5 mg/dl August 17, 2024 9:15:00 PM [facility] (TECH: DTR) 1975-2 Bilirubin.total [Mass/volume] in Serum or Plasma N 0.10 mg/dL 0.10 mg/dL - 1.00 mg/dL August 17, 2024 9:19:00 PM [facility] (TECH: DTR) 1920-8 Aspartate aminotransferase [Enzymatic activity/volume] in Serum or Plasma N 13 U/L 0 U/L - 37 U/L August 17, 2024 9:19:00 PM UTC (TECH: DTR) 1742-6 Alanine aminotransferase [Enzymatic activity/volume] in Serum or Plasma N 16 U/L 0 U/L - 65 U/L August 17, 2024 9:19:00 PM UTC (TECH: DTR) 6768-6 Alkaline phosphatase [Enzymatic activity/volume] in Serum or Plasma H 198 U/L 46 U/L - 116 U/L August 17, 2024 9:19:00 PM UTC (TECH: DTR) ORDER 300: LIPASE (LOINC: 30 40-3) ORDER DATE: August 17, 2024 8:22:00 PM UTC Specimen Source: PLASMA Specimen Type: Plasma specim en PERFORMING LAB: [address] [id number] Result Comment: Final Result Date: August 17, 2024 9:19:00 PM UTC (TECH: DTR) LOINC TEST FLAG RESULT REFERENCE RANGE UPDA WILLIAM BY 3040-3 Lipase [Enzymatic activity/volume] in Serum or Plasma N 26 U/L 16 U/L - 77 U/L August 17, 2024 9:19:00 PM UTC (TECH: DTR) ORDER 500: MAGNESIUM (LOINC: 03798-5) ORDER DATE: August 17, 2024 8:22:00 PM UTC Specimen Source: PLASMA Specimen Type: Plasma specim en PERFORMING LAB: [address] [id number] Result Comment: Final Result Date: August 17, 2024 9:19:00 PM UTC (TECH: DTR) LOINC TEST [place] [address]-9 Magnesium [Mass/volume] in Serum or Plasma L 1.6 MG/DL 1.8 MG/DL - 2.4 MG/DL August 17, 2024 9:19:00 PM UTC (TECH: DTR) ORDER 600: TROPONIN I QUANT HIGH SENS. (LOINC: 49847-1) ORDER DATE: August 17, 2024 8:22:00 PM UTC Specimen Source: PLASMA Specimen Type: Plasma specim en PERFORMING LAB: [address] [id number] Result Comment: Final Result Date: August 17, 2024 9:41:00 PM UTC (TECH: DTR) LOINC TEST FLAG [place] [address]-5 Troponin I.cardiac [Mass/volume] in Serum or Plasma N <4 ng/L 0 ng/L - 51 ng/L August 17, 2024 9:41:00 PM UTC (TECH: DTR) ORDER 800: CREATINE KINASE C K (LOINC: 2157-6) ORDER DATE: August 17, 2024 8:24:00 PM UTC Specimen Source: PLASMA Specimen Type: Plasma specim en PERFORMING LAB: [address] [id number] Result Comment: Final Result Date: August 17, 2024 9:19:00 PM UTC (TECH: DTR) LOINC TEST FLAG RESULT REFERENCE RANGE UPDA WILLIAM BY 2157-6 Creatine kinase [Enzymatic activity/volume] in Serum or Plasma L 30 IU/l 35 IU/l - 232 IU/l August 17, 2024 9:19:00 PM UTC (TECH: DTR) LABORATORY NARRATIVE RESULTS Information is not available RADIOLOGY RESULTS Information is not available PATHOLOGY NARRATIVE RESULTS Information is not available MICROBIOLOGY RESULTS No Micro Labs/Results Exist for Patient BLOOD ADMIN RESULTS Information is not available MEDICATIONS HOME MEDICATIONS Status RXNORM NDC Medication Dose Route Frequency Dates Comments Reported By Updated By Active [id number] 8301 ibuprofen (MOTRIN) 600.0 MG ORAL Q6HPRN Last Dose: [id number] on August 17, 2024 9:46:26 PM UT DISCHARGE MEDICATIONS Status RXNORM NDC Medication Dose Route Frequency Dates Comments Physician Updated By No Discharge Medication Info rmation Available INPATIENT MEDICATIONS Status RXNORM NDC Medication Dose Route Frequency Rat e Quantity Dates Comments Physician Updated By No Inpatient Medication Info rmation Available SOCIAL HISTORY SOCIAL HISTORY SNOMED-CT Social History Element Description Effective Dates Offered Cessation Comment UpdatedBy [id number] Current Tobacco smoking status Never Smoked [id number] on August 17, 2024 8:24:44 PM [place] [id number] Historical Tobacco smoking status Current Every Day Smoker No [id number] on May 01, 2023 12:51:22 AM UT SOCIAL HISTORY - Gender Sex: Female SOCIAL HISTORY - Status : status i nformation is not available Intention in Next Year: intention information is not available SOCIAL HISTORY - Sexual Behavior Sexual Orientation Gender Identity SNOMED-CT Description SNO MED -CT Description Activity Level No of Partners Partner Type UpdatedBy Information is not available VITAL SIGNS PATIENT VITAL SIGNS This section displays the mo st recent value for each vital sign as of August 19, 2024 7:20:37 AM UTC Loinc Code Vital Sign Activity Date Result Updated By 8310-5 Body temperature August 17, 2024 7:55:00 PM UTC 99.9 [degF] [id number] on August 17, 2024 8:22:16 PM UTC 8462-4 Diastolic blood pressure August 17, 2024 8:31:00 PM UTC 62.0 mm[Hg] [id number] on August 17, 2024 8:55:11 PM UTC 8867-4 Heart rate August 17, 2024 10:15:00 PM UTC 110 /min [id number] on August 17, 2024 10:18:34 PM UTC 33936-9 Oxygen saturation in Arterial blood by Pulse oximetry August 17, 2024 10:15:00 PM UTC 99.0 % [id number] on August 17, 2024 10:18:34 PM UTC 9279-1 Respiratory rate August 17, 2024 10:15:00 PM UTC 18 /min [id number] on August 17, 2024 10:18:34 PM UTC 8480-6 Systolic blood pressure August 17, 2024 8:31:00 PM UTC 135.0 mm[Hg] [id number] on August 17, 2024 8:55:11 PM UT PEDIATRIC GROWTH CHART - VITAL SIGNS This section displays Head C ircumference Percentile, Weight for Length Percentile and BMI Percentile Loinc Code Pediatric Measure Age (Months) Result Updat ed By No Pediatric Growth Chart Pe rcentile Information Available. HEALTH CONCERNS Problems Concern Status Health Concern problem infor mation not available. Smoking Status Status Years Used Consumed packs p er day Health Concern smoking histo ry information not available. Family History Concern Status Health Concern family histor y information not available. ENCOUNTERS ENCOUNTER INFORMATION Reason for Visit FLU SYMPTOMS 33 WEEK S Admission August 17, 2024 8:08:00 PM UTC [address] [id number] Discharge August 17, 2024 10:20:00 PM UTC DI SCHARGED TO HOME OR SELF CARE ENCOUNTER DIAGNOSES Notes information is not dal[place] ilable. Code System Diagnosis Onset Date Diagnosis information is not available. ABSTRACT DIAGNOSES Code System Diagnosis Updated By O99.891 ICD10 OTHER SPECIFIED DISEASES AND CONDITIONS COMPLICATING [id number] on August 19, 2024 7:19:30 AM UT R53.1 ICD10 WEAKNESS [id number] on Apri 2024 7:19:30 AM UTC R07.9 ICD10 CHEST PAIN, UNSPECIFIED [id number] on August 19, 2024 7:19:30 AM UT O99.513 ICD10 DISEASES OF THE RESPIRATORY SYSTEM COMPLICATING , THIRD TRIMESTER [id number] on August 19, 2024 7:19:30 AM UT J11.1 ICD10 INFLUENZA DUE TO UNIDENTIFIED INFLUENZA VIRUS WITH OTHER RESPIRATORY MANIFESTATIONS [id number] on August 19, 2024 7:19:30 AM UT Z3A.33 ICD10 33 WEEKS GESTATION OF PREGNA NCY [id number] on August 19, 2024 7:19:30 AM UT Z88.0 ICD10 ALLERGY STATUS TO PENICILLIN [id number] on August 19, 2024 7:19:30 AM [facility] CARE TEAM Care Ring Stamper Role JUAQUIN MURDOCK Admitting KADE NICOLE Primary Care KADE NICOLE Referring JUAQUIN MURDOCK Primary Attending CARE TEAM CARE relocation director Role on Team Status Start Date End Date Update d By BONNIE BRAUN Referring normal August 17, 2024 8:20:50 PM UT August 17, 2024 10:20:00 PM UT [id number] on August 17, 2024 8:20:50 PM UT MATHIEU Michaels Attending normal August 17 8:20:50 PM UT August 17, 2024 10:20:00 PM UT [id number] on August 17, 2024 8:20:50 PM [facility] MATHIEU Michaels Admitting normal August 17 8:20:50 PM UT August 17, 2024 10:20:00 PM UT [id number] on August 17, 2024 8:20:50 PM [facility] BONNIE BRAUN PCP normal August 17, 2024 8:09:04 PM UT August 17, 2024 10:20:00 PM [facility] [id number] on August 17, 2024 8:20:50 PM [facility]
--- OUTSIDE RECORDS SUMMARY | 2024-08-20 19:50 | XMS_ITS | Continuity of Care Document ---
Author Organization [facility] Phone Care Team Providers Care Hand Dry Cleaner Name Role Phone MYRNA FONTANEZ Primary Attending Unavailable MYRNA FONTANEZ Admitting Unavailable KADE NICOLE Primary Care KADE NICOLE Unavailable ALLERGIES AND ADVERSE REACTIONS ALLERGIES AND ADVERSE REACTIONS Code System Allergy Substance Adverse Reaction Date Reaction (Severity) Comment Status Reported By [place] By [id number] RXNorm Penicillin Rash (Severe) Shock active [id number] on August 05, 2024 1:46:31 PM UT FAMILY HISTORY RELATION: Father Status: LIVING SNOMED-CT Diagnosis Age At Onset [id number] Congestive heart failure RELATION: Mother Status: LIVING SNOMED-CT Diagnosis Age At Onset Information not available RESULTS Patient: PERCY Dotson Date of : 2000 LABORATORY RESULTS ORDER 100: CBC AUTO W DIFF ( LOINC: 52257-4) ORDER DATE: August 05, 2024 1:52:00 PM UT Specimen Source: EDTA Specimen Type: Blood specime n with EDTA PERFORMING LAB: [address] [id number] Result Comment: Final Result Date: August 05, 2024 2:08:00 PM UT (TECH: JNJ) LOINC TEST FLAG RESULT REFERENCE RANGE UPDA WILLIAM BY 6690-2 Leukocytes [#/volume] in Blood by Automated count H 11.0 K/ul 4.0 K/ul - 10.5 K/ul August 05, 2024 2:08:00 PM UT (TECH: JNJ) 789-8 Erythrocytes [#/volume] in Blood by Automated count N 4.3 M/mm3 4.2 M/mm3 - 6.4 M/mm3 August 05, 2024 2:08:00 PM UT (TECH: JNJ) 718-7 Hemoglobin [Mass/volume] in Blood L 10.4 gm/dl 12.5 gm/dl - 16.0 gm/dl August 05, 2024 2:08:00 PM UTC (TECH: [employer] 90855-8 Hematocrit [Volume Fraction] of Blood L 33.2 % 37.0 % - 47.0 % August 05 2:08:00 PM UTC (TECH: [employer] 787-2 Erythrocyte mean corpuscular volume [Entitic volume] by Automated count L 77.8 fl 78 fl - 100 fl August 05, 2024 2:08:00 PM UTC (TECH: [employer] 785-6 Erythrocyte mean corpuscular hemoglobin [Entitic mass] by Automated count L 24.4 pg 27 pg - 31 pg August 05, 2024 2:08:00 PM UTC (TECH: [employer] 786-4 Erythrocyte mean corpuscular hemoglobin concentration [Mass/volume] by Automated count L 31.3 g/dl 32 g/dl - 36 g/dl August 05, 2024 2:08:00 PM UTC (TECH: [employer] 05119-0 Erythrocyte distribution width [Ratio] N 13.7 % 11.5 % - 14.0 % August 05, 2024 2:08:00 PM UTC (TECH: [employer] 777-3 Platelets [#/volume] in Blood by Automated count N 256 K/ul 150 K/ul - 450 K/ul August 05, 2024 2:08:00 PM UTC (TECH: [employer] 90419-1 Platelet mean volume [Entitic volume] in Blood by Automated count H 11.5 fl 6 fl - 9.5 fl August 05, 2024 2:08:00 PM UTC (TECH: [employer] 82593-0 Neutrophils/100 leukocytes in Blood H 70.2 % 43 % - 65 % August 05 2:08:00 PM UTC (TECH: swabrJ) 736-9 Lymphocytes/100 leukocytes in Blood by Automated count N 22.5 % 20.5 % - 45.5 % August 05 2:08:00 PM UTC (TECH: [employer] 5905-5 Monocytes/100 leukocytes in Blood by Automated count L 5.0 % 5.5 % - 11.7 % August 05 2:08:00 PM UTC (TECH: [employer] 713-8 Eosinophils/100 leukocytes in Blood by Automated count L 0.3 % 0.9 % - 2.9 % August 05 2:08:00 PM UTC (TECH: [employer] 706-2 Basophils/100 leukocytes in Blood by Automated count N 0.3 % 0.2 % - 1.0 % August 05 2:08:00 PM UTC (TECH: [employer] 55075-3 Immature granulocytes/100 leukocytes in Blood by Automated count H 1.7 % 0.0 % - 0.8 % August 05 2:08:00 PM UTC (TECH: [employer] 57981-6 Nucleated cells [#/volume] in Blood N 0.0 % August 05 2:08:00 PM UTC (TECH: [employer] 64337-2 Neutrophils [#/volume] in Blood H 7.7 K/uL 2.2 K/uL - 4.8 K/uL August 05, 2024 2:08:00 PM UTC (TECH: [employer] 731-0 Lymphocytes [#/volume] in Blood by Automated count N 2.5 CELL/MCL 1.3 CELL/MCL - 2.9 CELL/MCL August 05, 2024 2:08:00 PM UTC (TECH: [employer] 742-7 Monocytes [#/volume] in Blood by Automated count N 0.6 CELL/MCL 0.3 CELL/MCL - 0.8 CELL/MCL August 05, 2024 2:08:00 PM UTC (TECH: [employer] 711-2 Eosinophils [#/volume] in Blood by Automated count N 0.0 CELL/MCL 0 CELL/MCL - 0.2 CELL/MCL August 05, 2024 2:08:00 PM UTC (TECH: [employer] 704-7 Basophils [#/volume] in Blood by Automated count N 0.0 CELL/MCL 0.0 CELL/MCL - 1.0 CELL/MCL August 05, 2024 2:08:00 PM UTC (TECH: [employer] 81030-2 Immature granulocytes [#/volume] in Blood N 0.19 K/ul August 05 2:08:00 PM UTC (TECH: [employer] 50287-9 Nucleated cells [#/volume] in Blood N 0.00 K/uL August 05 2:08:00 PM UTC (TECH: [employer] 96591-5 Manual Differential panel - Blood N NO August 05, 2024 2:08:00 PM UTC (TECH: swabrCindy) ORDER 900: COMP METABOLIC PA BURAK (LOINC: 16307-3) ORDER DATE: August 05, 2024 2:15:00 PM UTC Specimen Source: PLASMA Specimen Type: Plasma specim en PERFORMING LAB: [address] [id number] Result Comment: Final Result Date: August 05, 2024 3:17:00 PM UTC (TECH: [employer]) LOINC TEST FLAG RESULT REFERENCE RANGE UPDA WILLIAM BY 2951-2 Sodium [Moles/volume ] in Serum or Plasma N 138 mmol/L 136 mmol/L - 145 mmol/L August 05, 2024 3:17:00 PM UTC (TECH: [employer]) 2823-3 Potassium [Moles/volume] in Serum or Plasma L 3.5 mmol/L 3.6 mmol/L - 5.0 mmol/L August 05, 2024 3:17:00 PM UTC (TECH: [employer]) 2075-0 Chloride [Moles/volume] in Serum or Plasma N 105 mmol/L 98 mmol/L - 107 mmol/L August 05, 2024 3:17:00 PM UTC (TECH: KAC) 8-9 Carbon dioxide, tota l [Moles/volume] in Serum or Plasma N 24.0 mmol/L 21.0 mmol/L - 32.0 mmol/L August 05, 2024 3:17:00 PM UTC (TECH: [employer]) 57883-5 Anion gap in Blood N 12.5 M 2024 3:17:00 PM UTC (TECH: KAC) 2345-7 Glucose [Mass/volume ] in Serum or Plasma N 98 mg/dl 70 mg/dl - 120 mg/dl August 05, 2024 3:17:00 PM UTC (TECH: KAC) 6299-2 Urea nitrogen [Mass/volume] in Blood L 6 mg/dL 7 mg/dL - 18 mg/dL August 05, 2024 3:17:00 PM UTC (TECH: KAC) 89926-5 Creatinine [Moles/volume] in Blood N 0.6 mg/dL 0.6 mg/dL - 1.3 mg/dL August 05, 2024 3:17:00 PM UT (T3 Search: [employer]) 95523-2 Glomerular filtratio n rate/1.73 sq M.predicted by Creatinine-based formula (MDRD) N 130 mlpermin 60 mlpermin August 05, 2024 3:17:00 PM UT (T3 Search: [employer]) 85750-2 Osmolality of Serum or Plasma by calculated by sum of electrolytes N 285 mosm/kg 275 mosm/kg - 301 mosm/kg August 05, 2024 3:17:00 PM UTC (TECH: [employer]) 2885-2 Protein [Mass/volume ] in Serum or Plasma L 6.3 g/dl 6.4 g/dl - 8.2 g/dl August 05, 2024 3:17:00 PM UT (CMOSIS nv) 1751-7 Albumin [Mass/volume ] in Serum or Plasma L 2.2 g/dl 3.4 g/dl - 5.0 g/dl August 05, 2024 3:17:00 PM UT (TECH: [employer]) 2336-6 Globulin [Mass/volum e] in Serum N 4.1 August 05, 2024 3:17:00 PM UT (TECH: [employer]) 1759-0 Albumin/Globulin [Ma ss Ratio] in Serum or Plasma L 0.5 0.7 - 2 August 05, 2024 3:17:00 PM UT (T3 Search: [employer]) 37221-9 Calcium [Mass/volume ] in Serum or Plasma N 8.5 mg/dl 8.5 mg/dl - 10.5 mg/dl August 05, 2024 3:17:00 PM UT (TECH: [employer]) 1975-2 Bilirubin.total [Mass/volume] in Serum or Plasma N 0.10 mg/dL 0.10 mg/dL - 1.00 mg/dL August 05, 2024 3:17:00 PM UT (TECH: [employer]) 1920-8 Aspartate aminotransferase [Enzymatic activity/volume] in Serum or Plasma N 11 U/L 0 U/L - 37 U/L August 05, 2024 3:17:00 PM UT (CMOSIS nv) 1742-6 Alanine aminotransferase [Enzymatic activity/volume] in Serum or Plasma N 15 U/L 0 U/L - 65 U/L August 05, 2024 3:17:00 PM UT (CMOSIS nv) 6768-6 Alkaline phosphatase [Enzymatic activity/volume] in Serum or Plasma H 154 U/L 46 U/L - 116 U/L August 05, 2024 3:17:00 PM UT (T3 Search: [employer]) ORDER 1000: MAGNESIUM (LOINC : 50314-9) ORDER DATE: August 05, 2024 2:16:00 PM UT Specimen Source: PLASMA Specimen Type: Plasma specim en PERFORMING LAB: [address] [id number] Result Comment: Final Result Date: August 05, 2024 3:17:00 PM UT (T3 Search: [employer]) LOINC TEST FLAG RESULT [place] [address]-5 Magnesium [Mass/volume] in Serum or Plasma L 1.5 MG/DL 1.8 MG/DL - 2.4 MG/DL August 05, 2024 3:17:00 PM UT (T3 Search: [employer]) ORDER 1100: TROPONIN I QUANT HIGH SENS. (LOINC: 95507-6) ORDER DATE: August 05, 2024 2:17:00 PM UT Specimen Source: PLASMA Specimen Type: Plasma specim en PERFORMING LAB: [address] [id number] Result Comment: Final Result Date: August 05, 2024 3:17:00 PM UT (T3 Search: [employer]) LOINC TEST FLAG [place] [address]-6 Troponin I.cardiac [Mass/volume] in Serum or Plasma N <4 ng/L 0 ng/L - 51 ng/L August 05, 2024 3:17:00 PM UT (TECH: [employer]) LABORATORY NARRATIVE RESULTS Information is not available RADIOLOGY RESULTS Information is not available PATHOLOGY NARRATIVE RESULTS Information is not available MICROBIOLOGY RESULTS No Micro Labs/Results Exist for Patient BLOOD ADMIN RESULTS Information is not available MEDICATIONS HOME MEDICATIONS Status RXNORM NDC Medication Dose Route Frequency Dates Comments Reported By Updated By Drug Treatment Unknown DISCHARGE MEDICATIONS Status RXNORM NDC Medication Dose Route Frequency Dates Comments Physician Updated By No Discharge Medication Info rmation Available INPATIENT MEDICATIONS Status RXNORM NDC Medication Dose Route Frequency Rat e Quantity Dates Comments Physician Updated By Hira inued [id number] 4036 009 potassium chloride (K-DUR) 20 MEQ TBCR 20.0 MEQ ORAL ONE TIME ONLY (SCHEDULED DOSE) Start: August 05, 2024 3:46:0 0 PM UT End: August 05, 2024 3:46:0 0 PM UT HUSEYIN Montejo [facility] ED on August 05, 2024 3:48:00 PM UT Discdalia inued [phone] magnesium oxide (MAG-OX) 400 MG TABS 400.0 MG ORAL ONE TIME ONLY (SCHEDULED DOSE) Start: August 05, 2024 3:46:0 0 PM UT End: August 05, 2024 3:46:0 0 PM [facility] August 05, 2024 3:48:00 PM [facility] SOCIAL HISTORY SOCIAL HISTORY SNOMED-CT Social History Element Description Effective Dates Offered Cessation Comment UpdatedBy [id number] Current Tobacco smoking status Never Smoked [id number] on August 05, 2024 1:46:46 PM [facility] [id number] Historical Tobacco smoking status Current Every Day Smoker No [id number] on May 01, 2023 12:51:22 AM [facility] SOCIAL HISTORY - Gender Sex: Female SOCIAL [...] for each vital sign as of August 07, 2024 7:33:13 AM [facility] Loinc Code Vital Sign [place] [address]-9 Body weight Measured August 05 1:45:10 PM UT 83.5 kg (184.0 lb) [id number] on August 05, 2024 1:45:10 PM [facility] 8867-4 Heart rate August 05, 2024 3:45:00 PM UT 78 /min [id number] on August 05, 2024 3:48:15 PM [facility] 8462-4 Diastolic blood pressure August 05, 2024 1:43:00 PM UT 67.0 mm[Hg] [id number] on August 05, 2024 3:38:42 PM [facility] 99024-7 Oxygen saturation in Arterial blood by Pulse oximetry August 05, 2024 3:45:00 PM UT 99.0 % [id number] on August 05, 2024 3:48:15 PM UT 9279-1 Respiratory rate August 05, 2024 3:45:00 PM UT 17 /min [id number] on August 05, 2024 3:48:15 PM UT 8480-6 Systolic blood pressure August 05, 2024 1:43:00 PM UT 116.0 mm[Hg] [id number] on August 05, 2024 3:38:42 PM UT PEDIATRIC GROWTH CHART - VITAL [...] available. ENCOUNTERS ENCOUNTER INFORMATION Reason for Visit CHEST TIGHTNESS Admission August 05, 2024 1:38:00 PM [place] [id number] [facility] [id number] Discharge August 05, 2024 3:57:00 PM UT DI SCHARGED TO HOME OR SELF CARE ENCOUNTER DIAGNOSES Notes information is not dal[place] ilable. Code System Diagnosis Onset Date Diagnosis information is not available. ABSTRACT DIAGNOSES Code System Diagnosis Updated By O99.893 ICD10 OTHER SPECIFIED DISEASES AND CONDITIONS COMPLICATING PUERPERIUM [id number] on August 07, 2024 7:28:11 AM [facility] R07.89 ICD10 OTHER CHEST PAIN [id number] on August 07, 2024 7:28:11 AM [facility] O99.893 ICD10 OTHER SPECIFIED DISEASES AND CONDITIONS COMPLICATING PUERPERIUM [id number] on August 07, 2024 7:28:11 AM [facility] R07.9 ICD10 CHEST PAIN, UNSPECIFIED [id number] on August 07, 2024 7:28:11 AM [facility] O99.283 ICD10 ENDOCRINE, NUTRI TIONAL AND METABOLIC DISEASES COMPLICATING , THIRD TRIMESTER [id number] on August 07, 2024 7:28:11 AM UTC E87.6 ICD10 HYPOKALEMIA [id number] 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 Role on Team Status Start Date End Date Update d By BONNIE BRAUN Referring normal August 05, 2024 2:10:38 PM UT August 05, 2024 3:57:00 PM UT [id number] on August 05, 2024 2:10:38 PM [facility] HUSEYIN STRINGER Attending normal July 122024 2:10:38 PM UT August 05, 2024 3:57:00 PM UTC [id number] on August 05, 2024 2:10:38 PM [facility] HUSEYIN STRINGER Admitting normal July 122024 2:10:38 PM UT August 05, 2024 3:57:00 PM UT [id number] on August 05, 2024 2:10:38 PM [facility] BONNIE BRAUN PCP normal August 05, 2024 1:39:46 PM UT August 05, 2024 3:57:00 PM UTC [id number] on August 05, 2024 2:10:38 PM UT
--- OUTSIDE RECORDS SUMMARY | 2024-08-20 19:50 | XMS_ITS | Continuity of Care Document ---
Author Organization [facility] Phone Care Team Providers Care Hand Laster Name Role Phone KADE NICOLE Primary Care COLOM, MOHIT Admitting Unavailable COLOM, MOHIT Primary Attending Unavailable ALLERGIES AND ADVERSE REACTIONS ALLERGIES AND ADVERSE REACTIONS Code System Allergy Substance Adverse Reaction Date Reaction (Severity) Comment Status Reported By Updated By [id number] RXNorm Penicillin Rash (Severe) Shock active [id number] on May 06, 2024 10:58:28 PM UT FAMILY HISTORY RELATION: Father Status: LIVING SNOMED-CT Diagnosis Age At Onset [id number] Congestive heart failure RELATION: Mother Status: LIVING SNOMED-CT Diagnosis Age At Onset Information not available RESULTS Patient: PERCY Dotson Date of : 2000 LABORATORY RESULTS ORDER 100: URINALYSIS REFLEX MICROSCOPIC (LOINC: 09035-5) ORDER DATE: May 07, 2024 12:08:00 AM UTC Specimen Source: URINE Specimen Type: Urine specime n PERFORMING LAB: [address] [id number] Result Comment: Final Result Date: May 07, 2024 12:32:00 AM UTC (TECH: RR) LOINC TEST FLAG RESULT REFERENCE RANGE UPDA WILLIAM BY 5778-6 Color of Urine N DRK YELLOW YELLOW Dece 2023 12:32:00 AM UTC (TECH: RR) 5767-9 Appearance of Urine N HAZY CLEAR May 07, 2024 12:32:00 AM UTC (TECH: RR) 5792-7 Glucose [Mass/volume] in Urine by Test strip N norm NORMAL May 07, 2024 12:32:00 AM UTC (TECH: RR) 31726-1 Bilirubin.total [Mass/volume] in Urine by Automated test strip N NEGATIVE NEGATIVE May 07, 2024 12:32:00 AM UTC (TECH: RR) 5797-6 Ketones [Mass/volume] in Urine by Test strip N NEGATIVE NEGATIVE May 07, 2024 12:32:00 AM UTC (TECH: RR) 2965-2 Specific gravity of Urine H 1.030 1.016 - 1.022 May 07, 2024 12:32:00 AM UTC (TECH: RR) 15938-4 Erythrocytes [#/volume] in Urine by Automated test strip N NEGATIVE NEGATIVE May 07, 2024 12:32:00 AM UTC (TECH: RR) 73365-0 pH of Urine by Automated test strip N 5 5 - 9 April 12:32:00 AM UTC (TECH: RR) 94412-1 Protein [Presence] in Urine by Test strip 30 NEGATIVE May 07, 2024 12:32:00 AM UTC (TECH: RR) 52355-5 Urobilinogen [Mass/volume] in Urine by Automated test strip 1 NORMAL May 07, 2024 12:32:00 AM UTC (TECH: RR) 46563-4 Nitrate [Presence] in Urine N NEGATIVE NEGATIVE May 07, 2024 12:32:00 AM UTC (TECH: RR) 43625-1 Leukocytes [#/volume] in Urine by Test strip 100 NEGATIVE May 07, 2024 12:32:00 AM UTC (TECH: RR) 10705-4 Urinalysis dipstick W Reflex Culture panel - Urine N YES May 07, 2024 12:32:00 AM UTC (TECH: RR) 08032-5 Erythrocytes [#/area] in Urine sediment by Microscopy high power field N NONE SEEN NONE SEEN May 07, 2024 12:32:00 AM UTC (TECH: RR) 5821-4 Leukocytes [#/area] in Urine sediment by Microscopy high power field 6-10 NONE SEEN May 07, 2024 12:32:00 AM UTC (TECH: RR) 34003-4 Epithelial cells.squamous [#/area] in Urine sediment by Microscopy high power field N 6-10 NONE SEEN May 07, 2024 12:32:00 AM UTC (TECH: RR) 5769-5 Bacteria [#/area] in Urine sediment by Microscopy high power field N 1+ NONE SEEN May 07, 2024 12:32:00 AM UTC (TECH: RR) 06374-3 Calcium oxalate crystals [#/area] in Urine sediment by Microscopy high power field N FEW NONE SEEN May 07, 2024 12:32:00 AM UTC (TECH: RR) 75877-7 Mucus [#/area] in Urine sediment by Microscopy low power field N 2+ NONE SEEN May 07, 2024 12:32:00 AM UTC (TECH: RR) 8246-1 Amorphous sediment [Presence] in Urine sediment by Light microscopy N RARE NONE SEEN May 07, 2024 12:32:00 AM UTC (TECH: RR) ORDER 200: CBC AUTO W DIFF ( LOINC: 24059-0) ORDER DATE: May 07, 2024 12:08:00 AM UTC Specimen Source: EDTA Specimen Type: Blood specime n with EDTA PERFORMING LAB: [address] [id number] Result Comment: Final Result Date: May 07, 2024 12:26:00 AM UTC (TECH: RR) LOINC TEST FLAG RESULT REFERENCE RANGE UPDA WILLIAM BY 6690-2 Leukocytes [#/volume] in Blood by Automated count H 10.6 K/ul 4.0 K/ul - 10.5 K/ul May 07, 2024 12:26:00 AM UTC (TECH: RR) 789-8 Erythrocytes [#/volume] in Blood by Automated count N 4.4 M/mm3 4.2 M/mm3 - 6.4 M/mm3 May 07, 2024 12:26:00 AM UTC (TECH: RR) 718-7 Hemoglobin [Mass/volume] in Blood L 11.0 gm/dl 12.5 gm/dl - 16.0 gm/dl May 07, 2024 12:26:00 AM UTC (TECH: RR) 12901-6 Hematocrit [Volume Fraction] of Blood L 34.7 % 37.0 % - 47.0 % May 07, 2024 12:26:00 AM UTC (TECH: RR) 787-2 Erythrocyte mean corpuscular volume [Entitic volume] by Automated count N 79.6 fl 78 fl - 100 fl May 07, 2024 12:26:00 AM UTC (TECH: RR) 785-6 Erythrocyte mean corpuscular hemoglobin [Entitic mass] by Automated count L 25.2 pg 27 pg - 31 pg May 07, 2024 12:26:00 AM UTC (TECH: RR) 786-4 Erythrocyte mean corpuscular hemoglobin concentration [Mass/volume] by Automated count L 31.7 g/dl 32 g/dl - 36 g/dl May 07, 2024 12:26:00 AM UTC (TECH: RR) 86270-3 Erythrocyte distribution width [Ratio] N 13.2 % 11.5 % - 14.0 % May 07, 2024 12:26:00 AM UTC (TECH: RR) 777-3 Platelets [#/volume] in Blood by Automated count N 237 K/ul 150 K/ul - 450 K/ul May 07, 2024 12:26:00 AM UTC (TECH: RR) 21259-0 Platelet mean volume [Entitic volume] in Blood by Automated count H 12.1 fl 6 fl - 9.5 fl May 07, 2024 12:26:00 AM UTC (TECH: RR) 71458-9 Neutrophils/100 leukocytes in Blood H 66.5 % 43 % - 65 % May 07, 2024 12:26:00 AM UTC (TECH: RR) 736-9 Lymphocytes/100 leukocytes in Blood by Automated count N 27.2 % 20.5 % - 45.5 % May 07, 2024 12:26:00 AM UTC (TECH: RR) 5905-5 Monocytes/100 leukocytes in Blood by Automated count L 4.9 % 5.5 % - 11.7 % May 07, 2024 12:26:00 AM UTC (TECH: RR) 713-8 Eosinophils/100 leukocytes in Blood by Automated count N 0.9 % 0.9 % - 2.9 % May 07, 2024 12:26:00 AM UTC (TECH: RR) 706-2 Basophils/100 leukocytes in Blood by Automated count N 0.2 % 0.2 % - 1.0 % May 07, 2024 12:26:00 AM UTC (TECH: RR) 30214-7 Immature granulocytes/100 leukocytes in Blood by Automated count N 0.3 % 0.0 % - 0.8 % May 07, 2024 12:26:00 AM UTC (TECH: RR) 75024-1 Nucleated cells [#/volume] in Blood N 0.0 % May 07, 2024 12:26:00 AM UTC (TECH: RR) 30406-9 Neutrophils [#/volume] in Blood H 7.0 K/uL 2.2 K/uL - 4.8 K/uL May 07, 2024 12:26:00 AM UTC (TECH: RR) 731-0 Lymphocytes [#/volume] in Blood by Automated count N 2.9 CELL/MCL 1.3 CELL/MCL - 2.9 CELL/MCL May 07, 2024 12:26:00 AM UTC (TECH: RR) 742-7 Monocytes [#/volume] in Blood by Automated count N 0.5 CELL/MCL 0.3 CELL/MCL - 0.8 CELL/MCL May 07, 2024 12:26:00 AM UTC (TECH: RR) 711-2 Eosinophils [#/volume] in Blood by Automated count N 0.1 CELL/MCL 0 CELL/MCL - 0.2 CELL/MCL May 07, 2024 12:26:00 AM UTC (TECH: RR) 704-7 Basophils [#/volume] in Blood by Automated count N 0.0 CELL/MCL 0.0 CELL/MCL - 1.0 CELL/MCL May 07, 2024 12:26:00 AM UTC (TECH: RR) 04026-5 Immature granulocytes [#/volume] in Blood N 0.03 K/ul May 07, 2024 12:26:00 AM UTC (TECH: RR) 96060-9 Nucleated cells [#/volume] in Blood N 0.00 K/uL May 07, 2024 12:26:00 AM UT (TECH: RR) 17611-3 Manual Differential panel - Blood N NO May 07, 2024 12:26:00 AM UT (TECH: RR) ORDER 300: COMP METABOLIC PA BURAK (LOINC: 14006-1) ORDER DATE: May 07, 2024 12:08:00 AM UT Specimen Source: PLASMA Specimen Type: Plasma specim en PERFORMING LAB: [address] [id number] Result Comment: Final Result Date: May 07, 2024 12:45:00 AM UT (TECH: ME) LOINC TEST FLAG RESULT REFERENCE RANGE UPDA WILLIAM BY 2951-2 Sodium [Moles/volume ] in Serum or Plasma L 135 mmol/L 136 mmol/L - 145 mmol/L May 07, 2024 12:36:00 AM UTC (TECH: ME) 2823-3 Potassium [Moles/vol ume] in Serum or Plasma N 3.7 mmol/L 3.6 mmol/L - 5.0 mmol/L May 07, 2024 12:36:00 AM UTC (TECH: ME) 2075-0 Chloride [Moles/volu me] in Serum or Plasma N 102 mmol/L 98 mmol/L - 107 mmol/L May 07, 2024 12:36:00 AM UTC (TECH: ME) 2027-9 Carbon dioxide, tota l [Moles/volume] in Serum or Plasma N 25.1 mmol/L 21.0 mmol/L - 32.0 mmol/L May 07, 2024 12:36:00 AM UTC (TECH: ME) 36656-1 Anion gap in Blood N 11.6 [facility] 2023 12:36:00 AM UTC (TECH: ME) 2345-7 Glucose [Mass/volume ] in Serum or Plasma N 92 mg/dl 70 mg/dl - 120 mg/dl May 07, 2024 12:36:00 AM UTC (TECH: ME) 6299-2 Urea nitrogen [Mass/volume] in Blood L 6 mg/dL 7 mg/dL - 18 mg/dL [facility] 2023 12:36:00 AM UTC (TECH: ME) 79275-1 Creatinine [Moles/vo lume] in Blood N 0.6 mg/dL 0.6 mg/dL - 1.3 mg/dL May 07, 2024 12:36:00 AM UTC (TECH: ME) 20643-0 Glomerular filtratio n rate/1.73 sq M.predicted by Creatinine-based formula (MDRD) N 130 mlpermin 60 mlpermin May 07, 2024 12:36:00 AM UTC (TECH: ME) 2885-2 Protein [Mass/volume ] in Serum or Plasma N 7.3 g/dl 6.4 g/dl - 8.2 g/dl May 07, 2024 12:45:00 AM UTC (TECH: ME) 1751-7 Albumin [Mass/volume ] in Serum or Plasma L 2.7 g/dl 3.4 g/dl - 5.0 g/dl May 07, 2024 12:45:00 AM [facility] [[email or web address]] (Front Flip) 2336-6 Globulin [Mass/volum e] in Serum N 4.6 May 07, 2024 12:45:00 AM [facility] [[email or web address]] (Front Flip) 1759-0 Albumin/Globulin [Ma ss Ratio] in Serum or Plasma L 0.6 0.7 - 2 [facility] er 2023 12:45:00 AM [facility] [[email or web address]] (Front Flip) 71091-9 Calcium [Mass/volume ] in Serum or Plasma N 8.8 mg/dl 8.5 mg/dl - 10.5 mg/dl May 07, 2024 12:36:00 AM [facility] [[email or web address]] (Front Flip) 1975-2 Bilirubin.total [Mass/volume] in Serum or Plasma N 0.10 mg/dL 0.10 mg/dL - 1.00 mg/dL May 07, 2024 12:45:00 AM [facility] [[email or web address]] (Front Flip) 1920-8 Aspartate aminotransferase [Enzymatic activity/volume] in Serum or Plasma N 13 U/L 0 U/L - 37 U/L May 07, 2024 12:45:00 AM [facility] [[email or web address]] (Front Flip) 1742-6 Alanine aminotransfe rase [Enzymatic activity/volume] in Serum or Plasma N 16 U/L 0 U/L - 65 U/L May 07, 2024 12:45:00 AM [facility] [[email or web address]] (Front Flip) 6768-6 Alkaline phosphatase [Enzymatic activity/volume] in Serum or Plasma H 120 U/L 46 U/L - 116 U/L May 07, 2024 12:45:00 AM [facility] [[email or web address]] ([employer]) LABORATORY NARRATIVE RESULTS Information is not available [...] Info rmation Available INPATIENT MEDICATIONS Status RXNORM ND Medication Dose Route Frequency Rat e Quantity Dates Comments Physician Updated By Hira inued [id number] 701 cephalexin (KEFLEX) 500 MG CAPS 500.0 MG ORAL ONE TIME ONLY (SCHEDULED DOSE) Start: Dece er 2023 12:48: 00 AM UTC End: Decemb er 2023 12:48: 00 AM UTC COLOM MOHIT INTERFAC ED on May 07, 2024 12:48:00 AM UTC SOCIAL HISTORY SOCIAL HISTORY SNOMED-CT Social History Element Description Effective Dates Offered Cessation Comment UpdatedBy [id number] Current Tobacco smoking status Never Smoked [id number] on May 06, 2024 10:58:35 PM UT [id number] Historical Tobacco smoking status Current Every Day Smoker No [id number] on May 01, 2023 12:51:22 AM UT [...] value for each vital sign as of May 09, 2024 2:00:55 AM UT Loinc Code Vital Sign Activity Date Result Updated By 8310-5 Body temperature May 06 10:56:00 PM UTC 97.0 [degF] [id number] on May 06, 2024 10:57:[place] [address]-6 Body weight Measured April 10:57:35 PM UTC 77.2 kg (170.0 lb) [id number] on May 06, 2024 10:57:35 PM UT 8462-4 Diastolic blood pressure May 06, 2024 11:21:00 PM UTC 64.0 mm[Hg] [id number] on May 07, 2024 1:39:42 AM UT 8867-4 Heart rate May 06 11:10:00 PM UTC 71 /min [id number] on May 07, 2024 1:39:[place] [address]-8 Oxygen saturation in Arterial blood by Pulse oximetry May 06, 2024 11:10:00 PM UTC 94.0 % [id number] on May 07, 2024 1:39:41 AM UT 9279-1 Respiratory rate May 06 11:10:00 PM UTC 19 /min [id number] on May 07, 2024 1:39:41 AM UT 8480-6 Systolic blood pressure May 06, 2024 11:21:00 PM [facility] [[email or web address]] 109.0 mm[Hg] [id number] on May 07, 2024 1:39:42 AM [facility] [[email or web address]] PEDIATRIC GROWTH CHART - VITAL SIGNS This [...] available. ENCOUNTERS ENCOUNTER INFORMATION Reason for Visit 18 WEEKS , A BDOMINAL PAIN Admission May 06, 2024 10:49:[address] [address] Discharge May 07, 2024 1:44:00 AM [facility] [[email or web address]] DISCHARGED TO HOME OR SELF CARE ENCOUNTER DIAGNOSES Notes information is not dalton ilable. Code System Diagnosis Onset Date Diagnosis information is not available. ABSTRACT DIAGNOSES Code System Diagnosis Updated By O26.892 ICD10 OTHER SPECIFIED RELATED CONDITIONS, SECOND TRIMESTER [id number] on May 08, 2024 4:09:29 AM [facility] [[email or web address]] R10.31 ICD10 RIGHT LOWER QUADRANT PAIN BY E3630 on May 08, 2024 4:09:29 AM [facility] [[email or web address]] R10.32 ICD10 LEFT LOWER QUADRANT PAIN BYE 3630 on May 08, 2024 4:09:29 AM [facility] [[email or web address]] O26.892 ICD10 OTHER SPECIFIED RELATED CONDITIONS, SECOND TRIMESTER [id number] on May 08, 2024 4:09:29 AM [facility] [[email or web address]] R10.84 ICD10 GENERALIZED ABDOMINAL PAIN B [id number] on May 08, 2024 4:09:29 AM [facility] [[email or web address]] O23.42 ICD10 UNSPECIFIED INFE CTION OF URINARY TRACT IN , SECOND TRIMESTER [id number] on May 08, 2024 4:09:29 AM [facility] [[email or web address]] N39.0 ICD10 URINARY TRACT IN FECTION, SITE NOT SPECIFIED [id number] on May 08, 2024 4:09:29 AM [facility] [[email or web address]] Z3A.18 ICD10 18 WEEKS GESTATION OF PREGNA NCY [id number] on May 08, 2024 4:09:29 AM [facility] [[email or web address]] Z88.0 ICD10 ALLERGY STATUS TO PENICILLIN [id number] on May 08, 2024 4:09:29 AM [facility] [[email or web address]] CARE TEAM Care Hand Laster Role KADE NICOLE Primary Care MOHIT SANCHEZ Admitting MOHIT SANCHEZ Primary Attending CARE TEAM CARE pedorthist Role on Team Status Start Date End Date Update d By DANIEL RUEDA Attending normal May 06 11:18:22 PM [facility] [[email or web address]] May 07, 2024 1:44:00 AM [facility] [[email or web address]] [id number] on May 06, 2024 11:18:22 PM [facility] [[email or web address]] DANIEL RUEDA Admitting normal May 06 11:18:22 PM [facility] [[email or web address]] May 07, 2024 1:44:00 AM [facility] [[email or web address]] [id number] on May 06, 2024 11:18:22 PM [facility] [[email or web address]] BONNIE BRAUN [facility] normal May 06 10:50:30 PM [facility] [[email or web address]] May 07, 2024 1:44:00 AM [facility] [[email or web address]] [id number] on May 06, 2024 11:18:22 PM [facility] [[email or web address]]
--- OUTSIDE RECORDS SUMMARY | 2024-08-20 19:51 | XMS_ITS | Continuity of Care Document ---
Author Organization 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 Name Role Phone GILDA GARCIA Admitting KADE NICOLE Primary Care GILDA GARCIA Unavailable GILDA GARCIA Primary Attending ALLERGIES AND ADVERSE REACTIONS ALLERGIES AND ADVERSE REACTIONS Code System Allergy Substance Adverse Reaction Date Reaction (Severity) Comment Status Reported By Updated By 3962 RXNorm Penicillin Rash (Severe) Shock active [id number] on August 17, 2024 8:24:35 PM [facility] FAMILY HISTORY RELATION: Father Status: LIVING SNOMED-CT Diagnosis Age At Onset [id number] Congestive heart failure RELATION: Mother Status: LIVING SNOMED-CT Diagnosis Age At Onset Information not available RESULTS Patient: PERCY Dotson Date of : 2000 LABORATORY RESULTS Information is not available LABORATORY NARRATIVE RESULTS Information is not available RADIOLOGY RESULTS ORDER 100: RENAL BILATERAL U S (LOINC: 49941-7) ORDER DATE: August 18, 2024 8:26:00 PM [facility] PERFORMING LAB: [address] [id number] Final Result Date: August 18, 2024 8:48:[address] [address] Name: BUFFY GREER Exam Date: 08/18/2024 : 2000 Age 23 years Gender: F Physician: GILDA GARCIA Facility: [facility] Facility HSV: Outpatient Exam: RENAL,BILATERAL US US KIDNEY BILATERAL, 08/18/2024 3:48 PM CDT INDICATION: pelvic and perineal pain Ultrasound evaluation of both kidneys completed Right kidney 12.1 cm. Left kidney 10.3 cm. No hydronephrosis, masses, stones or perinephric fluid collections. IMPRESSION: Normal renal ultrasound . Electronically signed by: Jose F Serna MD 08/18/2024 05:01 PM EDT Dictated By: Jose F Serna Transcribed By: Transcribed On: 08/18/2024 4:48 PM Electronically signed by: Jose F Serna 08/18/2024 Thank you for referring BUFFY GREER to [facility]. Legally authenticated by CARLITA STAHL 2024-08-18 16:48:11 PATHOLOGY NARRATIVE RESULTS Information is not available [...] Description Effective Dates Offered Cessation Comment UpdatedBy [id number] Historical Tobacco smoking status Never Smoked [id number] on August 17, 2024 8:24:44 PM [facility] [id number] Historical Tobacco smoking status Current Every Day Smoker No [id number] on May 01, 2023 12:51:22 AM [facility] SOCIAL HISTORY - Gender Sex: Female SOCIAL HISTORY - Status : status i nformation is not available Intention in Next Year: intention information is not available SOCIAL HISTORY - Sexual Behavior Sexual Orientation Gender Identity SNOMED-CT Description SNO MED -CT Description Activity Level No of Partners Partner Type UpdatedBy Information is not available HEALTH CONCERNS Problems Concern Status Health Concern problem infor mation not available. Smoking Status Status Years Used Consumed packs p er day Health Concern smoking histo ry information not available. Family History Concern Status Health Concern family histor y information not available. ENCOUNTERS ENCOUNTER INFORMATION Reason for Visit US RENAL Admission August 18, 2024 8:15:00 PM [facility] VICTOR HUGO [address] [address] Discharge August 18, 2024 8:15:00 PM [place] DIS CHARGED TO HOME OR SELF CARE ENCOUNTER DIAGNOSES Notes information is not dalton ilable. Code System Diagnosis Onset Date Diagnosis information is not available. 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 [id number] on August 20, 2024 12:43:57 PM UT R94.31 ICD10 ABNORMAL ELECTROCARDIOGRAM [ ECG] [EKG] [id number] on August 20, 2024 12:43:57 PM UT R00.0 ICD10 TACHYCARDIA, UNSPECIFIED KSI 3794 on August 20, 2024 12:43:57 PM UT R10.2 ICD10 PELVIC AND PERINEAL PAIN KSI 3794 on August 20, 2024 12:43:57 PM UT CARE TEAM Care 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 Machine 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 Helper Role GILDA GARCIA Admitting KADE NICOLE Primary Care GILDA GARCIA Referring GILDA GARCIA Primary Attending CARE TEAM CARE mental health clinician Role on Team Status Start Date End Date Update d By BONNIE BRAUN PCP normal August 13, 2024 2:31:46 PM UT August 18, 2024 8:15:00 PM [facility] [id number] on August 13, 2024 2:31:46 PM [facility] JOSE VO A PHY Referring normal August 13 025 2:31:46 PM [facility] August 18, 2024 8:15:00 PM UT [id number] on August 13, 2024 2:31:46 PM [facility] JOSE VO A PHY Attending normal August 13 025 2:31:46 PM [facility] August 18, 2024 8:15:00 PM [facility] [id number] on August 13, 2024 2:31:46 PM [facility] JOSE VO A PHY Admitting normal August 13 025 2:31:46 PM [facility] August 18, 2024 8:15:00 PM [facility] [id number] on August 13, 2024 2:31:46 PM [facility]
== END 2024-08-15 20:23 | disposition home or self-care (01) ==
PROVIDERS: Emergency Provider Emergency Medicine
DX: O26.899 Other specified pregnancy related conditions, unspecified trimester (principal); R10.30 Lower abdominal pain, unspecified; M54.9 Dorsalgia, unspecified; R30.9 Painful micturition, unspecified; Z87.42 Personal history of other diseases of the female genital tract; Z3A.33 33 weeks gestation of pregnancy
CPT/HCPCS: 80053; 81001; 83690; 84702; 85025; 87086; 96374; 99283; J0131

== ENCOUNTER 2024-09-09 20:30 | Emergency (ER) | payer OTHER, SELFPAY ==
[2024-09-09 20:34] VITALS: BP 120/77; PULSE 91; RESP 18; TEMP 36.7; O2SAT 98; BMI 29.0
--- NOTE | 2024-09-09 20:36 | ECG_ITS ---
APPROVED REPORT Exam: Resting ECG HR:85 bpm ECG Measurements Heart Rate 85 AXES AK 131 P 46 QRSd 84 QRS 66 QT 335 T -7 QTc 378 Conclusion SINUS RHYTHM NONSPECIFIC T-WAVE ABNORMALITY ABNORMAL ECG Electronically signed by : Yash Gupta, 09/10/2024 00:01:54
--- NOTE | 2024-09-09 20:38 | ED_ITS ---
Discharge Plan Disposition Patient Disposition: Home, Self-Care Prescriptions Prescriptions: No Action cephalexin 500 mg capsule 500 mg PO DAILY Referrals Follow up/Referrals: Provider,Barry, [Primary Care Provider] - See instructions Activity Restrictions/Add. Instructions Additional Instructions/Restrictions: Follow-up with [facility]. Please return to the ER with any new, concerning, or worsening symptoms. Clinical Impressions Clinical Impression: Anxiety Chest pain Qualifiers: Chest pain type: unspecified Qualified Code(s): R07.9 - Chest pain, unspecified Print Language Print Language: Kazakh Discharge ED Provider: Yash Gupta General Adult HPI General Chief complaint: Chest Pain Stated complaint: chest pain Time Seen by Provider: 09/09/24 20:31 Mode of Arrival: Ambulatory Source of Information: Patient Limitations: No Limitations History of Present Illness HPI narrative: This is a 23-year-old female G3, P2 currently 36 weeks presenting with chest discomfort. States that it began at around 5:30 PM. States that it is present in the upper part of her chest. Denies any shortness of breath. States that she has established care with her [facility] down at however did not believe that she can make it there. Denies any contractions or leakage of fluid. Uncomplicated so far. States that both of her other children were born premature and she never experienced any contractions at that time. Related Data Home Medications ?Medication ?Instructions ?Recorded ?Confirmed cephalexin 500 mg capsule 500 mg PO DAILY 08/17/24 08/17/24 Allergies Allergy/AdvReac Type Severity Reaction Status Date / Time Penicillins Allergy Severe Anaphylaxis Verified 08/17/24 09:08 [facility] Disclaimer: The information contained in this section may have been updated after the patient was seen, as this information can be updated by other users. Medical History (Updated 09/09/24 @ 23:22 by Yash Gupta MD) Influenza A Viral syndrome Surgical History H/O wisdom tooth extraction H/O adenoidectomy Hx of tonsillectomy Family History Other No significant family history Social History Smoking Status: Never smoker alcohol intake: never substance use type: denies use current occupational status: employed Travel in the last 8 weeks?: None household members: family housing: house Have you lived/traveled outside [place] in past 30 days?: No Contact w/someone who lives/traveled outside [place] past 30 days?: No Exposure to someone with infectious disease in past 14 days?: No Do you have a fever (greater than 100.4 F or 38 C)?: No Have you tested positive for COVID-19?: No Exposed to someone with COVID-19 in past 14 days?: No Do you have a sore throat?: No Do you have a cough?: No Do you have any weakness?: No Do you have any diarrhea?: No Are you experiencing any unusual bleeding?: No Do you have any muscle aches/pain?: No Do you have any abdominal pain?: No Are you experiencing loss of taste or smell?: No Other Medical History Have you received the Flu Vaccine for this season: Yes Have you received the Pneumonia Vaccine: No ROS Obtained: Yes All systems reviewed & no additional complaints except as documented Physical Exam General General appearance: alert and in no apparent distress Head Head exam: atraumatic Eye Eye exam: Present normal appearance, PERRL and EOMI Neck Neck exam: Present normal inspection and full ROM Chest Chest inspection: Present symmetric chest wall rise Respiratory Respiratory exam: Present normal lung sounds bilaterally; Absent respiratory distress Cardiovascular Cardiovascular exam: Present regular rate and normal rhythm Abdominal Exam Abdominal exam: Present soft and other (Gravid abdomen); Absent distention or tenderness Extremities Exam Extremities exam: Present normal inspection Neurological Exam Neurological exam: Present alert and oriented X3 Psychiatric Psychiatric exam: Present normal affect and normal mood Skin Skin exam: Present warm and dry Medical Decision Making Medical Records Medical records reviewed: Yes I reviewed the patient's medical records. Screening: Per USPSTF and CDC recommendations, given the prevalence of disease in our region, it is our hospital?s policy to screen for HIV and viral Hepatitis for all patients aged 18 and over and those with ongoing risk factors. Gregory Inquiry Pt receiving controlled substance: No Vital Signs: 09/09/24 20:34 09/09/24 20:54 Temperature 98.1 F Temperature Source Oral Pulse Rate 86 Pulse Rate [Right Radial] 91 H Respiratory Rate 18 Blood Pressure [Right Arm] 120/77 Blood Pressure Mean [Right Arm] 91 Blood Pressure Source [Right Arm] Automatic Cuff Blood Pressure Position [Right Arm] Sitting 02 Sat by Pulse Oximetry 98 Oxygen Delivery Method Room Air Lab Data Lab Results 09/09/24 20:36: WBC 13.8 H, RBC 4.13 L, Hgb 9.7 L, Hct 31.1 L, MCV 75.3 L, MCH 23.5 L, MCHC 31.2 L, RDW 13.8, Plt Count 315, MPV 11.6 H, Neut % (Auto) 64.6, Lymph % (Auto) 27.4, [place] % (Auto) 5.5, Eos % (Auto) 0.7, Baso % (Auto) 0.2, N eut # (Auto) 8.9 H, Lymph # (Auto) 3.8, [place] # (Auto) 0.8, Eos # (Auto) 0.1, Baso # (Auto) 0.0, Sodium 136, Potassium 3.6, Chloride 109 H, Carbon Dioxide 21 L, Anion Gap 9.6, BUN 5 L, Creatinine 0.50 L, Estimated Creat Clear 227, Estimated GFR 154, Est GFR ( Amer) 187, Glucose 108 H, Calcium 9.0, Total Bilirubin 0.2, AST 23, ALT 17, Alkaline Phosphatase 166 H, Troponin I < 0.01, Total Protein 6.5, Albumin 3.2 L, Globulin 3.3 H, Albumin/Globulin Ratio 1.0 L 09/09/24 20:50: Blood Type A Positive 09/09/24 22:39: Troponin I < 0.01 09/09/24 20:36 09/09/24 20:36 Orders (Tests/Meds): ORDERS Category Date Time Status ABO/RH Type Stat BBK 09/09/24 20:50 Completed CBC w/Auto Diff [Complete Blood Count Auto Diff] Stat Lab 09/09/24 20:36 Completed CMP [Comprehensive Metabolic Panel] Stat Lab 09/09/24 20:36 Completed Troponin I Q3H Lab 09/09/24 22:39 Completed Troponin I Q3H Lab 09/10/24 02:45 Ordered Troponin I Stat Lab 09/09/24 20:36 Completed ECG Data Tracing #1: I reviewed this ECG and interpreted as documented below: Sinus rhythm at a rate of 85, QTc 378, normal axis, very similar appearing to previous EKG, no STEMI Medical Decision Narrative: In summary, this 23-year-old female G3, P2 currently 36 weeks presents to the emergency department today with chest discomfort that began at about 5:30 PM. On initial evaluation patient is afebrile, hemodynamically stable, nontoxic- appearing. Differential diagnosis includes but is not limited to ACS, pulmonary embolism, anxiety, premature labor. Based on these concerns, I ordered CBC, CMP, troponin, EKG. [facility] nurses were also immediately notified and came down to place the patient on cardiotocography. ECG personally interpreted as noted above. Labs personally reviewed demonstrate undetectable troponin x2, elevated white blood cell count at 13.8, hemoglobin of 9.7 consistent with patient's chronic anemia, unremarkable CMP. Patient had no regular uterine contractions on cardiotoco with a reassuring heart rate. Patient cervix was also checked by OB nurses from upstairs and she was closed. Discussed patient's case and presentation with OB on-call who agreed that patient would be appropriate for discharge and follow-up. Did not obtain D-dimer or CT PE to rule out pulmonary embolism, however patients symptoms had resolved, she was satting 100% on room air with no acute respiratory distress or active chest pain. She had felt that her symptoms were most likely consistent with anxiety. D-dimer is controversial in as it is likely to be elevated anyways. Patient was agreeable with deferring CT imaging at this time as she felt that this was most likely anxiety/stress. Critical Care Critical Care Time Critical Care Time: No
[2024-09-09 20:54] VITALS: PULSE 86
--- NOTE | 2024-09-09 21:12 | PC.NURSE ---
RN at bedside initiating monitoring and NST from [id number]. FHR auscultated at 128 upon placement of ultrasound. FHR baseline 130, then decreased to 125 at 2054, with moderate variability, 15x15 accelerations, and no decelerations. Tocometer reveals uterine irritability with one 40 sec contraction that is mild to palpation, abdomen soft and nontender. Patient states she is a , 36.0 weeks gestation, patient of Dr. Vasquez at [place]. Patient denies issues this other than some abnormal NIPT testing which was ruled negative after an amniocentesis and 2 [facility] procedures. Patient denies history of HTN or GDMA but reports labor and delivery with her last . Last was 11/09/23 with history of short interval with all pregnancies as well as a BTL after last delivery. Patient denies LOF or VB today but reports normal FM and feeling some lower abdominal tightening/pressure but nothing consistent or painful. Monitoring D/C'd at 2102 with a reactive NST and patient reassured. Patient encouraged to call her OB provider for sooner follow-up.
[2024-09-09 21:18] LABS: Albumin Level 3.2 g/dl (3.5-5.0); Chloride 109 mmol/L (98-107); Sodium 136 mmol/L (136-145)
[2024-09-09 21:21] LABS: Alanine Aminotransferase 17 U/L (12-78); Alkaline Phosphatase 166 U/L (38-126); Aspartate Amino Transferase 23 U/L (14-36); Bilirubin,Total 0.2 mg/dl (0.2-1.3); Blood Urea Nitrogen 5 mg/dl (7-17); Carbon Dioxide 21 mmol/L (22.0-30.0); Creatinine Clearance Estimated 227 mL/min (50-200); Estimated Glomerular Filt Rate 154 ml/min (>60); GFR (African American) 187 ML/MIN (>60); Globulin 3.3 g/dL (1.3-3.2); Total Protein,Serum 6.5 g/dl (6.3-8.2)
[2024-09-09 21:22] LABS: Glucose 108 mg/dl (74-100)
[2024-09-09 21:30] LABS: Basophils % 0.2 % (0.1-2.0); Eosinophils # 0.1 Kmm3 (0.0-0.4); Eosinophils % 0.7 % (0.1-12.0); Hematocrit 31.1 % (37.0-47.0); Hemoglobin 9.7 g/dL (12.2-16.2); Lymphocytes # 3.8 K/mm3 (0.7-4.5); Lymphocytes % 27.4 % (10-50); Mean Corpuscular HGB Conc 31.2 g/dL (31.8-35.4); Mean Corpuscular Hemoglobin 23.5 pg (27.0-31.2); Mean Corpuscular Volume 75.3 fl (81-99); Mean Platelet Volume 11.6 fl (7.4-10.4); Monocytes # 0.8 K/mm3 (0.1-1.0); Monocytes % 5.5 % (1.7-9.3); Neutrophils # 8.9 K/mm3 (1.8-7.8); Neutrophils % 64.6 % (37.0-80.0); Nucleated Red Blood Cells # 0 10^3/uL; Nucleated Red Blood Cells % 0 %; Platelet Count 315 K/mm3 (142-424); Red Blood Count 4.13 M/mm3 (4.20-5.40); Red Cell Distribution Width 13.8 % (11.5-17.5); Red Cell Distribution Width-SD 37.1 fL; White Blood Count 13.8 K/mm3 (4.8-10.8)
--- NOTE | 2024-09-09 21:34 | PC.NURSE ---
Whitney, OB RN, to bedside to monitor FHR and contractions. Reports pt is not nicol and baseline FHR 125-130
--- NOTE | 2024-09-09 21:35 | PC.NURSE ---
Dr Gupta spoke with Dr Mondragon and Dr mondragon requested OB RN to check cervix.
[2024-09-09 21:36] LABS: Anion Gap 9.6 mEq/L (5-15); Potassium 3.6 mmoL/L (3.5-5.1)
[2024-09-09 21:39] LABS: Troponin I < 0.01 ng/ml (0.00-0.034)
--- NOTE | 2024-09-09 21:42 | PC.NURSE ---
RN at bedside to perform SVE. Patient consents at this time. Cervix closed/thick/high with presenting part unable to be determined. No bloody show noted at this time. ED RN notified of exam
[2024-09-09 23:10] LABS: Troponin I < 0.01 ng/ml (0.00-0.034)
[2024-09-09 23:25] VITALS: BP 147/84; PULSE 80; RESP 18; TEMP 36.6; O2SAT 99
== END 2024-09-09 23:32 | disposition home or self-care (01) ==
PROVIDERS: Emergency Provider Student in an Organized Health Care Education/Training Program
DX: O26.893 Other specified pregnancy related conditions, third trimester (principal); R07.89 Other chest pain; F41.9 Anxiety disorder, unspecified; Z3A.36 36 weeks gestation of pregnancy
CPT/HCPCS: 36415; 80053; 84484; 85025; 86900; 86901; 93005; 99284

== ENCOUNTER 2025-01-19 18:58 | Outpatient (CLI) | payer OTHER, SELFPAY ==
--- OUTSIDE RECORDS SUMMARY | 2024-11-30 14:20 | XMS_ITS | Encounter Summary ---
Author Organization [facility] Address [address] [place] [address] Care Team Providers Care Bond Trader Name Role Phone Shameka Quiñones APRN Primary Care Provider [phone] Reason for Visit * Reason Comments ADD Dx when she was 7-8 and stopped treatment at 17. Encounter Details Date Type Department Care Team (Late st Contact Info) Description 11/30/2024 2:20 PM EDT Office Visit [facility] Medicine [address] [place] [address] Shameka Quiñones APRN [address] [place] [address] Anxiety and depression (Primary Dx); History of ADHD; Abnormal laboratory test Social History Tobacco Use Types Packs/Day Years Used Date Smoking Tobacco: Never Passive Smoke Exposure: Never Smokeless Tobacco: Never Tobacco Cessation:Counseling Given: Not Answered Alcohol Use Standard Drinks/Week Comments Never 0 (1 standard drink = 0.6 oz pur e alcohol) Humiliation, Afraid, Rape, and Kick questionnair e Answer Date Recorded Within the last year, have y ou been afraid of your partner or ex-partner? No 12/03/2023 Within the last year, have y ou been humiliated or emotionally abused in other ways by your partner or ex-partner? No Within the last year, have y ou been kicked, hit, slapped, or otherwise physically hurt by your partner or ex-partner? No 12/03/2023 Within the last year, have y ou been raped or forced to have any kind of sexual activity by your partner or ex-partner? No 12/03/2023 Social Connection and Isolation Panel Answer Date Recorded In a typical week, how many times do you talk on the phone with family, friends, or neighbors? More than three times a week 12/03/2023 How often do you get togethe r with friends or relatives? More than three times a week 12/03/2023 How often do you attend [facility] or temple services? Never 12/03/2023 Do you belong to any clubs o r organizations such as mormonism groups, unions, fraternal or athletic groups, or school groups? No 12/03/2023 How often do you attend meet ings of the clubs or organizations you belong to? Never 12/03/2023 Are you , , di vorced, , never , or living with a partner? 12/03/2023 AUDIT-C Answer Date Recorded Q1: How often do you have a drink containing alcohol? Never 12/03/2023 Q2: How many drinks containi ng alcohol do you have on a typical day when you are drinking? Patient does not drink Q3: How often do you have si x or more drinks on one occasion? Never 12/03/2023 Overall Financial Resource Strain (CARDIA) Answe r Date Recorded How hard is it for you to pa y for the very basics like food, housing, medical care, and heating? Not hard at all 12/03/2023 PHQ-2 Answer Date Recorded Patient Health Questionnaire-2 Score 2 11/30/2024 [facility] - Occupational Stress Questionnaire Answer Date Recorded Do you feel stress - tense, restless, nervous, or anxious, or unable to sleep at night because your mind is troubled all the time - these days? Not at all 12/03/2023 Exercise Vital Sign Answer Date Recorde d On average, how many days pe r week do you engage in moderate to strenuous exercise (like a brisk walk)? 2 days 12/03/2023 On average, how many minutes do you engage in exercise at this level? 30 min 12/03/2023 PHQ-9 Answer Date Recorded Patient Health Questionnaire-9 Score 10 11/30/2024 Hunger Vital Sign Answer Date Recorded Within the past 12 months, y ou worried that your food would run out before you got the money to buy more. Never true 11/05/19 Within the past 12 months, t he food you bought just didn't last and you didn't have money to get more. Never true 11/04/2024 PRAPARE - Transportation Answer Date Re corded In the past 12 months, has l ack of transportation kept you from medical appointments or from getting medications? No 10/12 In the past 12 months, has l ack of transportation kept you from meetings, work, or from getting things needed for daily living? No 11/04/2024 Housing Stability Vital Sign Answer Basim e Recorded Unable to Pay for Housing in the Last Year Not o n file 11/04/2024 In the past 12 months, how m any times have you moved where you were living? 0 11/04/2024 Homeless in the Last Year Not on file 2024 Dixon Depression Scale Answer Date Recorded [place] Depression Scale Total 7 10/26/2024 The thought of harming myself has occurred to me . Never 10/26/2024 Utilities Answer Date Recorded In the past 12 months has th e electric, gas, oil, or water company threatened to shut off services in your home? No 11/04/2024 PHQ-2A Answer Date Recorded Depression Risk 0 11/08/2023 Comments No Sex and Gender Information Value Date Recorded Sex Assigned at Not on file Legal Sex Female 8:23 PM EDT Gender Identity Not on file Sexual Orientation Not on file Occupation Industry Job Start Date Job End Date Not on file Not on file Not on file Not on file documented as of this encounter Last Filed Vital Signs Vital Sign Reading Time Taken Comments Blood Pressure 122/72 11/30/2024 2:00 PM EDT Pulse 78 11/30/2024 2:00 PM EDT Temperature - - Respiratory Rate 18 11/30/2024 2:00 PM EDT Oxygen Saturation 100% 11/30/2024 2:00 PM EDT Inhaled Oxygen Concentration - - Weight 80.9 kg (178 lb 5.6 oz) 11/30/2024 2:00 P M EDT Height 165.1 cm (5' 5 ) 11/30/2024 2:00 PM EDT Body Mass Index 29.68 11/30/2024 2:00 PM EDT documented in this encounter Functional Status * Over the past 2 weeks, how often have you been bothered by any of the following problems? Question Answer Date of Assessment Author Little interest or pleasure in doing things Several days 11/30/2024 2:01 PM Mary Sykes Feeling down, depressed, or hopeless Several days 11/30/2024 2:01 PM Mary Sykes Patient Health Questionnaire -2 Score 2 11/30/2024 2:01 PM Mary Sykes * Question Answer Date of Assessment Author Trouble falling or staying asleep, or sleeping too much More than half the days 11/30/2024 2:01 PM Mary Sykes Feeling tired or having little energy More than half the days 11/30/2024 2:01 PM Mary Sykes Poor appetite or overeating Several days 11/30/2024 2:01 PM Mary Sykes Feeling bad about yourself - or that you are a failure or have let yourself or your family down Several days 11/30/2024 2:01 PM Mary Sykes Trouble concentrating on things, such as reading the newspaper or watching television More than half the days 11/30/2024 2:01 PM Mary Sykes Moving or speaking so slowly that other people could have noticed? Or the opposite - being so fidgety or restless that you have been moving around a lot more than usual. Not at all 11/30/2024 2:01 PM Mary Sykes Thoughts that you would be better off or hurting yourself in some way Not at all 11/30/2024 2:01 PM Mary Sykes Patient Health Questionnaire-9 Score 10 11/30/2024 2:01 PM Mary Sykes * If you checked off any problems on this questionnaire so far, Question Answer Date of Assessment Author How difficult have these problems made it for you to do your work, take care of things at home, or get along with other people? Very difficult 11/30/2024 2:01 PM Mary Sykes * How difficult have these problems made it for you to do your work, take care of things at home, or get along with other people? Answer Date of Assessment Author Very difficult 11/30/2024 2:01 PM Mary Sykes documented as of this encounter Miscellaneous Notes * Progress Notes - Shameka Quiñones, [employer] OFF[employer]ER - 11/30/2024 2:20 PM EDT Subjective Patient ID: Alma Rojo is a 24 y.o. female. Chief Complaint Patient presents with ADD Dx when she was 7-8 and stopped treatment at 17. Here to discuss ADD. Says she was diagnosed with this when she was much younger. Was on medication,but unsure of name, says mom just gave it to her. She stopped medication when she graduated high school at age 17. Went to college, but failed. 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 Reports trouble focusing and staying on task. Any noise will distract her. We started fluoxetine last month for anxiety. Patient says she is less frustrated, butdoesn't help her focus. She is not currently and had tubes removed. The following portions of the chart were reviewed this encounter and updated as appropriate: Tobacco Allergies Meds Problems Med Hx Surg Hx Fam Hx Current Medications[1] Review of Systems A 14 point ROS reviewed and is otherwise negative except as per HPI. Objective Visit Vitals BP 122/72 Pulse 78 Resp 18 Ht 1.651 m (5' 5 ) Wt 80.9 kg (178 lb 5.6 oz) SpO2 100% BMI 29.68 kg/m?? OB Status Recent Smoking Status Never BSA 1.93 m?? Body mass index is 29.68 kg/m??. Physical Exam Vitals reviewed. Constitutional: General: She is not in acute distress. HENT: Head: Normocephalic. Mouth/Throat: Mouth: Mucous membranes are moist. Eyes: Conjunctiva/sclera: Conjunctivae normal. Cardiovascular: Rate and Rhythm: Normal rate. Pulmonary: Effort: Pulmonary effort is normal. Skin: General: Skin is warm and dry. Neurological: Mental Status: She is alert and oriented to person, place, and time. Psychiatric: Mood and Affect: Mood normal. Behavior: Behavior normal. Assessment/Plan 1. Anxiety and depression (Primary) Improved on fluoxetine so will continue. Advised close follow-up for any worsening of symptoms. 2. History of ADHD Chronic, not currently well-controlled. Trial Strattera as directed. Risks vs benefits and potential adverse effects of the medication discussed. List of local psych providers given so patient can schedule an appointment to be seen for further management. - atomoxetine (Strattera) 40 MG capsule; Take 1 capsule by mouth 2 times a day. Swallow capsule whole; do not open. If opened accidentally, do not touch eyes; wash hands immediately (product is an eye irritant). Dispense: 60 capsule; Refill: 5 3. Abnormal laboratory test - CBC and Differential Shameka Quiñones APRN [1] Current Outpatient Medications: FLUoxetine (PROzac) 10 MG capsule, Take 1 capsule by mouth daily., Disp: 30 capsule, Rfl: 5 multivitamin () 27-0.8 MG tablet, Take 1 tablet by mouth 1 (one) time each day., Disp: 30 tablet, Rfl: 11 documented in this encounter Plan of Treatment Not on file documented as of this encounter Goals Goal Patient Goal Type Associated Problems Recent Progress Patient-Stated? Author Delayed Delivery Care Plan CPM S22 PP LABOR (OBSTETRICS) No Open Scheduling, Background documented as of this encounter Procedures Procedure Name Priority Date/Time Associated Diagnosis Comments MORPHOLOGY Routine 11/30/2024 2:29 PM EDT Abnormal laboratory test CBC WITH AUTO DIFFERENTIAL Routine 11/30/2024 2:29 PM EDT Abnormal laboratory test documented in this encounter Results * Morphology (11/30/2024 2:29 PM EDT) RBC Morphology Slide Reviewed LAB HEMATOLOGY METHOD 11/30/2024 8:15 PM EDT [facility] Clumped Platelets Present LAB HEMATOLOGY METHOD 11/30/2024 8:15 PM EDT [facility] Blood Venous blood specimen / Unknown Venipuncture / Unknown 11/30/2024 2:29 PM EDT 11/30/2024 2:29 PM EDT us Shameka Quiñones [employer] REVENUE OFFICER LAB BLOOD ORDERABLES Final Resu lt [facility] [address] [place] [address] * (ABNORMAL) CBC and Differential (11/30/2024 2:29 PM EDT) WBC Count 11.66(H) 3.70 - 10.30 10*3/uL LAB HEMATOLOGY METHOD 11/30/2024 8:15 PM EDT [facility] RBC Count 4.84 3.90 - 5.20 10*6/uL LAB HEMATOLOGY METHOD 11/30/2024 8:15 PM EDT [facility] HGB 11.7 11.2 - 15.7 g/dL LAB HEMATOLOGY METHOD 11/30/2024 8:15 PM EDT [facility] HCT 38.8 34.0 - 45.0 % LAB HEMATOLOGY METHOD 11/30/2024 8:15 PM EDT [facility] Platelet Count 202 155 - 369 10*3/uL LAB HEMATOLOGY METHOD 11/30/2024 8:15 PM EDT [facility] MCV 80 79 - 98 fL LAB HEMATOLOGY METHOD 11/30/2024 8:15 PM EDT [facility] MCH 24.2(L) 26.0 - 32.0 pg LAB HEMATOLOGY METHOD 11/30/2024 8:15 PM EDT [facility] MCHC 30.2(L) 30.7 - 35.5 g/dL LAB HEMATOLOGY METHOD 11/30/2024 8:15 PM EDT [facility] RDW 17.2(H) 11.5 - 14.5 % LAB HEMATOLOGY METHOD 11/30/2024 8:15 PM EDT [facility] MPV LAB HEMATOLOGY METHOD 11/30/2024 8:15 PM EDT [facility] Comment:Not Measured nRBC 0.0 <=0.0 per 100 WBCs LAB HEMATOLOGY METHOD 11/30/2024 8:15 PM EDT [facility] Differential Type Automated LAB HEMATOLOGY METHOD 11/30/2024 8:15 PM EDT [facility] Neutrophils % 60 % LAB HEMATOLOGY METHOD 11/30/2024 8:15 PM EDT [facility] Lymphocytes % 32 % LAB HEMATOLOGY METHOD 11/30/2024 8:15 PM EDT [facility] Monocytes % 5 % LAB HEMATOLOGY METHOD 11/30/2024 8:15 PM EDT [facility] Eosinophils % 2 % LAB HEMATOLOGY METHOD 11/30/2024 8:15 PM EDT [facility] Basophils % 0 % LAB HEMATOLOGY METHOD 11/30/2024 8:15 PM EDT [facility] Immature Granulocytes % 1 % LAB HEMATOLOGY METHOD 11/30/2024 8:15 PM EDT [facility] Neutrophils Absolute 6.96(H) 1.60 - 6.10 10*3/uL LAB HEMATOLOGY METHOD 11/30/2024 8:15 PM EDT [facility] Lymphocytes Absolute 3.77 1.20 - 3.90 10*3/uL LAB HEMATOLOGY METHOD 11/30/2024 8:15 PM EDT [facility] Monocytes Absolute 0.63 0.30 - 0.90 10*3/uL LAB HEMATOLOGY METHOD 11/30/2024 8:15 PM EDT [facility] Eosinophils Absolute 0.19 0.00 - 0.50 10*3/uL LAB HEMATOLOGY METHOD 11/30/2024 8:15 PM EDT [facility] Basophils Absolute 0.04 0.00 - 0.10 10*3/uL LAB HEMATOLOGY METHOD 11/30/2024 8:15 PM EDT [facility] Immature Granulocytes Absolute 0.07(H) 0.00 - 0.06 10*3/uL LAB HEMATOLOGY METHOD 11/30/2024 8:15 PM EDT [facility] Blood Venous blood specimen / Unknown Venipuncture / Unknown 11/30/2024 2:29 PM EDT 11/30/2024 2:29 PM EDT [facility] - 11/30/2024 8:15 PM EDT Therapeutic decision making should be based on absolute values, rather than percentages. 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 OFFICER [address] [place] [address] PCP - General Family Medicine 08/22/23 documented as of this encounter
[2025-01-19 20:09] LABS: Coronavirus 19, PCR Not Detected (NotDetected); Influenza A, PCR Not Detected (NotDetected); Influenza B, PCR Not Detected (NotDetected)
--- OUTSIDE RECORDS SUMMARY | 2025-01-20 10:16 | XMS_ITS | Encounter Summary ---
Author Organization Healthcare Address [address] [place] [address] Care Team Providers Care Correspondence Transcriber Name Role Phone Shameka Quiñones APRN Primary Care Provider [phone] Encounter Details Date Type Department Care Team (Latest Contact Info) Description 11/30/2024 Travel Social History Tobacco Use Types Packs/Day Years Used Date Smoking Tobacco: Never Passive Smoke Exposure: Never Smokeless Tobacco: Never Alcohol Use Standard Drinks/Week Comments Never 0 [...] week 12/03/2023 How often do you attend [facility] or spiritism services? Never 12/03/2023 Do you belong to any clubs o r organizations such as mu-ism groups, unions, fraternal or athletic groups, or [...] Recorded Patient Health Questionnaire-2 Score 2 11/30/2024 [facility] - [facility]ational [facility] Questionnaire Answer Date Recorded [...] money to buy more. Never true 11/05/19 25 Within the past 12 months, t he [...] the Last Year Not on file 2024 [place] Depression Scale Answer Date Recorded [place] Depression Scale Total 7 10/26/2024 The thought of harming myself has occurred to me . Never 10/26/2024 Utilities Answer Date Recorded In the past 12 months has e electric, gas, oil, or water company [...] on file documented as of this encounter Functional Status * Over the [...] Mary Sykes documented as of this encounter Plan of Treatment Not on file documented as of this encounter Goals Goal Patient Goal Type Associated Problems Recent Progress Patient-Stated? Author Delayed Delivery Care Plan CPM S22 PP LABOR (OBSTETRICS) No Open Scheduling, Background documented as of this encounter Visit Diagnoses Not on filedocumented in this encounter Additional Health Concerns Active Problems Noted Date Diagnosed Date CPM S22 PP LABOR (OBSTETRICS) 02/28/2024 Infection Onset Date Last Indicated Resolved Time MRSA 07/18/2023 07/18/2023 Assessment Noted Time PHQ-9 Depression Total Score: 10 025 2:01 PM EDT A fall risk assessment has been complete d for the patient 10/26/2024 8:44 AM EDT A Body Mass Index follow-up plan has been documented for the patient 11/02/2024 8:44 AM EDT documented as of this encounter Care Teams Correspondence Transcriber Relationship Specialty Start Date End Date Shameka Quiñones APRN [address] [place] [id number] PCP - General Family Medicine 08/22/23 documented as of this encounter
--- OUTSIDE RECORDS SUMMARY | 2025-01-20 10:16 | XMS_ITS | Encounter Summary ---
Author Organization Healthcare Address [address] [place] [address] Care Team Providers Care Deck Builder Name Role Phone Shameka Quiñones APRN Primary Care Provider Encounter Details Date Type Department Care Team (Late st Contact Info) Description 12/02/2024 Orders Only [facility] [address] [place] [address] Shameka Quiñones APRN [address] [place] [address] History of ADHD Social History Tobacco Use Types Packs/Day Years [...] week 12/03/2023 How often do you attend chur ch or gnosticist services? Never 12/03/2023 Do you belong to any clubs o r organizations such as mormon groups, unions, fraternal or athletic groups, or [...] Recorded Patient Health Questionnaire-2 Score 2 11/30/2024 [facility] - Occupational Stress Questionnaire Answer Date Recorded [...] the Last Year Not on file 2024 Barrett Depression Scale Answer Date Recorded Barrett Depression Scale Total 7 10/26/2024 The thought [...] on file documented as of this encounter Plan of Treatment Not on file documented as of this encounter Goals Goal Patient Goal Type Associated Problems Recent Progress Patient-Stated? Author Delayed Delivery Care Plan CPM S22 PP LABOR (OBSTETRICS) No Open Scheduling, Background documented as of this encounter Visit Diagnoses Diagnosis History of ADHD documented in this encounter Additional Health Concerns [...] documented as of this encounter Care Teams Deck Builder Relationship Specialty Start Date End Date Shameka Quiñones, MACHINE IRONER [address] [place] [address] PCP - General Family Medicine 08/22/23 documented as of this encounter
--- OUTSIDE RECORDS SUMMARY | 2025-01-20 10:16 | XMS_ITS | Encounter Summary ---
Author Organization Healthcare Address [address] [place] [address] Care Team Providers Care Shoe Treer Name Role Phone Shameka Quiñones APRN Primary Care Provider [phone] Reason for Visit * Reason Comments Med Refill Encounter Details Date Type Department Care Team (Late st Contact Info) Description 12/17/2023 Refill Obstetrics & Gynecology [address] [place] [address] Radha Abdi RN [address] [place] [address] Vaginal candidiasis Social History Tobacco Use Types Packs/Day Years [...] often do you attend chur ch or caodaism services? Never 12/03/2023 Do you belong to any clubs o r organizations such as episcopal groups, unions, fraternal or athletic groups, or [...] Answer Date Recorded Patient Health Questionnaire-2 Score 0 12/03/2023 [facility] - Occupational Stress [...] exercise at this level? 30 min 12/03/2023 Hunger Vital Sign Answer Date Recorded Within the past 12 months, y ou worried that your food would run out before you got the money to buy more. Never true 12/03/19 24 Within the past 12 months, t he food you bought just didn't last and you didn't have money to get more. Never true 12/03/2023 PRAPARE - Transportation Answer Date Re corded In the past 12 months, has l ack of transportation kept you from medical appointments or from getting medications? No 11/11 In the past 12 months, has l ack of transportation kept you from meetings, work, or from getting things needed for daily living? No 12/03/2023 Housing Stability Vital Sign Answer Basim e Recorded In the last 12 months, was t here a time when you were not able to pay the mortgage or rent on time? No 12/03/2023 In the last 12 months, how many places have you lived? 1 12/03/2023 In the last 12 months, was t here a time when you did not have a steady place to sleep or slept in a group home (including now)? No 12/03/2023 [place] Depression Scale Answer Date Recorded [place] Depression Scale Total 0 12/09/2023 The thought of harming myself has occurred to me . Never 12/09/2023 Utilities Answer Date Recorded In the past 12 months has th e electric, gas, oil, or water company threatened to shut off services in your home? No 12/03/2023 PHQ-2A Answer Date Recorded Depression Risk 0 [...] on file documented as of this encounter Visit Diagnoses Diagnosis Vaginal candidiasis Candidiasis of vulva and vagina documented in this encounter Additional Health Concerns Infection Onset Date Last Indicated Resolved Time Rhinovirus 04/15/2023 04/15/2023 01/31/2024 6:01 PM EDT MRSA 07/18/2023 07/18/2023 MRSA Escalation Plan Comment:MRSA Escalation Plan is in effect as of 01/10/2024. Patient will require contact precautions for the duration of the hospital admission, regardless of movement to another unit. This infection may be resolved upon discharge from the hospital. 02/01/2024 02/01/2024 02/03/2024 5:23 AM E DT Assessment Noted Time A fall risk assessment has been complete d for the patient 11/01/2023 2:02 PM EDT A Body Mass Index follow-up plan has been documented for the patient 12/09/2023 1:16 PM EDT documented as of this encounter Care Teams Shoe Treer Relationship Specialty Start Date End Date Shameka Quiñones APRN [address] [place] [address] PCP - General Family Medicine 08/22/23 documented as of this encounter
--- OUTSIDE RECORDS SUMMARY | 2025-01-20 10:16 | XMS_ITS | Encounter Summary ---
Author Organization Healthcare Address [address] [place] [address] Care Team Providers Care Tandem Mill Operator Name Role Phone Shameka Quiñones APRN Primary Care Provider [phone] Reason for Visit * Reason Onset Date Comments [facility] - Patient Message 12/03/2024 Encounter Details Date Type Department Care Team (Late st Contact Info) Description 12/03/2024 Telephone Obstetrics & Gynecology [address] [place] [address] Glenn Vasquez MD [address] [place] [address] [facility] - Patient Message Social History Tobacco Use Types Packs/Day Years [...] often do you attend chur ch or baptism services? Never 12/03/2023 Do you belong to any clubs o r organizations such as tenriism groups, unions, fraternal or athletic groups, or [...] Recorded Patient Health Questionnaire-2 Score 2 11/30/2024 [facility]ational Stress Questionnaire Answer Date [...] the Last Year Not on file 2024 [place] Depression Scale Answer Date Recorded [place] Depression Scale Total 7 10/26/2024 The thought [...] on file documented as of this encounter Miscellaneous Notes * Telephone Encounter - Haim Thompsonhalima Dotson - 12/03/2024 8:10 AM EDT Clinical Concern/Question Reason for Call: pt is not able to make her appt her kids have hand foot and mouth please call backto rs pt's post op . Please Best contact number: [phone] (mobile) Optimal time of day to reach caller: ANYTIME Additional comments/information from caller: None Note: Please do not reply to this message. Follow-up communication and further actions as a result of this message need to be communicated with the patient directly, if the patient is not active onMyChart. If the patient is active on MyChart, they will receive notification of the communication/outcome via MyChart. documented in this encounter Plan of Treatment [...] documented as of this encounter Care Teams Tandem Mill Operator Relationship Specialty Start Date End Date Shameka Quiñones, OPERATOR ASSISTANT I CEMENTING [address] [place] [address] PCP - General Family Medicine 08/22/23 documented as of this encounter
--- OUTSIDE RECORDS SUMMARY | 2025-01-20 10:17 | XMS_ITS | Clinical Summary ---
Author Organization [facility] Address [address] [place] [address] Care Team Providers Care Computer Equipment Installer Name Role Phone Ishmael Shamekanikko Rehman APRN Primary Care Provider [phone] Allergies Active Allergy Reactions Criticality Noted Date Comments Penicillin G Anaphylaxis High 06/21/2023 Penicillins Anaphylaxis High 11/02/2020 Medications multivitamin () 27-0.8 MG tablet Take 1 tablet by mouth 1 (one) time each day. 30 tablet 11 4 Active FLUoxetine (PROzac) 10 MG capsuleIndicati ons:Anxiety and depression Take 1 capsule by mouth daily. 30 capsule 5 5 05/03/20 25 Active atomoxetine (Strattera) 40 MG capsuleIndicati ons:History of ADHD Take 1 capsule by mouth daily. Swallow capsule whole; do not open. If opened accidentally, do not touch eyes; wash hands immediately (product is an eye irritant). 30 capsule 2 5 Active Active Problems Problem Noted Date Diagnosed Date RUQ pain 09/11/2024 Other headache syndrome 09/11/2024 Abnormal chromosomal and gen etic finding on screening mother 05/01/2024 Hx of tubal ligation 02/01/2024 Overview (02/01/2024): Positive test on admission. 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 Acute cholecystitis 01/31/2024 Overview (01/31/2024): -Meropenem (PCN allergy and ) -AM labs -Lap ccy tomorrow Hyperemesis affecting , antepartum 12/12 Infertility management 09/18/2021 Assessment & Plan (09/18/2021 1:43 PM EDT): - rec to wait until day 35 of this cycle. If not period take UPT. If it is negative restart with prometrium for cycle. - continue prometrium - switch to Letrozole 5 mg on days 3-7 of cycle - return for day 21 progesterone - partner for semen analysis - has apt set up with Dr. Fernandez Secondary amenorrhea 05/04/2021 Assessment & Plan (08/17/2021 11:56 AM EDT): - normal labs and ultrasound - repeat labs initially showed low estrogen but repeat was normal - concerned about insulin resistance - will do 2 hr GTT - rec to try OCPs to see if she will have a cycle - Sprintec Rx sent - also gave Dr. Fernandez contact info to have second opinion Assessment & Plan (07/14/2021 12:02 PM EST): - normal labs and ultrasound - desires fertility - will repeat labs - will switch to Prometrium to see if it will induce withdrawal bleeding. If it doesn't, we discussed trying OCPs to see if we can regulate a cycle for a few months. - clomid 100mg Rx sent in the event she has a period Assessment & Plan (05/19/2021 12:27 PM EST): - no withdrawal bleeding with provera - negative UPT today - normal labs and normal TVUS - desires fertility - discussed doing provera challenge again in September. If she doesn't have withdrawal bleeding at that time will pursue workup further - in the interim will continue progesterone challenges. If she has bleeding will call for clomid. - RTC September 2021 Assessment & Plan (05/04/2021 12:54 PM EST): - we discussed that this could likely be due to nexplanon just being removed and due to stress of that situation. - We also that we routinely don't worry about not have periods after you previously had normal ones until you don't have a period for 6 months. - She had normal prolactin, TSH, estradiol, FSH, and HbA1c - normal TVUS today - we discussed given her body time to have another cycle - we also discussed progesterone withdrawal bleed trial - she would like to try - provera 10mg X 10 days sent - RTC in a few months for progesterone x clomid if she still hasn't had a period Lichen sclerosus of female genitalia 12/13/2020 Acute vaginitis 11/02/2020 Hx of methicillin resistant Staphylococcus aureu s Resolved Problems Problem Noted Date Diagnosed Date Resolved Date 36 weeks gestation of 05/01/2024 10/26/2024 02/01/2024 02/01/2024 Overview (02/01/2024): S/p tubal ligation 1 month ago Diet controlled gestational diabetes mellitus (GDM) in third trimester 10/22/2023 12/09/2023 COVID-19 affecting in third trimester 10/22/2023 12/09/2023 Supervision of other high ri sk pregnancies, third trimester 10/22/2023 12/09/2023 Threatened premature labor, antepartum 09/04/2023 12/09/2023 Possible exposure to STD 12/13/2020 Encounter for surveillance o f Nexplanon subdermal contraceptive 11/02/2020 05/01/2024 Encounters Date Type Department Care Team Description 12/03/2024 Telephone Obstetrics & Gynecology [address] [place] [address] Glenn Vasquez MD HCN - Patient Message 12/02/2024 Orders Only [facility] [address] [facility] [place] [address] Shameka Quiñones APRN History of ADHD 12/01/2024 Telephone [facility] [address] [facility] [place] [address] Shameka Quiñones APRN Prior-authorization/i nsurance Verification 12/01/2024 Results Follow-Up [facility] [address] [facility] [place] [address] Shameka Quiñones, ELEVATOR MECHANIC APPRENTICE 11/30/2024 2:20 PM EDT Office Visit [facility] [address] [place] [address] Shameka Quiñones, ELEVATOR MECHANIC APPRENTICE Anxiety and depression (Primary Dx); History of ADHD; Abnormal laboratory test 11/30/2024 Travel 11/05/2024 Orders Only [facility] [address] [facility] [place] [address] Shameka Quiñones, ELEVATOR MECHANIC APPRENTICE Abnormal laboratory test (Primary Dx) 11/05/2024 Results Follow-Up [facility] [address] [place] [address] Shameka Quiñones, ELEVATOR MECHANIC APPRENTICE 11/04/2024 10:40 AM EDT Office Visit [facility] [address] [place] [address] Shameka Quiñones, ELEVATOR MECHANIC APPRENTICE Rapid heart rate (Primary Dx); Anxiety and depression 11/04/2024 Travel 11/03/2024 Orders Only External Location [address] [place] [address] Glenn Vasquez MD 11/02/2024 8:55 AM EDT Office Visit Obstetrics & Gynecology [facility] [place] [address] Glenn Vasquez MD Family planning (Primary Dx) 11/02/2024 Travel 10/26/2024 8:30 AM EDT Visit Obstetrics & Gynecology [facility] [place] [address] Glenn Vasquez MD Routine follow-up (Primary Dx); Family planning 10/26/2024 Travel from Last 3 Months Immunizations Immunization Administration Dates Next Due DTaP 11/20/2005, 5,11/22/2003,05/26,01/28/2003 DTaP, Unspecified 11/20/2005, 5,11/22/2003,01/28 HPV 9-Valent 08/04/2018 Hep A, Unspecified 12/12/2012 Hep A, ped/adol, 2 dose 04/24/2017,12/12/2012 Hep B, Adolescent or Pediatric 05/26/2003,2001 Hib (PRP-OMP) 07/07/2004,05/26/2003 Hib / Hep B 01/28/2003 IPV 11/20/2005, 4,05/26/2003,01/28 Influenza, injectable, quadr ivalent, preservative free 04/19/2023,04/19/2023,01/31/2022 MMR 11/20/2005,05/26/2003 Meningococcal B, Omv 07/29/2018,01/02/2018 Meningococcal MCV4O 01/02/2018 Meningococcal MCV4P 12/12/2012 [employer] COVID-19 Vac cine (Purple Cap) 12+ 09/06/2021 Tdap 09/03/2024, 4,04/26/2022,12/12 Varicella 12/12/2012,05/26/2003 Family History Medical History Relation Name Comments Mental illness Brother 1 Noe Well MRSA Brother 2 Noeselena Munguia Alcohol abuse Father Pankaj munguia Drug abuse Father Pankaj munguia Heart disease Father Pankaj munguia Heart disease Father's Brother Ismael Doradoton Kidney disease Maternal Grandfather Omer Reddy Bilateral breast cancer Maternal Grandmother Kayla shipman Breast cancer Maternal Grandmother Kayla Portillo Cancer Maternal Grandmother Kayla Portillo Cervical cancer Maternal Grandmother Kayla Portillo Colon cancer Maternal Grandmother Kayla Portillo Mental illness Maternal Grandmother Kayla Portillo Uterine cancer Maternal Great-Grandmother Autoimmune disease Mother Johanna Reddy Breast cancer Mother Johanna Reddy Drug abuse Mother's Brother Shakeel Louie No Known Problems Mother's Sister Heart disease Paternal Grandfather Donell Munguia Stroke Paternal Grandfather Donell Munguia No Known Problems Paternal Grandmother No Known Problems Son Relation Name Status Comments Brother 1 Noe Well Alive Brother 2 Noe Wells Father Pankaj ezra Alive Father's Brother Ismael Navin Alive Maternal Grandfather Omer Reddy Alive Maternal Grandmother Kayla Portillo Alive Maternal Great-Grandmother Mother Johanna Reddy Alive Mother's Brother Shakeel Louie Alive Mother's Sister Alive Paternal Grandfather Donell Munguia Paternal Grandmother Alive Son Alive Social History Tobacco Use Types Packs/Day Years [...] 12/03/2023 How often do you attend chur or islam services? Never 12/03/2023 Do you belong to any clubs o r organizations such as shinto groups, unions, fraternal or athletic groups, or [...] Recorded Patient Health Questionnaire-2 Score 2 11/30/2024 [facility] - Occupational Stress Questionnaire Answer [...] the Last Year Not on file 2024 [place] Depression Scale Answer Date Recorded [place] Depression Scale Total 7 10/26/2024 The thought of harming myself has occurred to me . Never 10/26/2024 Utilities Answer Date Recorded In the past 12 months has th e [employer], gas, oil, or water company threatened to [...] file Not on file Not on file Last Filed Vital Signs Vital Sign Reading Time Taken Comments Blood Pressure 122/72 11/30/2024 2:00 PM EDT Pulse 78 11/30/2024 2:00 PM EDT Temperature 36.9 C (98.4 F) 11/02/2024 8:34 AM EDT Respiratory Rate 18 11/30/2024 2:00 PM EDT Oxygen Saturation 100% 11/30/2024 2:00 PM EDT Inhaled Oxygen Concentration - - Weight 80.9 kg (178 lb 5.6 oz) 11/30/2024 2:00 P M EDT Height 165.1 cm (5' 5 ) 11/30/2024 2:00 PM EDT Body Mass Index 29.68 11/30/2024 2:00 PM EDT Plan of Treatment Health Maintenance Due Date Last Done Comments [facility]-Infant/Child/Adol SDOH Screenings 2001 HPV Vaccines (2 - 3-dose series) 09/01/2018 08/04/2018 [facility]- SDOH Screenings 10/21/2019 [facility]-Adult SDOH Screenings 10/21/2019 [facility]-Pap Smear 2022 [id number] Vaccine ( season) 2025 09/06/2021 [facility]-Influenza Vaccine (#1) 01/11/202510/23, 04/19/2023, 04/19/2023, Additional history exists [facility]-Chlamydia and Gonorrhea Screening 02/27/2025 02/28/2024, 02/28/2024, 04/19/2023, Additional history exists [facility]-Depression Screening 11/30/2025 025, 11/30/2024, 10/26/2024, Additional history exists [facility]-DTaP,Tdap,and Td Vaccines (10 - Td or Tdap) 09/03/2034 09/03/2024, 09/05/2023, 04/26/2022, Additional history exists [facility]-Zoster Vaccines (1 of 2) 10/21/2051 12/12/2012, 05/26/2003 [facility]-Hepatitis B Vaccines Completed 004, 01/28/2003, 2001 [facility]-HIB Vaccines Completed 07/07/2004, , 01/28/2003 [facility]-IPV Vaccines Completed 11/20/2005, 04/2004, 05/26/2003, Additional history exists [facility]-Varicella Vaccines Completed 12/12/2012, 2003 [facility]-Hepatitis A Vaccines Completed 017, 12/12/2012, 12/12/2012 [facility]-Diabetes: Hemoglobin A1C Discontinued 10/06/2023, 12/17/2022, 04/28/2021 [facility]-HIV Screening Completed 02/28/2024, , 11/22/2021 [facility]-Hepatitis C Screening Completed 2023, 04/19/2023, 11/22/2021 [facility]-Obesity Intervention Completed 025, 10/26/2024, 09/11/2024, Additional history exists [facility]-Pneumococcal Vaccine: Pediatrics (0 to 5 Years) and At-Risk Patients (6 to 49 Years) Aged Out No longer eligible based on patient's age to complete this topic [facility]-Rotavirus Vaccines Aged Out No lo nger eligible based on patient's age to complete this topic Goals Goal Patient Goal Type Associated Problems Recent Progress Patient-Stated? Author Delayed Delivery Care Plan CPM S22 PP LABOR (OBSTETRICS) No Open Scheduling, Background Procedures Procedure Name Priority Date/Time Associated Diagnosis Comments MORPHOLOGY Routine 11/30/2024 2:29 PM EDT Abnormal laboratory test CBC WITH AUTO DIFFERENTIAL Routine 11/30/2024 2:29 PM EDT Abnormal laboratory test TSH Routine 11/04/2024 11:22 AM EDT Rapid heart rate COMPREHENSIVE METABOLIC PANEL, PLASMA Routine 11/04/2024 11:22 AM EDT Rapid heart rate CBC W/O DIFFERENTIAL Routine 11/04/2024 11:22 AM EDT Rapid heart rate HEMOGLOBIN AND HEMATOCRIT, BLOOD Routine 11/03/2024 7:58 AM EDT , URINE Routine 11/03/2024 7:32 AM EDT HEPATITIS C ANTIBODY W/REFLEX TO HCV QUANT PCR Routine 02/28/2024 8:40 AM EDT Unsure of LMP (last menstrual period) as reason for ultrasound scan test positive HIV 1/2 ANTIBODY/ANTIGEN SCREEN WITH REFLEX TO HIV I/II DIFFERENTIATION Routine 02/28/2024 8:40 AM EDT Unsure of LMP (last menstrual period) as reason for ultrasound scan test positive CHLAMYDIA TRACHOMATIS DNA BY PCR Routine 02/28/2024 8:40 AM EDT Unsure of LMP (last menstrual period) as reason for ultrasound scan test positive HEMOGLOBIN A1C Routine 10/06/2023 11:45 PM EDT from Last 3 Months or Most Recently Relevant to Health Maintenance Results * Morphology (11/30/2024 2:29 PM EDT) RBC Morphology Slide Reviewed LAB HEMATOLOGY METHOD 11/30/2024 8:15 PM EDT [facility] Clumped Platelets Present LAB HEMATOLOGY METHOD 11/30/2024 8:15 PM EDT [facility] Blood Venous blood specimen / Unknown Venipuncture / Unknown 11/30/2024 2:29 PM EDT 11/30/2024 2:29 PM EDT us Shameka Quiñones APRN LAB BLOOD ORDERABLES Final Resu lt [facility] [address] [place] [address] * (ABNORMAL) CBC and Differential (11/30/2024 2:29 PM EDT) [facility] Signature WBC Count 11.66(H) 3.70 - 10.30 10*3/uL LAB HEMATOLOGY METHOD 11/30/2024 8:15 PM EDT [facility] RBC Count 4.84 3.90 - 5.20 10*6/uL LAB HEMATOLOGY METHOD 11/30/2024 8:15 PM EDT [facility] HGB 11.7 11.2 - 15.7 g/dL LAB HEMATOLOGY METHOD 11/30/2024 8:15 PM EDT [facility] HCT 38.8 34.0 - 45.0 % LAB HEMATOLOGY METHOD 11/30/2024 8:15 PM EDT [facility] Platelet Count 202 155 - 369 10*3/uL LAB HEMATOLOGY METHOD 11/30/2024 8:15 PM EDT [facility] MCV 80 79 - 98 fL LAB HEMATOLOGY METHOD 11/30/2024 8:15 PM EDT [facility] MCH 24.2(L) 26.0 - 32.0 pg LAB HEMATOLOGY METHOD 11/30/2024 8:15 PM EDT [facility] MCHC 30.2(L) 30.7 - 35.5 g/dL LAB HEMATOLOGY METHOD 11/30/2024 8:15 PM EDT [facility] RDW 17.2(H) 11.5 - 14.5 % LAB HEMATOLOGY METHOD 11/30/2024 8:15 PM EDT [facility] MPV LAB HEMATOLOGY METHOD 11/30/2024 8:15 PM EDT [facility] Comment:Not Measured nRBC 0.0 <=0.0 per 100 WBCs LAB HEMATOLOGY METHOD 11/30/2024 8:15 PM EDT [facility] Differential Type Automated LAB HEMATOLOGY METHOD 11/30/2024 8:15 PM EDT [facility] Neutrophils % 60 % LAB HEMATOLOGY METHOD 11/30/2024 8:15 PM EDT [facility] Lymphocytes % 32 % LAB HEMATOLOGY METHOD 11/30/2024 8:15 PM EDT [facility] Monocytes % 5 % LAB HEMATOLOGY METHOD 11/30/2024 8:15 PM EDT [facility] Eosinophils % 2 % LAB HEMATOLOGY METHOD 11/30/2024 8:15 PM EDT [facility] Basophils % 0 % LAB HEMATOLOGY METHOD 11/30/2024 8:15 PM EDT [facility] Immature Granulocytes % 1 % LAB HEMATOLOGY METHOD 11/30/2024 8:15 PM EDT [facility] Neutrophils Absolute 6.96(H) 1.60 - 6.10 10*3/uL LAB HEMATOLOGY METHOD 11/30/2024 8:15 PM EDT [facility] Lymphocytes Absolute 3.77 1.20 - 3.90 10*3/uL LAB HEMATOLOGY METHOD 11/30/2024 8:15 PM EDT [facility] Monocytes Absolute 0.63 0.30 - 0.90 10*3/uL LAB HEMATOLOGY METHOD 11/30/2024 8:15 PM EDT [facility] Eosinophils Absolute 0.19 0.00 - 0.50 10*3/uL LAB HEMATOLOGY METHOD 11/30/2024 8:15 PM EDT [facility] Basophils Absolute 0.04 0.00 - 0.10 10*3/uL LAB HEMATOLOGY METHOD 11/30/2024 8:15 PM EDT [facility] Immature Granulocytes Absolute 0.07(H) 0.00 - 0.06 10*3/uL LAB HEMATOLOGY METHOD 11/30/2024 8:15 PM EDT [facility] Blood Venous blood specimen / Unknown Venipuncture / Unknown 11/30/2024 2:29 PM EDT 11/30/2024 2:29 PM EDT Narrative [facility] - 11/30/2024 8:15 PM EDT Therapeutic decision making should be based on absolute values, rather than percentages. us Shameka Quiñones APRN LAB BLOOD ORDERABLES Final Resu lt [facility] [address] [place] [address] * (ABNORMAL) CBC W/O Differential (11/04/2024 11:22 AM EDT) WBC Count 14.82(H) 3.70 - 10.30 10*3/uL LAB HEMATOLOGY METHOD 11/04/2024 6:19 PM EDT [facility] RBC Count 4.37 3.90 - 5.20 10*6/uL LAB HEMATOLOGY METHOD 11/04/2024 6:19 PM EDT [facility] HGB 10.4(L) 11.2 - 15.7 g/dL LAB HEMATOLOGY METHOD 11/04/2024 6:19 PM EDT [facility] HCT 35.7 34.0 - 45.0 % LAB HEMATOLOGY METHOD 11/04/2024 6:19 PM EDT [facility] Platelet Count 339 155 - 369 10*3/uL LAB HEMATOLOGY METHOD 11/04/2024 6:19 PM EDT [facility] MCV 82 79 - 98 fL LAB HEMATOLOGY METHOD 11/04/2024 6:19 PM EDT [facility] MCH 23.8(L) 26.0 - 32.0 pg LAB HEMATOLOGY METHOD 11/04/2024 6:19 PM EDT [facility] MCHC 29.1(L) 30.7 - 35.5 g/dL LAB HEMATOLOGY METHOD 11/04/2024 6:19 PM EDT [facility] RDW 17.8(H) 11.5 - 14.5 % LAB HEMATOLOGY METHOD 11/04/2024 6:19 PM EDT [facility] MPV 11.2 8.8 - 12.5 fL LAB HEMATOLOGY METHOD 11/04/2024 6:19 PM EDT [facility] nRBC 0.0 <=0.0 per 100 WBCs LAB HEMATOLOGY METHOD 11/04/2024 6:19 PM EDT [facility] Blood Venous blood specimen / Unknown Venipuncture / Unknown 11/04/2024 11:22 AM EDT 11/04/2024 11:22 AM EDT us Shameka Quiñones ELEVATOR MECHANIC APPRENTICE LAB BLOOD ORDERABLES Final Resu lt [facility] [address] [place] [address] * Thyroid Stimulating Hormone, Plasma (11/04/2024 11:22 AM EDT) Thyroid Stimulating Hormone, Plasma 0.76 0.40 - 4.20 uIU/mL 11/04/2024 6:37 PM EDT [facility] Blood Venous blood specimen / Unknown Venipuncture / Unknown 11/04/2024 11:22 AM EDT 11/04/2024 11:22 AM EDT Narrative [facility] - 11/04/2024 6:37 PM EDT Trimester Specific Ranges TSH ( IU/mL) 1st Trimester 0.1 - 3.0 2nd Trimester 0.19 - 4.06 3rd Trimester 0.3 - 3.7 us Shameka Quiñones APRN LAB BLOOD ORDERABLES Final Resu lt [facility] [address] [place] [address] * (ABNORMAL) Comprehensive Metabolic Panel, Plasma (11/04/2024 11:22 AM EDT) Glucose, Plasma 98 74 - 99 mg/dL 11/04/2024 6:37 PM EDT [facility] BUN, Plasma 15 7 - 21 mg/dL 11/04/2024 6:37 PM EDT [facility] Creatinine, Plasma 0.79 0.60 - 1.10 mg/dL 11/04/2024 6:37 PM EDT [facility] BUN/Creatinine Ratio 19 11/04/2024 6:37 PM EDT [facility] Sodium, Plasma 144 136 - 145 mmol/L 11/04/2024 6:37 PM EDT [facility] Potassium, Plasma 4.4 3.6 - 4.9 mmol/L 11/04/2024 6:37 PM EDT [facility] Chloride, Plasma 108(H) 97 - 107 mmol/L 11/04/2024 6:37 PM EDT [facility] CO2, Plasma 25 22 - 29 mmol/L 11/04/2024 6:37 PM EDT [facility] Anion Gap 11 6 - 16 mmol/L 11/04/2024 6:37 PM EDT [facility] Total Calcium, Plasma 9.1 8.9 - 10.2 mg/dL 11/04/2024 6:37 PM EDT [facility] Total Protein 7.0 6.3 - 7.9 g/dL 11/04/2024 6:37 PM EDT [facility] Albumin, Plasma 4.0 3.5 - 5.2 g/dL 11/04/2024 6:37 PM EDT [facility] AST, Plasma 9(L) 10 - 35 U/L 11/04/2024 6:37 PM EDT [facility] ALT, Plasma 11 10 - 35 U/L 11/04/2024 6:37 PM EDT [facility] Alkaline Phosphatase, Plasma 104 35 - 104 U/L 11/04/2024 6:37 PM EDT [facility] Total Bilirubin, Plasma <0.2(L) 0.2 - 1.1 mg/dL 11/04/2024 6:37 PM EDT [facility] eGFRcr 107.9 mL/min/1.7 3m*2 11/04/2024 6:37 PM EDT [facility] Comment:Reported eGFRcr in m L/min/1.73m2 is based the CKD-EPI 2020 equation that does not use a race coefficient. Blood Venous blood specimen / Unknown Venipuncture / Unknown 11/04/2024 11:22 AM EDT 11/04/2024 11:22 AM EDT us Shameka Quiñones APRN LAB BLOOD ORDERABLES Final Resu lt [facility] [address] [place] [address] * (ABNORMAL) Hemoglobin and Hematocrit, Blood (11/03/2024 7:58 AM EDT) External Hemoglobin 11.0(L) 12.5 - 16.0 gm/dl [facility] External Hematocrit 35.7(L) 37.0 - 47.0 % [facility] 11/03/2024 7:58 AM EDT 11/03/2024 8:08 AM EDT us Generic [place] Provider LAB BLOOD ORDERABLES Final Result [facility] * , urine (11/03/2024 7:32 AM EDT) External Urine Test (Hcg) NEGATIVE NEGATIVE [facility] External HCG Urine Lot # [id number] [facility] External HCG Urine Expiration Date 07/02/25 [facility] External HCG Urine Internal Positive Control OK POSITIVE [facility] 11/03/2024 7:32 AM EDT 11/03/2024 7:37 AM EDT us Glenn Vasquez MD LAB URINE ORDERABLES Final Resu lt [facility] * Chlamydia trachomatis DNA by PCR (02/28/2024 8:40 AM EDT) Chlamydia trachomatis DNA PCR Result Not Detected Not Detected 03/01/2024 11:04 AM EDT [facility] Urine Urine specimen / Unknown Non-blood Collection / Unknown 02/28/2024 8:40 AM EDT 02/28/2024 12:54 PM EDT Narrative [facility] - 03/01/2024 11:04 AM EDT This test is performed by the [employer] m2000 instrument for Real Time PCR C. trachomatis and N. gonorrhea. This test is FDA approved for use with endocervical, vaginal, and urine specimens. This test is used for clinical purposes. It should not be regarded as invesigational or for research. The [facility] is certified under the Clinical Laboratory Improvement Amendments of 1988 (CLIA-88) as qualified to perform high complexity clinical laboratory testing. us Glenn Vasquez MD LAB MICROBIOLOGY - GENERAL ORDE RABLES Final Result [facility] [address] [place] [address] * HIV 1 & 2 Antibody/Antigen Screen (02/28/2024 8:40 AM EDT) HIV 1 & 2 Antibody/Antigen Screen Non Reactive Non Reactive 02/28/2024 2:04 PM EDT [facility] Comment:Screening for HIV 1 & 2 antibodies, and P24 antigen is NONREACTIVE. No confirmatory testing is required. Blood Venous blood specimen / Unknown Venipuncture / Unknown 02/28/2024 8:40 AM EDT 02/28/2024 12:50 PM EDT Result Celia Vasquez MD LAB BLOOD ORDERABLES Final Resu lt Performing Organization Address City/[facility]/ZIP Co de Phone Number [facility] [address] [place] [address] * Hepatitis C Antibody (02/28/2024 8:40 AM EDT) Pathologist [facility] Hepatitis C Antibody Negative Negative 02/28/2024 5:21 PM EDT [facility] Blood Venous blood specimen / Unknown Venipuncture / Unknown 02/28/2024 8:40 AM EDT 02/28/2024 12:50 PM EDT us Glenn Vasquez MD LAB BLOOD ORDERABLES Final Resu lt Performing Organization Address [facility] Co de Phone Number [facility] [address] [place] [address] * (ABNORMAL) Hemoglobin A1c (10/06/2023 11:45 PM EDT) Pathologist [facility] External Hemoglobin A1c 5.7(H) 3.8 - 5.6 % [facility] Comment: GLYCOSYLATED HEMOGLOBIN (A1C) EXPECTED RANGES: <6.5 NON-DIABETIC 6.5-7.5 EXCELLENT 7.5-8.5 GOOD >8.5 POOR 10/06/2023 11:4 5 PM EDT 10/07/2023 12:02 AM EDT us Generic [place] Provider LAB BLOOD ORDERABLES Final Result Performing Organization Address City/[facility] Co de Phone Number [facility] from Last 3 Months or Most Recently Relevant to Health Maintenance Additional Health Concerns Active Problems Noted Date Diagnosed Date CPM S22 PP LABOR (OBSTETRICS) 02/28/2024 Infection Onset Date Last Indicated MRSA 07/18/2023 07/18/2023 Insurance Advance Directives * Full Code (Latest Code Status on File) Date Activated Date Inactivated Comments 01/31/2024 7:05 PM 02/02/2024 4:25 PM Question Answer Comments Patient has decision-making capacity? Yes Care Teams Computer Equipment Installer Relationship Specialty Start Date End Date Shameka Quiñones APRN [address] [place] [id number] PCP - General Family Medicine 08/22/23
--- OUTSIDE RECORDS SUMMARY | 2025-01-20 10:17 | XMS_ITS | Encounter Summary ---
Author Organization Healthcare Address [address] [place] [address] Care Team Providers Care Rigging Slinger Name Role Phone Debra Arvizu APRN Primary Care Provider [phone] Shameka Quiñones APRN Primary Care Provider [phone] Encounter Details Date Type Department Care Team ([facility] st Contact Info) Description 03/19/2023 Outside Procedure External Location [address] [place] [address] Provider, [facility] Social History Tobacco Use Types Packs/Day Years Used Date Smoking Tobacco: Never Passive Smoke Exposure: Never Smokeless Tobacco: Never Alcohol Use Standard Drinks/Week Comments Never 0 (1 standard drink = 0.6 oz pur e alcohol) PHQ-2 Answer Date Recorded Patient Health Questionnaire-2 Score 0 01/29/2023 [place] Depression Scale Answer Date Recorded [place] Depression Scale Total 3 07/26/2022 The thought of harming myself has occurred to me . Never 07/26/2022 Comments No Sex and Gender Information Value [...] on file documented as of this encounter Procedures Procedure Name Priority Date/Time Associated Diagnosis Comments XR ANKLE LEFT 3+ VIEWS 03/19/2023 6:24 AM EST documented in this encounter Results * XR Ankle Left 3+ Views (03/19/2023 6:24 AM EST) Anatomical Region Laterality Modality Lower Extremities, Ankle Left Digital Radiography 03/19/2023 6:24 AM EST Narrative 03/19/2023 2:41 [place] [address] Name: BUFFY GREER Exam Date: 03/19/2023 : 2000 Age 22 Gender: F Physician: ARTURO LIVE Facility: [facility] Facility HSV: Outpatient Exam: ANKLE 3V LT Left ankle History: Acute left ankle pain Findings: 3 view exam. No acute displaced fracture or dislocation is identified. There is mild fragmentation of the distal fibula without associated soft tissue swelling. Mortise is intact. Impression: No acute bony abnormality. Mild fragmentation of the distal fibula without associated soft tissue swelling which may be sequela of prior trauma or developmental. Consider MRI if symptoms persist. Images reviewed, interpreted and dictated by Dr. Elam. Transcribed by Eliecer Lira PA-C Dictated By: LUCERO ELAM Transcribed By: Lucero Elam Transcribed On: 03/19/2023 2:28 PM Electronically signed by: LUCERO ELAM 03/19/2023 Thank you for referring BUFFY GREER to [facility]. Legally authenticated by POPE LUCERO Rehman 2023-03-19 14:28:36 Procedure Note Provider, [facility] [place] - 03/19/2023 [place] [address] Name: BUFFY GREER Exam Date: 03/19/2023 : 2000 Age 22 Gender: F Physician: ARTURO LIVE Facility: [facility] Facility HSV: Outpatient Exam: ANKLE 3V LT Left ankle History: Acute left ankle pain Findings: 3 view exam. No acute displaced fracture or dislocation is identified.There is mild fragmentation of the distal fibula without associated softtissue swelling. Mortise is intact. Impression: No acute bony abnormality. Mild fragmentation of the distal fibulawithout associated soft tissue swelling which may be sequela of prior trauma or developmental. Consider MRI if symptoms persist. Images reviewed, interpreted and dictated by Dr. Elam. Transcribed by Eliecer Lira PA-C Dictated By: LUCERO ELAM Transcribed By: Lucero Elam Transcribed On: 03/19/2023 2:28 PM Electronically signed by: LUCERO ELAM 03/19/2023 Thank you for referring BUFFY GREER to [facility]. Legally authenticated by POPE LUCERO Rehman 2023-03-19 14:28:36 Generic [place] Provider IMG XR PROCEDURES Fi nal Result documented in this encounter Visit Diagnoses Not on filedocumented in this encounter Additional Health Concerns Infection Onset Date Last Indicated Resolved Time COVID-19 Rule-Out 04/03/2023 04/03/2023 04/03/2023 3:48 PM EST COVID-19 Rule-Out 04/03/2023 04/03/2023 04/03/2023 8:28 PM EST Rhinovirus 04/15/2023 04/15/2023 01/31/2024 6:01 PM EDT MRSA 07/18/2023 07/18/2023 Respiratory Rule-Out 08/16/2023 08/16/2023 024 2:59 PM EDT MRSA Escalation Plan Comment:MRSA Escalation Plan is in effect as of 01/10/2024. Patient will require contact precautions for the duration of the hospital admission, regardless of movement to another unit. This infection may be resolved upon discharge from the hospital. 02/01/2024 02/01/2024 02/03/2024 5:23 AM E DT Assessment Noted Time A Body Mass Index follow-up plan has been documented for the patient 03/13/2023 1:21 PM EDT documented as of this encounter Care Teams Rigging Slinger Relationship Specialty Start Date End Date Debra Arvizu APRN [address] [address] PCP - General Family Medicine 12/17/22 08/21/23 Shameka Quiñones APRN [address] [place] [address] PCP - General Family Medicine 08/22/23 documented as of this encounter
--- OUTSIDE RECORDS SUMMARY | 2025-01-20 10:17 | XMS_ITS | Encounter Summary ---
Author Organization Healthcare Address [address] [place] [address] Care Team Providers Care Environmental Service Aide Name Role Phone Provider, [facility] [place] Primary Care Provid er Unavailable Debra Arvizu APRN Primary Care Provider [phone] Shameka Quiñones APRN Primary Care Provider [phone] Encounter Details Date Type Department Care Team (Late st Contact Info) Description 03/15/2021 Outside Procedure External Location [address] [place] [address] Glenn Vasquez MD [address] [place] [address] Social History Tobacco Use Types Packs/Day Years Used Date Smoking Tobacco: Never Smokeless Tobacco: Never Alcohol Use Standard Drinks/Week Comments Never 0 (1 standard drink = 0.6 oz pur e alcohol) Comments Unknown Sex and Gender Information Value Date Recorded Sex Assigned at Not on file Legal Sex Female 8:23 PM EDT Gender Identity Not on file Sexual Orientation Not on file COVID-19 Exposure Response Date Recorded In the last month, have you been in contact with someone who was confirmed or suspected to have Coronavirus / COVID-19? No / Unsure 03/15/2021 8:04 AM EDT documented as of this encounter Plan of Treatment Not on file documented as of this encounter Procedures Procedure Name Priority Date/Time Associated Diagnosis Comments XR HUMERUS LEFT 2+ VIEWS 03/15/2021 9:08 AM EDT documented in this encounter Results * XR Humerus Left 2+ Views (03/15/2021 9:08 AM EDT) Anatomical Region Laterality Modality Upper Extremities, Humerus Left Radio graphic Imaging 03/15/2021 9:08 AM EDT Narrative 03/15/2021 9:45 [place] [address] Name: BUFFY PÉREZ Exam Date: 03/15/2021 : 2000 Age 20 Gender: F Physician: GLENN VASQUEZ Facility: [facility] Facility HSV: Outpatient Exam: HUMERUS 2V MIN LT Left humerus History: Observation for control implant Findings: 2 views. There is a linear control implant in the distal medial arm. Bones appear normal. Impression: control implant is in the distal medial arm. Dictated By: RICHELLE RAINEY Transcribed By: RICHELLE RAINEY Transcribed On: 03/15/2021 9:34 AM Electronically signed by: RICHELLE RAINEY 03/15/2021 Thank you for referring BUFFY PÉREZ to [facility]. Legally authenticated by BRIGID PEOPLES 2021-03-15 09:34:06 Procedure Note Provider, [facility] [place] - 03/15/2021 [place] [address] Name: BUFFY PÉREZ Exam Date: 03/15/2021 : 2000 Age 20 Gender: F Physician: GLENN VASQUEZ Facility: [facility] Facility HSV: Outpatient Exam: HUMERUS 2V MIN LT Left humerus History: Observation for control implant Findings: 2 views. There is a linear control implant in the distal medial arm. Bones appear normal. Impression: control implant is in the distal medial arm. Dictated By: RICHELLE RAINEY Transcribed By: RICHELLE RAINEY Transcribed On: 03/15/2021 9:34 AM Electronically signed by: RICHELLE RAINEY 03/15/2021 Thank you for referring BUFFY PÉREZ to [facility]. Legally authenticated by BRIGID PEOPLES 2021-03-15 09:34:06 us Glenn Vasquez MD IMG XR PROCEDURES Final Result documented in this encounter Visit Diagnoses [...] 02/01/2024 02/01/2024 02/03/2024 5:23 AM E DT documented as of this encounter Care Teams Environmental Service Aide Relationship Specialty Start Date End Date Provider, Generic [place] PCP - General 11/02/2012/16 Debra Arvizu APRN [address] [facility] [address] [place] [address] PCP - General Family Medicine 12/17/22 08/21/23 Shameka Quiñones APRN [address] [place] [address] PCP - General Family Medicine 08/22/23 documented as of this encounter
--- OUTSIDE RECORDS SUMMARY | 2025-01-20 10:17 | XMS_ITS | Encounter Summary ---
Author Organization [facility] Address [address] [place] [address] Care Team Providers Care Multiple Games Dealer Name Role Phone Shameka Quiñones APRN Primary Care Provider [phone] Encounter Details Date Type Department Care Team (Late st Contact Info) Description 12/01/2024 Results Follow-Up [facility] [address] [place] [address] Shameka Quiñones APRN [address] [place] [address] Social History Tobacco Use Types Packs/Day Years [...] often do you attend chur ch or yazidism services? Never 12/03/2023 Do you belong to any clubs o r organizations such as quaker groups, unions, fraternal or athletic groups, or [...] Recorded Patient Health Questionnaire-2 Score 2 11/30/2024 [facility] - Occupational Stress [...] the Last Year Not on file 2024 [place] Depression Scale Answer Date Recorded [place] Depression Scale Total 7 10/26/2024 The thought [...] documented as of this encounter Care Teams Multiple Games Dealer Relationship Specialty Start Date End Date Shameka Quiñones, INVESTMENT STRATEGIST [address] [place] [address] PCP - General Family Medicine 08/22/23 documented as of this encounter
--- OUTSIDE RECORDS SUMMARY | 2025-01-20 10:17 | XMS_ITS | Encounter Summary ---
Author Organization Healthcare Address [address] [place] [address] Care Team Providers Care Physician Practice Coordinator Name Role Phone Debra Arvizu APRN Primary Care Provider [phone] Shameka Quiñones APRN Primary Care Provider [phone] Encounter Details Date Type Department Care Team ([facility] st Contact Info) Description 03/19/2023 Outside Procedure External Location [address] [place] [address] Provider, [facility] Social History Tobacco Use Types Packs/Day Years Used Date Smoking Tobacco: Never Passive Smoke Exposure: Never Smokeless Tobacco: Never Alcohol Use Standard Drinks/Week Comments Never 0 (1 standard drink = 0.6 oz pur e alcohol) PHQ-2 Answer Date Recorded Patient Health Questionnaire-2 Score 0 01/29/2023 [place] Depression Scale Answer Date Recorded [place] Depression Scale Total 3 07/26/2022 The thought [...] Name Priority Date/Time Associated Diagnosis Comments XR FOOT LEFT 3+ VIEWS 03/19/2023 6:24 AM EST documented in this encounter Results * XR Foot Left 3+ Views (03/19/2023 6:24 AM EST) Anatomical Region Laterality Modality Lower Extremities, Foot Left Digital Radiography 03/19/2023 6:24 AM EST Narrative 03/19/2023 2:41 [place] [address] Name: BUFFY GREER Exam Date: 03/19/2023 : 2000 Age 22 Gender: F Physician: ARTURO LIVE Facility: [facility] Facility HSV: Outpatient Exam: FOOT LT 3V Left foot History: Acute left foot pain Findings: 3 view exam. No acute displaced fracture or dislocation is identified. There is mild fragmentation of the distal fibula without associated soft tissue swelling. Joint spaces are preserved. Impression: No acute bony abnormality. Mild fragmentation [...] you for referring BUFFY GREER to [facility]. Legally authenticated by POPE LUCERO Rehman 2023-03-19 14:28:04 Procedure Note Provider, Generic [place] - 03/19/2023 [place] [address] Name: BUFFY GREER Exam Date: 03/19/2023 : 2000 Age 22 Gender: F Physician: ARTURO LIVE Facility: [facility] Facility HSV: Outpatient Exam: FOOT LT 3V Left foot History: Acute left foot pain Findings: 3 view exam. No acute displaced fracture or dislocation is identified.There is mild fragmentation of the distal fibula without associated softtissue swelling. Joint spaces are preserved. Impression: No acute bony abnormality. Mild fragmentation [...] Thank you for referring BUFFY GREER to [facility]. Legally authenticated by POPE LUCERO Rehman 2023-03-19 14:28:04 Generic [place] Provider IMG XR PROCEDURES Fi nal Result [...] documented as of this encounter Care Teams Physician Practice Coordinator Relationship Specialty Start Date End Date Debra Arvizu APRN [address] [address] PCP - General Family Medicine 12/17/22 08/21/23 Shameka Quiñones APRN [address] [place] [address] PCP - General Family Medicine 08/22/23 documented as of this encounter
--- OUTSIDE RECORDS SUMMARY | 2025-01-20 10:17 | XMS_ITS | Encounter Summary ---
Author Organization Healthcare Address [address] [place] [address] Care Team Providers Care Cane Cutter Name Role Phone Shameka Quiñones APRN Primary Care Provider [phone] Encounter Details Date Type Department Care Team (Late st Contact Info) Description 09/11/2024 Outside Procedure External Location [address] [place] [address] Provider, Nuria [facility] Social History Tobacco Use Types Packs/Day Years [...] often do you attend chur ch or mosque services? Never 12/03/2023 Do you belong to any clubs o r organizations such as yarsanism groups, unions, fraternal or athletic groups, or [...] Date Recorded Patient Health Questionnaire-2 Score 0 09/11/2024 [facility] - Occupational Stress [...] place to sleep or slept in a chcf (including now)? No 12/03/2023 [place] Depression Scale Answer Date Recorded [place] Depression Scale Total 0 12/09/2023 The thought of harming myself has occurred to me . Never 12/09/2023 PHQ-9 Answer Date Recorded Patient Health Questionnaire-9 Score 0 09/03/2024 Utilities Answer Date Recorded In the past 12 months has th e electric, gas, oil, or water company threatened to shut off services in your home? No 12/03/2023 PHQ-2A Answer Date Recorded Depression Risk 0 11/08/2023 Comments Yes Sex and Gender Information Value Date Recorded [...] Little interest or pleasure in doing things Not at all 09/11/2024 8:48 AM EDT Flavia Christianson RN Feeling down, depressed, or hopeless Not at all 09/11/2024 8:48 AM EDT Flavia Christianson RN Patient Health Questionnaire -2 Score 0 09/11/2024 8:48 AM EDT Flavia Christianson RN documented as of this encounter Plan of Treatment Not on file documented as of this encounter Goals Goal Patient Goal Type Associated Problems Recent Progress Patient-Stated? Author Delayed Delivery Care Plan CPM S22 PP LABOR (OBSTETRICS) No Open Scheduling, Background documented as of this encounter Procedures Procedure Name Priority Date/Time Associated Diagnosis Comments XR CHEST 1 VIEW 09/11/2024 2:04 PM EDT documented in this encounter Results * XR Chest 1 View (09/11/2024 2:04 PM EDT) Anatomical Region Laterality Modality Chest Digital Radiogra phy 09/11/2024 2:04 PM EDT Narrative 09/11/2024 4:50 [place] [address] Name: BUFFY GREER Exam Date: 09/11/2024 : 2000 Age 23 years Gender: F Physician: MYRNA CARTWRIGHT Facility: [facility] Facility HSV: Outpatient Exam: CHEST PORTABLE Procedure: XR CHEST 1 VIEW PORTABLE Exam Date: 09/11/2024 1:15 PM CDT Indication: Chest Tightness Comparison: Chest x-ray from 04/17/2023 Technique: Single AP view of the chest submitted for interpretation. Findings: Cardiomediastinal silhouette is normal. Mediastinum is in midline position. No consolidations. Low lung volumes with perihilar vascular crowding. Costophrenic angles sharp bilaterally. No pleural lines suggestive of pneumothorax. Osseous structures are unremarkable. IMPRESSION: Low lung volumes with perihilar vascular crowding. Electronically signed by: Alessandra Munson MD 09/11/2024 04:46 PM EDT Dictated By: Alessandra Munson Transcribed By: Transcribed On: 09/11/2024 2:15 PM Electronically signed by: Alessandra Munson 09/11/2024 [facility]. Legally authenticated by DREA MALAGON 2024-09-11 14:15:00 Procedure Note Provider, Nuria [facility] - 09/11/[address] [address] Name: BUFFY GREER Exam Date: 09/11/2024 : 2000 Age 23 years Gender: F Physician: MYRNA CARTWRIGHT Facility: [facility] Facility HSV: Outpatient Exam: CHEST PORTABLE Procedure: XR CHEST 1 VIEW PORTABLE Exam Date: 09/11/2024 1:15 PM CDT Indication: Chest Tightness Comparison: Chest x-ray from 04/17/2023 Technique: Single AP view of the chest submitted for interpretation. Findings: Cardiomediastinal silhouette is normal. Mediastinum is in midlineposition. No consolidations. Low lung volumes with perihilar vascular crowding. Costophrenic angles sharp bilaterally. No pleural lines suggestive of pneumothorax. Osseous structures are unremarkable. IMPRESSION: Low lung volumes with perihilar vascular crowding. Electronically signed by: Alessandra Munson MD 09/11/2024 04:46 PM EDT Dictated By: Alessandra Munson Transcribed By: Transcribed On: 09/11/2024 2:15 PM Electronically signed by: Alessandra Munson 09/11/2024 Thank you for referring BUFFY GREER to [facility]. Legally authenticated by DREA MALAGON 2024-09-11 14:15:00 Generic [facility] Provider IMG XR PROCEDURES Fi nal Result documented in this encounter Visit Diagnoses Not on filedocumented in this encounter Additional Health Concerns Active Problems Noted Date Diagnosed Date CPM S22 PP LABOR (OBSTETRICS) 02/28/2024 Infection Onset Date Last Indicated Resolved Time MRSA 07/18/2023 07/18/2023 Assessment Noted Time PHQ-9 Depression Total Score: 0 09/04/19 25 2:00 PM EDT A fall risk assessment has been complete d for the patient 09/11/2024 8:48 AM EDT A Body Mass Index follow-up plan has been documented for the patient 09/11/2024 12:30 PM EDT documented as of this encounter Care Teams Cane Cutter Relationship Specialty Start Date End Date Shameka Quiñones APRN [address] [place] [id number] PCP - General Family Medicine 08/22/23 documented as of this encounter
--- OUTSIDE RECORDS SUMMARY | 2025-01-20 10:17 | XMS_ITS | Encounter Summary ---
Author Organization Healthcare Address [address] [place] [address] Care Team Providers Care Staff Appraiser Name Role Phone Debra Arvizu APRN Primary Care Provider [phone] Shameka Quiñones APRN Primary Care Provider [phone] Encounter Details Date Type Department Care Team (Late st Contact Info) Description 04/17/2023 Outside Procedure External Location [address] [place] [address] Provider, [facility] Social History Tobacco Use Types Packs/Day Years Used Date Smoking Tobacco: Never Passive Smoke Exposure: Never Smokeless Tobacco: Never Alcohol Use Standard Drinks/Week Comments Never 0 (1 standard drink = 0.6 oz pur e alcohol) PHQ-2 Answer Date Recorded Patient Health Questionnaire-2 Score 0 04/19/2023 [place] Depression Scale Answer Date Recorded [place] Depression Scale Total 3 07/26/2022 The thought of harming myself has occurred to me . Never 07/26/2022 PHQ-2A Answer Date Recorded Patient Health Questionnaire-2 Score 0 04/19/2023 Comments Yes Sex and Gender Information Value [...] pleasure in doing things Not at all 04/19/2023 3:55 PM EST Diogenes Xiao Feeling down, depressed, or hopeless Not at all 04/19/2023 3:55 PM EST Diogenes Xiao Patient Health Questionnaire -2 Score 0 04/19/2023 3:55 PM EST Diogenes Xiao documented as of this encounter Plan of Treatment Not on file documented as of this encounter Procedures Procedure Name Priority Date/Time Associated Diagnosis Comments US PELVIS TRANSVAGINAL 04/17/2023 9:14 AM EST documented in this encounter Results * US Pelvis Transvaginal (04/17/2023 9:14 AM EST) Anatomical Region Laterality Modality Pelvis Ultrasound 04/17/2023 9:14 AM EST Narrative 04/17/2023 10:27 [place] [address] Name: BUFFY GREER Exam Date: 04/17/2023 : 2000 Age 22 Gender: F Physician: ALMA DELIA HENDRICKSON Facility: [facility] Facility HSV: Outpatient Exam: US TRANSVAGINAL PELVIC ULTRASOUND HISTORY: Bleeding during early Transvaginal pelvic exam: There is a single live intrauterine gestation of approximate 7 weeks 1 day. [place]-rump length measures 1 cm. heart rate is 127 bpm. Yolk sac measures 0.7 cm. Small crescentic area of subchorionic hemorrhage noted. Right ovary measures 3.3 x 2.1 x 1.8 cm. Left ovary is not identified. No evidence torsion on the right. CONCLUSION: Single 5 intrauterine gestation approximate 7 weeks. Small crescentic area of subchorionic hemorrhage noted. Lack of visualization of the left ovary. Serial beta-hCGs and pelvic ultrasounds recommended. Dictated By: LUCERO ELAM Transcribed By: Lucero Elam Transcribed On: 04/17/2023 10:12 AM Electronically signed by: LUCERO ELAM 04/17/2023 Thank you for referring BUFFY GREER to [facility]. Legally authenticated by POPE LUCERO Rehman 2023-04-17 10:12:40 Procedure Note Provider, [facility] - 04/17/2023 [facility] [address] [place] [address] Name: BUFFY GREER Exam Date: 04/17/2023 : 2000 Age 22 Gender: F Physician: ALMA DELIA HENDRICKSON Facility: [facility] Facility HSV: Outpatient Exam: US TRANSVAGINAL PELVIC ULTRASOUND HISTORY: Bleeding during early Transvaginal pelvic exam: There is a single live intrauterine gestationof approximate 7 weeks 1 day. [place]-rump length measures 1 cm. heartrate is 127 bpm. Yolk sac measures 0.7 cm. Small crescentic area ofsubchorionic hemorrhage noted. Right ovary measures 3.3 x 2.1 x 1.8 cm. Left ovary is not identified.No evidence torsion on the right. CONCLUSION: Single 5 intrauterine gestation approximate 7 weeks. Small crescentic area of subchorionic hemorrhage noted. Lack of visualization of the left ovary. Serial beta-hCGs and pelvic ultrasounds recommended. Dictated By: LUCERO ELAM Transcribed By: Lucero Elam Transcribed On: 04/17/2023 10:12 AM Electronically signed by: LUCERO ELAM 04/17/2023 Thank you for referring BUFFY GREER to [facility]. Legally authenticated by POPE LUCERO Rehman 2023-04-17 10:12:40 [facility] Provider IMG US PROCEDURES Fi nal Result documented in this [...] has been complete d for the patient 04/15/2023 2:10 PM EST A Body Mass Index follow-up plan has been documented for the patient 04/15/2023 2:51 PM EST documented as of this encounter Care Teams Staff Appraiser Relationship Specialty Start Date End Date Debra Arvizu APRN [address] [facility] [address] [place] [address] PCP - General Family Medicine 12/17/22 08/21/23 Shameka Quiñones APRN [address] [place] [address] PCP - General Family Medicine 08/22/23 documented as of this encounter
--- OUTSIDE RECORDS SUMMARY | 2025-01-20 10:17 | XMS_ITS | Encounter Summary ---
Author Organization Healthcare Address [address] [place] [address] Care Team Providers Care Metal Fabricator Welder Name Role Phone Shameka Quiñones APRN Primary Care Provider [phone] Encounter Details Date Type Department Care Team (Late st Contact Info) Description 08/18/2024 Outside Procedure External Location [address] [place] [address] Glenn Vasquez MD [address] [place] [address] Social History Tobacco Use Types [...] any clubs o r organizations such as anglican groups, unions, fraternal or athletic groups, or [...] Date Recorded Patient Health Questionnaire-2 Score 0 08/20/2024 [facility] - [...] place to sleep or slept in a alf (including now)? No 12/03/2023 [place] Depression Scale Answer Date Recorded [place] Depression Scale Total 0 12/09/2023 The thought of harming myself has occurred to me . Never 12/09/2023 PHQ-9 Answer Date Recorded Patient Health Questionnaire-9 Score 0 08/20/2024 Utilities Answer Date Recorded In the past 12 months has th e [employer], gas, oil, or water company threatened to [...] pleasure in doing things Not at all 08/20/2024 1:52 PM EDT Lilia Gan Feeling down, depressed, or hopeless Not at all 08/20/2024 1:52 PM EDT Lilia Gan Patient Health Questionnaire -2 Score 0 08/20/2024 1:52 PM EDT Lilia Gan * Question Answer Date of Assessment Author Trouble falling or staying a sleep, or sleeping too much Not at all 08/20/2024 1:52 PM EDLilia Medina Feeling tired or having marlena le energy Not at all 08/20/2024 1:52 PM EDT Lilia Gan Poor appetite or overeating Not at all 08/20/2024 1: 52 PM EDT Lilia Gan Feeling bad about yourself - or that you are a failure or have let yourself or your family down Not at all 08/20/2024 1:52 PM TATIANNAT Lilia Gan Trouble concentrating on thi ngs, such as reading the newspaper or watching television Not at all 08/20/2024 1:52 PM EDT Lilia Gan Moving or speaking so slowly that other people could have noticed? Or the opposite - being so fidgety or restless that you have been moving around a lot more than usual. Not at all 08/20/2024 1:52 PM TATIANNAT Lilia Gan Thoughts that you would be b kemal off or hurting yourself in some way Not at all 08/20/2024 1:52 PM EDT Lilia Gan Patient Health Questionnaire -9 Score 0 08/20/2024 1:52 PM EDT Lilia Gan * If you checked off any problems on this questionnaire so far, Question Answer Date of Assessment Author How difficult have these problems made it for you to do your work, take care of things at home, or get along with other people? Not difficult at all 08/20/2024 1:52 PM EDT Lilia Gan documented as of this encounter Plan of Treatment Not on file documented as of this encounter Goals Goal Patient Goal Type Associated Problems Recent Progress Patient-Stated? Author Delayed Delivery Care Plan CPM S22 PP LABOR (OBSTETRICS) No Open Scheduling, Background documented as of this encounter Procedures Procedure Name Priority Date/Time Associated Diagnosis Comments US RENAL COMPLETE 08/18/2024 4:2 5 PM EDT documented in this encounter Results * US Renal Complete (08/18/2024 4:25 PM EDT) Anatomical Region Laterality Modality Kidney Ultrasound 08/18/2024 4:25 PM EDT Narrative 08/18/2024 5:05 [place] [address] Name: BUFFY GREER Exam Date: 08/18/2024 : 2000 Age 23 years Gender: F Physician: GLENN VASQUEZ Facility: [facility] Facility HSV: Outpatient Exam: RENAL,BILATERAL US US [...] Thank you for referring BUFFY GREER to [facility]. Legally authenticated by CARLITA STAHL 2024-08-18 16:48:11 Procedure Note Provider, [facility] - 08/18/2024 [place] [address] Name: BUFFY GREER Exam Date: 08/18/2024 : 2000 Age 23 years Gender: F Physician: GLENN VASQUEZ Facility: [facility] Facility HSV: Outpatient Exam: RENAL,BILATERAL US US KIDNEY BILATERAL, 08/18/2024 3:48 PM CDT INDICATION: pelvic and perineal pain Ultrasound evaluation of both kidneys completed Right kidney 12.1 cm. Left kidney 10.3 cm. No hydronephrosis, masses, stones or perinephric fluid collections. IMPRESSION: Normal renal ultrasound . Electronically signed by: Jose F Serna MD 08/18/2024 05:01 PM EDTRP Dictated By: Jose F Serna Transcribed By: Transcribed On: 08/18/2024 4:48 PM Electronically signed by: Jose F Serna 08/18/2024 Thank you for referring BUFFY GREER to [facility]. 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
--- OUTSIDE RECORDS SUMMARY | 2025-01-20 10:17 | XMS_ITS | Encounter Summary ---
Author Organization [facility] Address [address] [place] [address] Care Team Providers Care Tipple Supervisor Name Role Phone Shameka Quiñones APRN Primary Care Provider [phone] Reason for Visit * Reason Onset Date Comments Prior-authorization/insurance Verification 12/01 Encounter Details Date Type Department Care Team (Late st Contact Info) Description 12/01/2024 Telephone [facility] Medicine [address] [place] [address] Shameka Quiñones APRN [address] [place] [address] Prior-authorization/ins urance Verification Social History Tobacco Use Types Packs/Day Years [...] often do you attend chur ch or jainism services? Never 12/03/2023 Do you belong to any clubs o r organizations such as sikh groups, unions, fraternal or athletic groups, or [...] Recorded Patient Health Questionnaire-2 Score 2 11/30/2024 [facility] - Occupational Stress Questionnaire Answer Date Recorded [...] the Last Year Not on file 2024 [place] Depression Scale Answer Date Recorded [place] Depression Scale Total 7 10/26/2024 The thought [...] encounter Miscellaneous Notes * Telephone Encounter - Mary Becerril - 12/03/2024 12:09 PM EDT Pt aware. * Telephone Encounter - Jaquelin Griggs LPN - 12/02/2024 11:30 AM EDT Lmtrc x 1 documented in this encounter Plan of Treatment [...] documented as of this encounter Care Teams Tipple Supervisor Relationship Specialty Start Date End Date Shameka Quiñones, HELEN [address] [place] [phone] PCP - General Family Medicine 08/22/23 documented as of this encounter
--- OUTSIDE RECORDS SUMMARY | 2025-01-20 10:17 | XMS_ITS | Patient Health Record ---
Author Organization [facility] Address [address] [facility] [address] [place] [address] Care Team Providers Care Licensed Insurance Agent Name Role Phone Moraima Redding Unavailable [phone] Allergies Allergen (clinical drug ingredient) Drug/Non Drug Allergy documented on EMR Reaction Allergy Type Onset Date Status Penicillin Anaphylaxis Drug Allergy Acti ve Reason For Referral No Information Medications Medication SIG (Take, Route, Frequency, Duration) Notes Start Date End Date Status Progesterone Micronized 200mg Capsules 2 capsules at bedtime by mouth daily; Duration: 10 days 08/18/2021 Active Gabapentin Active Social History Tobacco Use: Social History Observation Description Date Details (start date - stop date) Never Smoker NA - NA Social History Tobacco Use: Social Info Question Answer Notes Tobacco Use/Smoking Are you a nonsmoker Problems Problem Type SNOMED Code ICD Code Onset Dates Problem Status W/U Status Risk Notes Problem Amenorrhea (23102299) Amenorrhea (N91.2) Active confirmed Plan Of Treatment No Information Insurance Providers Payer Name Payer Address Payer Phone Subscriber Number Group Number Insured Name Patient Relationship to Insured Coverage Start Date Coverage End Date [employer] P[employer] [address] [place] [address] [id number] Daija Rojo Self - patient is the insured 2 Medical (General) History Medical History History ICD Code 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
--- OUTSIDE RECORDS SUMMARY | 2025-01-20 10:17 | XMS_ITS | Encounter Summary ---
Author Organization Healthcare Address [address] [place] [address] Care Team Providers Care Rubber Tubing Backer Name Role Phone Debra Arvizu APRN Primary Care Provider [phone] Shameka Quiñones APRN Primary Care Provider [phone] Encounter Details Date Type Department Care Team (Late st Contact Info) Description 04/17/2023 Outside Procedure External Location [address] [place] [address] Provider, [facility] Social History Tobacco Use Types Packs/Day Years Used Date Smoking Tobacco: Never Passive Smoke Exposure: Never Smokeless Tobacco: Never Alcohol Use Standard Drinks/Week Comments Never 0 (1 standard drink = 0.6 oz pur e alcohol) PHQ-2 Answer Date Recorded Patient Health Questionnaire-2 Score 0 04/19/2023 [place] Depression Scale Answer Date Recorded [place] Depression Scale Total 3 07/26/2022 The thought [...] Associated Diagnosis Comments XR CHEST 1 VIEW 04/17/2023 9:14 AM EST documented in this encounter Results * XR Chest 1 View (04/17/2023 9:14 AM EST) Anatomical Region Laterality Modality Chest Digital Radiogra phy 04/17/2023 9:14 AM EST Narrative 04/17/2023 4:08 [place] [address] Name: BUFFY GREER Exam Date: 04/17/2023 : 2000 Age 22 Gender: F Physician: ALMA DELIA HENDRICKSON Facility: [facility] Facility HSV: Outpatient Exam: CHEST PORTABLE PORTABLE CHEST HISTORY: Acute cough and congestion COMPARISON: 04/06/2023 FINDINGS: The heart and mediastinum are within normal limits. There is a persistent right infrahilar opacity. The bony structures are intact. IMPRESSION: Persistent right infrahilar opacity, correlate for atelectasis versus infiltrate. Continued follow-up recommended. Images reviewed, interpreted and dictated by Dr. Elam. Transcribed by Eliecer Lira PA-C Dictated By: LUCERO ELAM Transcribed By: Lucero Elam Transcribed On: 04/17/2023 3:53 PM Electronically signed by: LUCERO ELAM 04/17/2023 Thank you for referring BUFFY GREER to [facility]. Legally authenticated by POPE LUCERO Rehman 2023-04-17 15:53:57 Procedure Note Provider, [facility] - 04/17/2023 [place] [address] Name: BUFFY GREER Exam Date: 04/17/2023 : 2000 Age 22 Gender: F Physician: ALMA DELIA HENDRICKSON Facility: [facility] Facility HSV: Outpatient Exam: CHEST PORTABLE PORTABLE CHEST HISTORY: Acute cough and congestion COMPARISON: 04/06/2023 FINDINGS: The heart and mediastinum are within normal limits. There is a persistent right infrahilar opacity. The bony structures are intact. IMPRESSION: Persistent right infrahilar opacity, correlate foratelectasis versus infiltrate. Continued follow-up recommended. Images reviewed, interpreted and dictated by Dr. Elam. Transcribed by Eliecer Lira PA-C Dictated By: LUCERO ELAM Transcribed By: Lucero Elam Transcribed On: 04/17/2023 3:53 PM Electronically signed by: LUCERO ELAM 04/17/2023 Thank you for referring BUFFY GREER to [facility]. Legally authenticated by POPE LUCERO Rehman 2023-04-17 15:53:57 us Generic [place] Provider IMG XR PROCEDURES Fi nal Result [...] documented as of this encounter Care Teams Rubber Tubing Backer Relationship Specialty Start Date End Date Debra Arvizu APRN [address] [facility] [address] [place] [phone] PCP - General Family Medicine 12/17/22 08/21/23 Shameka Quiñones APRN [address] [place] [address] PCP - General Family Medicine 08/22/23 documented as of this encounter
--- OUTSIDE RECORDS SUMMARY | 2025-01-20 10:18 | XMS_ITS | Clinical Summary ---
Author Organization [facility] Address [address] [place] [address] Care Team Providers Care Instrument Tester Name Role Phone Provider, No Known Primary Care Provider Unavail able Medications No known medications Social History Tobacco Use Types Packs/Day Years Used Date Smoking Tobacco: Never Assessed Abuse Screen Answer Date Recorded Unsafe at Home or Work/School Not on file Feels Threatened by Someone? Not on file Does Anyone Keep You from Co ntacting Others or Doint Things Outside the Home? Not on file 02/22/2023 Physical Sign of Abuse Present Not on file 1 Housing Stability Answer Date Recorded Current Living Arrangements Not on file 02/10 Potentially Unsafe Housing Conditions Not on morales e 02/22/2023 Family and Community Support Answer Basim e Recorded Help with Day-to-Day Activities Not on file 02/22/2023 Lonely or Isolated Not on file 02/22/2023 Employment Answer Date Recorded Do you want help finding or keeping work or a lorna b? Not on file 02/22/2023 Disabilities Answer Date Recorded Concentrating, Remembering, or Making Decisions Difficulty Not on file 02/22/2023 Doing Errands Independently Difficulty Not on fi le 02/22/2023 Education Answer Date Recorded Help with school or training? Not on file Preferred Language Not on file 02/22/2023 Comments Unknown Sex and Gender Information Value Date Recorded Sex Assigned at Not on file Legal Sex Female 7:56 PM EDT Gender Identity Not on file Sexual Orientation Not on file Plan of Treatment Health Maintenance Due Date Last Done Comments ANNUAL PHYSICAL 2000 Annual Gynecologic Pelvic an d Breast Exam 2000 HPV VACCINES (2 - 3-dose series) 09/01/2018 08/04/2018 COVID-19 Vaccine (2 - 2024-2 6 season) 2025 09/06/2021 INFLUENZA VACCINE 02/10/2025 01/31/2022 TDAP/TD VACCINES (3 - Td or Tdap) 04/26/2032 04/26/2022, 12/12/2012 MENINGOCOCCAL B VACCINE Completed 07/30/19 19, 01/02/2018 HEPATITIS C SCREENING Completed 11/22/2021 Pneumococcal Vaccine 0-49 Aged Out No longer eligible based on patient's age to complete this topic Insurance [facility] PPO Care Teams Instrument Tester Relationship Specialty Start Date End Date Provider, No Known [facility] [address] PCP - General 08/18/21
--- OUTSIDE RECORDS SUMMARY | 2025-01-20 10:18 | XMS_ITS | Encounter Summary ---
Author Organization Healthcare Address [address] [place] [address] Care Team Providers Care Passenger Car Inspector Name Role Phone Debra Arvizu APRN Primary Care Provider [phone] Shameka Quiñones APRN Primary Care Provider [phone] Encounter Details Date Type Department Care Team ([facility] st Contact Info) Description 04/06/2023 Outside Procedure External Location [address] [place] [address] Provider, [facility] Social History Tobacco Use Types Packs/Day Years Used Date Smoking Tobacco: Never Passive Smoke Exposure: Never Smokeless Tobacco: Never Alcohol Use Standard Drinks/Week Comments Never 0 (1 standard drink = 0.6 oz pur e alcohol) PHQ-2 Answer Date Recorded Patient Health Questionnaire-2 Score 0 04/08/2023 [place] Depression Scale Answer Date Recorded [place] Depression Scale Total 3 07/26/2022 The thought of harming myself has occurred to me . Never 07/26/2022 PHQ-2A Answer Date Recorded Patient Health Questionnaire-2 Score 0 04/08/2023 Comments No Sex and Gender Information Value [...] pleasure in doing things Not at all 04/08/2023 3:04 PM Katlyn Hackett Feeling down, depressed, or hopeless Not at all 04/08/2023 3:04 PM EST Katlyn Oro Patient Health Questionnaire -2 Score 0 04/08/2023 3:04 PM EST Katlyn Oro documented as of this encounter Plan of Treatment Not on file documented as of this encounter Procedures Procedure Name Priority Date/Time Associated Diagnosis Comments XR CHEST 1 VIEW 04/06/2023 12:27 PM EST documented in this encounter Results * XR Chest 1 View (04/06/2023 12:27 PM EST) Anatomical Region Laterality Modality Chest Digital Radiogra phy 04/06/2023 12:2 7 PM EST Narrative 04/06/2023 4:39 PM EST [address] [address] Name: BUFFY GREER Exam Date: 04/06/2023 : 2000 Age 22 Gender: F Physician: BEATA WHEELER Facility: [facility] Facility HSV: Outpatient Exam: CHEST PORTABLE ONE VIEW CHEST. HISTORY: Shortness of breath COMPARISON: FINDINGS: The heart is normal in size. The mediastinum is unremarkable. There is a questionable right base opacity which may represent atelectasis or infiltrate. There is no pneumothorax. There is no acute osseous abnormality. IMPRESSION: Right basilar atelectasis or infiltrate. Continued follow-up is recommended. Images reviewed, interpreted and dictated by Dr. Pope Chavarria Transcribed by Serjio Lucero (R) Dictated By: LUCERO ELAM Transcribed By: Lucero Elam Transcribed On: 04/06/2023 4:25 PM Electronically signed by: LUCERO ELAM 04/06/2023 Thank you for referring BUFFY GREER to [facility]. Legally authenticated by POPE LUCERO Rehman 2023-04-06 16:25:55 Procedure Note Provider, [facility] - 04/06/[address] [address] Name: BUFFY GREER Exam Date: 04/06/2023 : 2000 Age 22 Gender: F Physician: BEATA WHEELER Facility: [facility] Facility HSV: Outpatient Exam: CHEST PORTABLE ONE VIEW CHEST. HISTORY: Shortness of breath COMPARISON: FINDINGS: The heart is normal in size. The mediastinum is unremarkable.There is a questionable right base opacity which may represent atelectasis or infiltrate. There is no pneumothorax. There is no acute osseousabnormality. IMPRESSION: Right basilar atelectasis or infiltrate. Continued follow-upis recommended. Images reviewed, interpreted and dictated by Dr. Pope Chavarria Transcribed by Serjio Lucero (R) Dictated By: LUCERO ELAM Transcribed By: Lucero Elam Transcribed On: 04/06/2023 4:25 PM Electronically signed by: LUCERO ELAM 04/06/2023 Thank you for referring BUFFY GREER to [facility]. Legally authenticated by POPE LUCERO Rehman 2023-04-06 16:25:55 us Generic [place] Provider IMG XR PROCEDURES Fi nal Result [...] has been complete d for the patient 03/29/2023 3:50 PM EST A Body Mass Index follow-up plan has been documented for the patient 04/03/2023 4:26 PM EST documented as of this encounter Care Teams Passenger Car Inspector Relationship Specialty Start Date End Date Debra Arvizu APRN [address] [facility] [address] [place] [address] PCP - General Family Medicine 12/17/22 08/21/23 Shameka Quiñones APRN [address] [place] [phone] PCP - General Family Medicine 08/22/23 documented as of this encounter
--- OUTSIDE RECORDS SUMMARY | 2025-01-20 10:18 | XMS_ITS | Encounter Summary ---
Author Organization Healthcare Address [address] [place] [address] Care Team Providers Care Advertising Writer Name Role Phone Debra Arvizu APRN Primary Care Provider [phone] Shameka Quiñones TAX ASSOCIATE Primary Care Provider [phone] Encounter Details Date Type Department Care Team ([facility] st Contact Info) Description 03/25/2023 Outside Procedure External Location [address] [place] [address] Provider, [facility] Social History Tobacco Use Types Packs/Day Years Used Date Smoking Tobacco: Never Passive Smoke Exposure: Never Smokeless Tobacco: Never Alcohol Use Standard Drinks/Week Comments Never 0 (1 standard drink = 0.6 oz pur e alcohol) PHQ-2 Answer Date Recorded Patient Health Questionnaire-2 Score 0 03/29/2023 [place] Depression Scale Answer Date Recorded [place] Depression Scale Total 3 07/26/2022 The thought [...] pleasure in doing things Not at all 03/26/2023 11:09 AM Nohemy Castellanos Feeling down, depressed, or hopeless Not at all 03/26/2023 11:09 AM Sobeida Castellanosa C Patient Health Questionnaire -2 Score 0 03/26/2023 11:09 AM EST Nohemy Rueda documented as of this encounter Plan of Treatment Not on file documented as of this encounter Procedures Procedure Name Priority Date/Time Associated Diagnosis Comments XR FOOT LEFT 3+ VIEWS 03/25/2023 1:55 PM EST documented in this encounter Results * XR Foot Left 3+ Views (03/25/2023 1:55 PM EST) Anatomical Region Laterality Modality Lower Extremities, Foot Left Digital Radiography 03/25/2023 1:55 PM EST Narrative 03/25/2023 5:23 [place] [address] Name: BUFFY GREER Exam Date: 03/25/2023 : 2000 Age 22 Gender: F Physician: CHANTEL BEAUCHAMP Facility: [facility] Facility HSV: Outpatient Exam: FOOT LT 3V Left foot 3 VIEW HISTORY: Pain. FINDINGS: Well-corticated ossicle adjacent to the lateral malleolus is likely reflective of sequela of old trauma. No evidence of an acute, displaced fracture or dislocation of the visualized bony architecture. The joint spaces appear normal. IMPRESSION: No acute bony abnormality. Dictated By: Mark Mo Transcribed By: Mark Hester Transcribed On: 03/25/2023 2:45 PM Electronically signed by: Mark Mo 03/25/2023 Thank you for referring BUFFY GREER to [facility]. Legally authenticated by HEATH MOREL 2023-03-25 14:45:37 Procedure Note Provider, [facility] - 03/25/2023 [place] [address] Name: LEYDAABBIBUFFY Exam Date: 03/25/2023 : 2000 Age 22 Gender: F Physician: CHANTEL BEAUCHAMP Facility: [facility] Facility HSV: Outpatient Exam: FOOT LT 3V Left foot 3 VIEW HISTORY: Pain. FINDINGS: Well-corticated ossicle adjacent to the lateral malleolus islikely reflective of sequela of old trauma. No evidence of an acute, displaced fracture or dislocation of the visualized bony architecture. The jointspaces appear normal. IMPRESSION: No acute bony abnormality. Dictated By: Mark Mo Transcribed By: Mark Hester Transcribed On: 03/25/2023 2:45 PM Electronically signed by: Mark Mo 03/25/2023 Thank you for referring PERCY BUFFY to [facility]. Legally authenticated by HEATH MOREL 2023-03-25 14:45:37 Generic [place] Provider IMG XR PROCEDURES Fi nal Result [...] plan has been documented for the patient 03/25/2023 1:22 PM EST documented as of this encounter Care Teams Advertising Writer Relationship Specialty Start Date End Date Debra Arvizu APRN [address] [facility] [address] [place] [phone] PCP - General Family Medicine 12/17/22 08/21/23 Shameka Quiñones APRN [address] [place] [address] PCP - General Family Medicine 08/22/23 documented as of this encounter
== END 2025-01-19 23:59 | disposition home or self-care (01) ==
LOC: LAB.DROPOF 01-20 10:08
PROVIDERS: PCP Nurse Practitioner; Visit Provider Nurse Practitioner
DX: J06.9 Acute upper respiratory infection, unspecified (principal)
CPT/HCPCS: 87636